=== PATIENT | female | born 1930 | race Caucasian/White ===

== ENCOUNTER → 2016-12-07 | Outpatient (CLI) | payer MEDICARE, BC | LOC: MW.CHGS 08:00 | PROVIDERS: ATTEND Surgery | DX: R19.09 Other intra-abdominal and pelvic swelling, mass and lump (principal) | CPT/HCPCS: 99203 ==

== ENCOUNTER 2016-12-15 16:53 | Emergency (ER) | payer MEDICARE, BC ==
--- NOTE | 2016-12-15 17:25 | EDM.PDOC ---
ED HPI GENERAL MEDICAL PROBLEM - General Chief Complaint: Upper Extremity Injury/Pain Stated Complaint: PT FELL AND HURT RT SHOULDER Time Seen by Provider: 12/15/16 17:00 Source of Information: Reports: Patient, Family (Daughter) History Limitations: Reports: No Limitations - History of Present Illness INITIAL COMMENTS - FREE TEXT/NARRATIVE: Presents stating that she was helping her daughter with some gardening when she missed a small step on the patio and fell striking her right shoulder on the ground. She has a skin tear on her right elbow, an abrasion on her right shoulder and a little pain in her right shoulder. Right Shoulder Pain Score (Numeric/FACES): 1 - Related Data Allergies Allergy/AdvReac Type Severity Reaction Status Date / Time No Known Allergies Allergy Verified 12/15/16 17:02 Home Meds: Home Meds Acetaminophen [Tylenol] 650 mg PO Q4H PRN 11/03/13 [History] DULoxetine [Cymbalta] 1 tab PO DAILY 11/03/13 [History] Methotrexate 1 tab PO ASDIRECTED 11/03/13 [History] Omeprazole 40 mg PO DAILY 11/03/13 [History] Vitamin B Complex 1 each PO DAILY 11/03/13 [History] traMADol [Ultram] 50 mg PO Q6H PRN 11/03/13 [History] Denosumab [Prolia] 1 injection IM ASDIRECTED 12/25/14 [History] oxyCODONE HCl/Acetaminophen [oxyCODONE-Acetaminophen 5-325] 1 tab PO ASDIRECTED PRN 12/25/14 [History] Past Medical History HEENT History: Reports: Hard of Hearing Other HEENT History: slight [place] Musculoskeletal History: Reports: Arthritis - Infectious Disease History Infectious Disease History: Reports: Chicken Pox, Measles, Mumps - Past Surgical History GI Surgical History: Reports: Appendectomy, Other (See Below) Other GI Surgeries/Procedures: stomach resection 3/4 Social & Family History - Family History Family Medical History: Noncontributory - Tobacco Use Smoking Status *Q: Never Smoker Years of Tobacco use: 25 - Alcohol Use Days Per Week of Alcohol Use: 0 - Recreational Drug Use Recreational Drug Use: No Review of Systems - Review of Systems Review Of Systems: ROS reveals no pertinent complaints other than HPI. ED EXAM, GENERAL - Physical Exam Exam: See Below Exam Limited By: No Limitations General Appearance: Alert, No Apparent Distress, Thin (Bony), Other (Conversive and jolly) Ears: Normal External Exam Nose: Normal Inspection Throat/Mouth: Normal Inspection Head: Atraumatic, Normocephalic Neck: Normal Inspection Respiratory/Chest: No Respiratory Distress, Lungs Clear, Normal Breath Sounds Cardiovascular: Normal Peripheral Pulses, Regular Rate, Rhythm, No Murmur GI/Abdominal: Normal Bowel Sounds, Soft Back Exam: Other (Severe kyphosis and scoliosis) Extremities: Other (Right shoulder with previous deformity per patient and her daughter. There is a small superficial abrasion over the right shoulder. There is a 6 cm bomerange skin tear to the right elbow that her daughter cleaned and dressed before arrival. Full range of motion of the right shoulder elbow wrist and digits to the limits of her pre-existing arthritis) Neurological: Alert, Oriented Psychiatric: Normal Affect, Normal Mood Skin Exam: Warm, Dry, Intact, Normal Color, No Rash Lymphatic: No Adenopathy Course - Vital Signs Last Recorded V/S: Last Vital Signs Temp 37.0 C 12/15/16 17:05 Pulse 65 12/15/16 17:05 Resp 16 12/15/16 17:05 BP 144/84 H 12/15/16 17:05 Pulse Ox 93 L 12/15/16 17:05 - Orders/Labs/Meds Orders: Active Orders 24 hr Category Date Time Status Shoulder Comp Rt [CR] Stat Exams 12/15/16 17:17 Taken Departure - Departure Time of Disposition: 18:25 Disposition: Home, Self-Care 01 Clinical Impression: Shoulder injury Qualifiers: Encounter type: initial encounter Laterality: right Qualified Code(s): S49.91XA - Unspecified injury of right shoulder and upper arm, initial encounter - Discharge Information Forms: ED Department Discharge Additional Instructions: 1. Cool packs 30 minutes on 30 minutes off first 24 hours while awake and as needed. 2. Curtail activity tonight and for 24 hours. 3. Tylenol as needed. - My Orders Last 24 Hours: My Active Orders 12/15/16 17:17 Shoulder Comp Rt [CR] Stat - Assessment/Plan Last 24 Hours: My Active Orders 12/15/16 17:17 Shoulder Comp Rt [CR] Stat
[2016-12-15 19:14] VITALS: BP 180/85
--- NOTE | 2016-12-17 14:41 | CR ---
EXAM DATE: 12/15/16 PATIENT'S AGE: 86 Patient: JAIME ANN Facility: [place], [place] Site . Site : 1930 Study: XRay Shoulder Right [id number]/3/2017 5:41:46 PM Ordering Physician: Doctor Molina Final Report: TECHNIQUE: Three views of the right shoulder. INDICATION: Fall and shoulder pain. COMPARISON: 11/03/2013. FINDINGS: The humeral head and glenoid are dysplastic. The humerus is displaced superiorly , and appears impacted on the scapular spine, which is fractured either acutely or subacutely. No other fracture is identified. The AC joint appears intact. Dictated by Jerry Hooker MD @ 12/15/2016 6:13:23 PM Dictated by: Jerry Hooker MD @ 12/15/2016 18:13:29 (Electronic Signature) Report Signed by Proxy. [email or web address]
== END 2016-12-15 19:12 | disposition home or self-care (01) ==
LOC: MW.ED 16:53
DX: S40.211A Abrasion of right shoulder, initial encounter (principal); W01.198A Fall on same level from slipping, tripping and stumbling with subsequent striking against other object, initial encounter; Z90.49 Acquired absence of other specified parts of digestive tract; Z79.899 Other long term (current) drug therapy
CPT/HCPCS: 73030-26-RT; 73030-RT; 99282; 99283

== ENCOUNTER 2017-02-06 08:51 | Day surgery (SDC) | payer MEDICARE, BC ==
[~2017-02-06 08:51] MED LIST: Bupivacaine 0.25%/EPINEPHrine 1:200,000 10 ML SDV INJECT ONE; Bupivacaine 0.25%/EPINEPHrine 1:200,000 10 ML SDV ONE; Lactated Ringers 1,000 ML IV SCH; ceFAZolin 1 GM in Premix Bag 1 BAG IV ONE
--- NOTE | 2017-02-06 09:29 | PCM.PREANE ---
Preanesthetic Assessment - Anesthesia/Transfusion/Family Hx Anesthesia History: Prior Anesthesia Without Reaction Family History of Anesthesia Reaction: No Transfusion History: No Prior Transfusion(s) Intubation History: Unknown - Review of Systems General: No Symptoms Pulmonary: No Symptoms Cardiovascular: No Symptoms Gastrointestinal: No Symptoms Neurological: No Symptoms Other: Reports: None - Physical Assessment Height: 1.47 m Weight: 40.37 kg ASA Class: 3 Mental Status: Alert & Oriented x3 Airway Class: Mallampati = 2 Dentition: Reports: Dentures (upper), Partial (lower) Thyro-Mental Finger Breadths: 3 Mouth Opening Finger Breadths: 2 ROM/Head Extension: Limited/Partial Lungs: Clear to Auscultation, Normal Respiratory Effort Cardiovascular: Regular Rate, Regular Rhythm - Allergies Allergies/Adverse Reactions: Allergies Allergy/AdvReac Type Severity Reaction Status Date / Time No Known Allergies Allergy Verified 12/15/16 17:02 - Blood Blood Available: No - Anesthesia Plan Pre-Op Medication Ordered: None - Acknowledgements Anesthesia Type Planned: MAC Pt an Appropriate Candidate for the Planned Anesthesia: Yes Alternatives and Risks of Anesthesia Discussed w Pt/Guardian: Yes Pt/Guardian Understands and Agrees with Anesthesia Plan: Yes PreAnesthesia Questionnaire HEENT History: Reports: Hard of Hearing, Macular Degeneration Other HEENT History: wears glasses, top denture & bottom partial Respiratory History: Reports: Other (See Below) (mass of left lung (unknown origen)) Other Gastrointestinal History: hx stomach cancer 20 years ago with subtotal gastric resection 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 History: Reports: None 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: Musculoskeletal History: Reports: Arthritis, Osteoporosis, RA, Other (See Below ) (bad scoliosis) Psychiatric History: Reports: Depression Hematologic History: Reports: Anemia Oncologic (Cancer) History: Reports: Other (See Below) Other Oncologic History: stomach - Infectious Disease History Infectious Disease History: Reports: Chicken Pox, Measles, Mumps - Past Surgical History Head Surgeries/Procedures: Reports: None HEENT Surgical History: Reports: Cataract Surgery GI Surgical History: Reports: Appendectomy, Colon, Other (See Below) Other GI Surgeries/Procedures: stomach resection for stomach cancer (3/4 of her stomach), partial bowel resection for "twisted bowel" Female Surgical History: Reports: Section Musculoskeletal Surgical History: Reports: Knee Replacement - SUBSTANCE USE Smoking Status *Q: Former Smoker Tobacco Use Within Last Twelve Months: Cigarettes Days Per Week of Alcohol Use: 0 Recreational Drug Use History: No - HOME MEDS Home Medications: Home Meds DULoxetine [Cymbalta] 30 mg PO DAILY 11/03/13 [History] Methotrexate 6 tab PO ASDIRECTED 11/03/13 [History] Omeprazole 20 mg PO DAILY 11/03/13 [History] traMADol [Ultram] 50 mg PO Q6H PRN 11/03/13 [History] Acetaminophen [Arthritis Pain Relief] 2 tab PO BID 02/01/17 [History] Calcium Phosphate Trib/Vit D3 [Calcium Adult Gummies] 600 mg CHEW BID 02/01/17 [ History] Denosumab [Prolia] 1 injection IM ASDIRECTED 02/01/17 [History] Docusate Sodium [Stool Softener] 100 mg PO BID 02/01/17 [History] Ferrous Sulfate [Iron] 325 mg PO ASDIRECTED 02/01/17 [History] Fish Oil/[employer]-3 Fatty Acids [Fish Oil 1,000 MG] 1 tab PO DAILY 02/01/17 [ History] Folic Acid 1 mg PO DAILY 02/01/17 [History] Multivitamin [Multivitamins] 1 tab PO DAILY 02/01/17 [History] Vit A/Vit C/Vit E/Zinc/Copper [Preservision] 1 tab PO DAILY 02/01/17 [History] - CURRENT (IN HOUSE) MEDS Current Meds: Current Medications Lactated Ringer's (Ringers, Lactated) 1,000 mls @ 75 mls/hr IV ASDIRECTED REPLACED BY [facility] Last Admin: 02/06/17 09:18 Dose: 75 mls/hr Discontinued Medications Bupivacaine HCl/Epinephrine Bitart (Marcaine 0.25%/Epinephrine 1:200,000) 20 ml INJECT ONETIME ONE Stop: 02/06/17 08:01 Bupivacaine HCl/Epinephrine Bitart (Marcaine 0.25%/Epinephrine 1:200,000) Confirm Administered Dose 30 ml .ROUTE .STK-MED ONE Stop: 02/06/17 07:23 Cefazolin Sodium/Dextrose 1 gm (/ Premix) 50 mls @ 100 mls/hr IV ONETIME ONE Stop: 02/06/17 08:54
[2017-02-06] MEDS ORDERED: Midazolam 1 MG/ML 2 ML SDV ONE (10:10)
[2017-02-06] MEDS ORDERED: Ondansetron 4 MG/2 ML SDV ONE (10:10)
[2017-02-06] MEDS ORDERED: fentaNYL 100 MCG/2 ML SDV ONE (10:10)
[2017-02-06] MEDS ORDERED: Propofol 200 MG/20 ML SDV ONE (10:10)
[2017-02-06] MEDS ORDERED: ceFAZolin 1 GM Vial ONE (10:22)
[2017-02-06 13:32] VITALS: BP 157/90
--- NOTE | 2017-02-07 09:07 | PCM.OPNOTE ---
- General Post-Op/Procedure Note Date of Surgery/Procedure: 02/06/17 Operative Procedure(s): excisoin of left groin/abdominal lymph node Pre Op Diagnosis: enlarged lymph node Post-Op Diagnosis: Same Anesthesia Technique: Local, MAC Primary Surgeon: Sherri Graves Assistant Program Director: Yanelis Unger Complications: None Condition: Good Free Text/Narrative:: [id number]
--- NOTE | 2017-02-07 09:59 | OR ---
SURGEON: JUDD PLATA MD DATE OF PROCEDURE: 02/06/2017 PREOPERATIVE DIAGNOSIS: Enlarged lymph node. POSTOPERATIVE DIAGNOSIS: Enlarged lymph node. PROCEDURE: Excision of left groin/abdominal lymph node. TOBACCO DRIER OPERATOR: KALANI Rodas INDICATION: Ms. Butts is an 86-year-old female with likely lymphoma, however, the biopsy has been nondiagnostic due to the necrotic nature of the tissues. We discussed options for excisional biopsy of the lymph node for a sufficient tissue for testing. She and her family would like to proceed. Risks were including, but not limited to, bleeding, infection, damage to underlying or overlying structures, possible need for future interventions and possible scarring. PROCEDURE IN DETAIL: After informed consent was obtained and placed on the chart, the patient was brought to the operative theater and laid in supine position. After adequate local MAC anesthetic was obtained, the area was prepped and draped, and a time- out was completed to confirm side and site. Attention was then paid to the elliptical excision of the mass in the left lower abdomen. A 15 blade was used to dissect through the skin and Bovie electrocautery through the subcutaneous tissues. This was circumferentially dissected and sent for pathology. Meticulous hemostasis was obtained, and the wound was closed using deep 3-0 Monocryl stitches and a running 4-0 subcuticular for the skin. This was dressed with Steri-Strips and Tegaderm border. The patient tolerated the procedure well. All counts and needles were correct at the end of the case. FOLLOWUP INSTRUCTIONS: The patient will see us in clinic in 10 days or sooner if any problems, questions, or concerns. She can shower per usual. KEMAL / JANNET /[phone]
== END 2017-02-06 13:19 | disposition home or self-care (01) ==
LOC: MW.SDS 08:51
PROVIDERS: ATTEND Plastic Surgery
PROC: 07TJ0ZZ Resection of Left Inguinal Lymphatic, Open Approach (ICD-10-PCS; principal; 2017-02-06)
DX: C83.35 Diffuse large B-cell lymphoma, lymph nodes of inguinal region and lower limb (principal); M19.90 Unspecified osteoarthritis, unspecified site; M81.0 Age-related osteoporosis without current pathological fracture; M06.9 Rheumatoid arthritis, unspecified; F32.9 Major depressive disorder, single episode, unspecified; Z85.028 Personal history of other malignant neoplasm of stomach; Z79.899 Other long term (current) drug therapy; Z90.49 Acquired absence of other specified parts of digestive tract; Z98.890 Other specified postprocedural states; Z96.659 Presence of unspecified artificial knee joint; Z87.891 Personal history of nicotine dependence
CPT/HCPCS: 38500; 88307; J0690; J2250; J2405; J3010; J7120; 00840; J2704

== ENCOUNTER 2017-02-07 18:04 | Emergency (ER) | payer MEDICARE, BC ==
--- NOTE | 2017-02-07 19:27 | EDM.PDOC ---
ED HPI GENERAL MEDICAL PROBLEM - General Stated Complaint: PT HAS LUMP ON RT LEG Time Seen by Provider: 02/07/17 18:41 Source of Information: Reports: Patient, Family History Limitations: Reports: No Limitations - History of Present Illness INITIAL COMMENTS - FREE TEXT/NARRATIVE: HISTORY AND PHYSICAL: [] 86-year-old female walks to the emergency room with her daughter concerned about right lower leg with erythema and a "lump" History of Present Illness: [] Patient had just had a small lesion removed from the left groin and now noticed this on her leg Patient has history of leukocytosis, hypertension, skin tears, arthritis Review of Systems: As per history of present illness and below otherwise all systems reviewed and negative. Past medical history: As per history of present illness and as reviewed below otherwise noncontributory. Surgical history: As per history of present illness and as reviewed below otherwise noncontributory. Social history: No reported history of drug or alcohol abuse. Family history: As per history of present illness and as reviewed below otherwise noncontributory. Physical exam: Pleasant woman alert and oriented. Answering questions appropriately HEENT: Atraumatic, normocehpalic, pupils reactive, negative for conjunctival pallor or scleral icterus, mucous membranes moist, throat clear, neck supple, nontender, trachea midline. Lungs: Clear to auscultation, breath sounds equal bilaterally, chest non tender. Heart: S1S2, regular, negative for clicks, rubs, or JVD. Abdomen: Soft, nondistended, nontender. Negative for masses or hepatossplenmegaly. Negative for costovertebral tenderness. Pelvis: Stable nontender. 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: Deferred. Rectal: Deferred Extremities: Atraumatic, negative for cords or calf pain. Erythema noted to the anterior surface of her right lower leg. Right calf has a sore that is erythematous mildly tender Neurovascular unremarkable. Neuro: Awake, alert, oriented. Cranial nerves II through XII unremarkable. Cerebellum unremarkable. Motor and sensory unremarkable throughout. Exam nonfocal. Diagnostics: [Ultrasound negative for any DVT] Therapeutics: [] Impression: [#1 cellulitis #2 localized skin infection] Plan: [Antibiotic therapy Augmentin 875 twice a day 10 days Symptomatic measures reviewed follow up with your primary care provider next week ] Definitive disposition and diagnosis as appropriate pending reevaluation and review of above. Onset: Today Duration: Hour(s): Location: Reports: Lower Extremity, Right Quality: Reports: Ache Severity: Mild Improves with: Reports: None Worsens with: Reports: None Right Lower Leg Pain Score (Numeric/FACES): 2 - Related Data Allergies Allergy/AdvReac Type Severity Reaction Status Date / Time No Known Allergies Allergy Verified 02/07/17 18:34 Home Meds: Home Meds Methotrexate 6 tab PO ASDIRECTED 11/03/13 [History] Omeprazole 20 mg PO DAILY 11/03/13 [History] traMADol [Ultram] 100 mg PO Q6H PRN 11/03/13 [History] Acetaminophen [Arthritis Pain Relief] 2 tab PO BID 02/01/17 [History] Calcium Phosphate Trib/Vit D3 [Calcium Adult Gummies] 600 mg CHEW BID 02/01/17 [ History] Docusate Sodium [Stool Softener] 100 mg PO BID 02/01/17 [History] Ferrous Sulfate [Iron] 650 mg PO ASDIRECTED 02/01/17 [History] Fish Oil/[employer]-3 Fatty Acids [Fish Oil 1,000 MG] 1 tab PO DAILY 02/01/17 [ History] Folic Acid 1 mg PO DAILY 02/01/17 [History] Multivitamin [Multivitamins] 1 tab PO DAILY 02/01/17 [History] Past Medical History HEENT History: Reports: Hard of Hearing, Macular Degeneration Other HEENT History: wears glasses, top denture & bottom partial Respiratory History: Reports: Other (See Below) (mass of left lung (unknown origen)) Other Gastrointestinal History: hx stomach cancer 20 years ago with subtotal gastric resection 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 History: Reports: None 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: Musculoskeletal History: Reports: Arthritis, Osteoporosis, RA, Other (See Below) Psychiatric History: Reports: Depression Hematologic History: Reports: Anemia Oncologic (Cancer) History: Reports: Other (See Below) Other Oncologic History: stomach - Infectious Disease History Infectious Disease History: Reports: Chicken Pox, Measles, Mumps - Past Surgical History Head Surgeries/Procedures: Reports: None HEENT Surgical History: Reports: Cataract Surgery GI Surgical History: Reports: Appendectomy, Colon, Other (See Below) Other GI Surgeries/Procedures: stomach resection for stomach cancer (3/4 of her stomach), partial bowel resection for "twisted bowel" Female Surgical History: Reports: Section Musculoskeletal Surgical History: Reports: Knee Replacement Dermatological Surgical History: Reports: Skin Biopsy Social & Family History - Family History Family Medical History: Noncontributory - Tobacco Use Smoking Status *Q: Never Smoker Years of Tobacco use: 25 Used Tobacco, but Quit: Yes Month Tobacco Last Used: quit smoking 33 yrs ago - Caffeine Use Caffeine Use: Reports: Coffee - Alcohol Use Days Per Week of Alcohol Use: 0 - Recreational Drug Use Recreational Drug Use: No Review of Systems - Review of Systems Review Of Systems: See Below ED EXAM, GENERAL - Physical Exam Exam: See Below (See dictation) Course - Vital Signs Last Recorded V/S: Last Vital Signs Temp 36.6 C 02/07/17 18:35 Pulse 86 02/07/17 18:35 Resp 16 02/07/17 18:35 BP 134/85 02/07/17 18:35 Pulse Ox 92 L 02/07/17 18:35 - Orders/Labs/Meds Orders: Active Orders 24 hr Category Date Time Status Venous Doppler Lwr Ext Rt [US] Stat Exams 02/07/17 18:14 Taken Departure - Departure Time of Disposition: 19:30 Disposition: Home, Self-Care 01 Condition: Good Clinical Impression: Cellulitis - Discharge Information - My Orders Last 24 Hours: My Active Orders 02/07/17 18:14 Venous Doppler Lwr Ext Rt [US] Stat - Assessment/Plan Last 24 Hours: My Active Orders 02/07/17 18:14 Venous Doppler Lwr Ext Rt [US] Stat
[2017-02-08 03:15] VITALS: BP 124/65
--- NOTE | 2017-02-08 18:03 | US ---
EXAM DATE: 02/07/17 PATIENT'S AGE: 86 Patient: JAIME ANN Facility: [place], [place] Site . Site : 1930 Study: US Extremity Right [id number]/27/2017 7:15:31 PM Ordering Physician: Doctor Molina Final Report: INDICATION: R leg red, warm, post op INDICATION: Right lower extremity pain and swelling TECHNIQUE: Ultrasound venous duplex lower right extremity. Compression venous exam was performed using ko-scale, color Doppler, and spectral Doppler imaging. COMPARISON: FINDINGS: Sonographic imaging demonstrates the right common femoral, deep femoral, superficial femoral, popliteal, posterior tibial and greater saphenous and the contralateral left common femoral veins to be fully compressible with normal color Doppler blood flow. Complex hypoechoic and slightly echogenic nodular density in the medial calf region is identified measuring 2.7 x 2.2 x 2.7 centimeters is identified. IMPRESSION: Normal right lower extremity venous ultrasound, no sign of deep venous thrombosis. Complex nodular density in the medial right lower extremity calf region is identified which may reflect a hematoma but is nonspecific by ultrasound. Dictated by Nathan Atkinson MD @ 02/07/2017 7:29:54 PM Dictated by: Nathan Atkinson MD @ 02/07/2017 19:30:00 (Electronic Signature) Report Signed by Proxy. ARIA
== END 2017-02-07 20:04 | disposition home or self-care (01) ==
LOC: MW.ED 18:04
DX: L03.115 Cellulitis of right lower limb (principal); M19.90 Unspecified osteoarthritis, unspecified site; M81.0 Age-related osteoporosis without current pathological fracture; Z86.2 Personal history of diseases of the blood and blood-forming organs and certain disorders involving the immune mechanism; Z85.028 Personal history of other malignant neoplasm of stomach; Z98.49 Cataract extraction status, unspecified eye; Z90.49 Acquired absence of other specified parts of digestive tract; Z96.659 Presence of unspecified artificial knee joint; Z87.891 Personal history of nicotine dependence; Z79.899 Other long term (current) drug therapy
CPT/HCPCS: 93971-26-RT; 93971-RT; 99283; 99284-25

== ENCOUNTER 2017-03-05 10:12 | Inpatient (IN) | payer MEDICARE, BC ==
[2017-03-05] MEDS ORDERED: Albuterol/Ipratropium 3.0-0.5 MG/3 ML Neb Soln NEB ONE (10:23)
[2017-03-05] MEDS ORDERED: Sodium Chloride 0.9% 1,000 ML IV ONE (10:25)
--- NOTE | 2017-03-05 10:26 | EDM.PDOC ---
ED HPI GENERAL MEDICAL PROBLEM - General Chief Complaint: Respiratory Problem Stated Complaint: TROUBLE BREATHING Time Seen by Provider: 03/05/17 10:26 Source of Information: Reports: Patient, Family History Limitations: Reports: No Limitations - History of Present Illness INITIAL COMMENTS - FREE TEXT/NARRATIVE: HISTORY AND PHYSICAL: 86-year-old female presenting to the emergency room today with complaints of difficulty breathing History of Present Illness: 86-year-old female presents to the emergency room today with family member with complaints of difficulty breathing. Patient relates more difficulty getting breath in. Patient had her first chemotherapy treatment last week for her lymphoma . Saturday presented to the cancer center and had a Neupogen injection. Daughter is at bedside. Patient does have PICC line in place. Review of Systems: As per history of present illness and below otherwise all systems reviewed and negative. Past medical history: As per history of present illness and as reviewed below otherwise noncontributory. Surgical history: As per history of present illness and as reviewed below otherwise noncontributory. Social history: No reported history of drug or alcohol abuse. Family history: As per history of present illness and as reviewed below otherwise noncontributory. Physical exam: Very fragile-looking female who is alert answers questions appropriately is having to utilize neck muscles to help with breathing. O2 at 3 L per nasal cannula saturation level is 95%. HEENT: Atraumatic, normocehpalic, pupils reactive, negative for conjunctival pallor or scleral icterus, mucous membranes moist, throat clear, neck supple, nontender, trachea midline. Lungs: Clear to auscultation, diminished breath sounds equal bilaterally, chest non tender. Heart: S1S2, regular, negative for clicks, rubs, or JVD. Abdomen: Soft, nondistended, nontender. Negative for masses or hepatossplenmegaly. Negative for costovertebral tenderness. Pelvis: Stable nontender. 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: Deferred. Rectal: Deferred Extremities: Atraumatic, negative for cords or calf pain. Neurovascular unremarkable. Neuro: Awake, alert, oriented. Cranial nerves II through XII unremarkable. Cerebellum unremarkable. Motor and sensory unremarkable throughout. Exam nonfocal. Discussed case with patient and her daughter she does have a diagnosis of pneumonia. Would like to inpatient admission and have discussed this with Dr. Nathan Herrera who is in agreement with this course of action. Patient was started on Rocephin while in the emergency department and given by mouth azithromycin. Diagnostics: [CBC CMP chest x-ray EKG] Therapeutics: []500 bolus normal saline RT treatment of DuoNeb Rocephin 1 g IV Azithromycin 500 mg by mouth Impression: [#1 pneumonia #2 hypoxemia] Plan: []Admission to medical surgical floor Definitive disposition and diagnosis as appropriate pending reevaluation and review of above. Onset: Sudden Duration: Day(s): (2), Getting Worse Location: Reports: Chest Severity: Moderate - Related Data Allergies Allergy/AdvReac Type Severity Reaction Status Date / Time No Known Allergies Allergy Verified 03/05/17 10:31 Home Meds: Home Meds Methotrexate 6 tab PO ASDIRECTED 11/03/13 [History] Omeprazole 20 mg PO DAILY 11/03/13 [History] traMADol [Ultram] 100 mg PO Q6H PRN 11/03/13 [History] Acetaminophen [Arthritis Pain Relief] 2 tab PO BID 02/01/17 [History] Calcium Phosphate Trib/Vit D3 [Calcium Adult Gummies] 500 mg CHEW BID 02/01/17 [ History] Docusate Sodium [Stool Softener] 100 mg PO BID 02/01/17 [History] Ferrous Sulfate [Iron] 650 mg PO ASDIRECTED 02/01/17 [History] Fish Oil/[place]-3 Fatty Acids [Fish Oil 1,000 MG] 1 tab PO DAILY 02/01/17 [ History] Folic Acid 1 mg PO DAILY 02/01/17 [History] Multivitamin [Multivitamins] 1 tab PO DAILY 02/01/17 [History] Past Medical History HEENT History: Reports: Hard of Hearing, Macular Degeneration Other HEENT History: wears glasses, top denture & bottom partial Respiratory History: Reports: Other (See Below) (mass of left lung (unknown origen)) Other Gastrointestinal History: hx stomach cancer 20 years ago with subtotal gastric resection 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 History: 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: Musculoskeletal History: Reports: Arthritis, Osteoporosis, RA, Other (See Below) Psychiatric History: Reports: Depression Hematologic History: Reports: Anemia Oncologic (Cancer) History: Reports: Other (See Below) Other Oncologic History: stomach - Infectious Disease History Infectious Disease History: Reports: Chicken Pox, Measles, Mumps - Past Surgical History Head Surgeries/Procedures: Reports: None HEENT Surgical History: Reports: Cataract Surgery GI Surgical History: Reports: Appendectomy, Colon, Other (See Below) Other GI Surgeries/Procedures: stomach resection for stomach cancer (3/4 of her stomach), partial bowel resection for "twisted bowel" Female Surgical History: Reports: Section Musculoskeletal Surgical History: Reports: Knee Replacement Dermatological Surgical History: Reports: Skin Biopsy Social & Family History - Family History Family Medical History: Noncontributory - Tobacco Use Smoking Status *Q: Never Smoker Years of Tobacco use: 25 Used Tobacco, but Quit: Yes Month Tobacco Last Used: quit smoking 33 yrs ago - Caffeine Use Caffeine Use: Reports: Coffee - Alcohol Use Days Per Week of Alcohol Use: 0 - Recreational Drug Use Recreational Drug Use: No ED ROS GENERAL - Review of Systems Review Of Systems: ROS reveals no pertinent complaints other than HPI. ED EXAM, GENERAL - Physical Exam Exam: See Below (see dictation) EKG INTERPRETATION EKG Date: 03/05/17 Rhythm: NSR Course - Vital Signs Last Recorded V/S: Last Vital Signs Temp 36.3 C 03/05/17 10:17 Pulse 102 H 03/05/17 11:30 Resp 18 03/05/17 11:30 BP 139/83 03/05/17 11:30 Pulse Ox 96 03/05/17 11:30 - Orders/Labs/Meds Orders: Active Orders 24 hr Category Date Time Status Patient Status [ADT] Stat ADT 03/05/17 11:56 Ordered EKG Documentation Completion [RC] STAT Care 03/05/17 10:24 Active Oxygen Therapy, ED [RC] ASDIRECTED Care 03/05/17 10:23 Active RT Aerosol Therapy [RC] ASDIRECTED Care 03/05/17 10:24 Active COMPREHENSIVE METABOLIC PN,CMP [CHEM] Stat Lab 03/05/17 10:54 Received Azithromycin [Zithromax] Med 03/05/17 12:00 Ordered 500 mg PO Q24H cefTRIAXone [Rocephin in Dextrose,Iso-Osm 1 GM/50 ML] 1 Med 03/05/17 11:49 Ordered gm Premix Bag 1 bag IV ONETIME Medication Orders Azithromycin (Zithromax) 500 mg PO Q24H CATIE Ceftriaxone Sodium/Dextrose 1 (gm/ Premix) 50 mls @ 100 mls/hr IV ONETIME ONE Stop: 08/22/17 12:18 Labs: Laboratory Tests 03/05/17 03/05/17 Range/Units 10:54 10:54 WBC 22.70 H (4.0-11.0) K/uL RBC 3.22 L (4.30-5.90) M/uL Hgb 10.6 L (12.0-16.0) g/dL Hct 32.2 L (36.0-46.0) % MCV 100.0 H (80.0-98.0) fL MCH 32.9 H (27.0-32.0) pg MCHC 32.9 (31.0-37.0) g/dL RDW Std Deviation 62.3 H (28.0-62.0) fl RDW Coeff of Monica 17 H (11.0-15.0) % Plt Count 59 L (150-400) K/uL MPV 10.70 (7.40-12.00) fL Add Manual Diff YES Neutrophils % (Manual) 98 H (48.0-80.0) % Band Neutrophils % 1 % Lymphocytes % (Manual) 1 L (16.0-40.0) % Nucleated RBC % 0.0 /100WBC Absolute Seg Neuts 22.2 Band Neutrophils # 0.2 Lymphocytes # (Manual) 0.2 Nucleated RBCs # 0 K/uL B-Natriuretic Peptide 741 H (<100) PG/ML Meds: Medications Generic Name Dose Route Start Last Admin Trade Name Freq PRN Reason Stop Dose Admin Azithromycin 500 mg 03/05/17 12:00 Zithromax PO Q24H CATIE Ceftriaxone Sodium/Dextrose 1 50 mls @ 100 mls/hr 03/05/17 11:49 gm/ Premix IV 03/05/17 12:18 ONETIME ONE Discontinued Medications Generic Name Dose Route Start Last Admin Trade Name Freq PRN Reason Stop Dose Admin Albuterol/Ipratropium 3 ml 03/05/17 10:23 03/05/17 10:31 Duoneb 3.0-0.5 Mg/3 Ml NEB 03/05/17 10:24 3 ml ONETIME ONE Administration Sodium Chloride 1,000 mls @ 999 mls/hr 03/05/17 10:25 03/05/17 10:58 Normal Saline IV 03/05/17 11:25 999 mls/hr STAT ONE Administration Departure - Departure Time of Disposition: 12:00 Disposition: Admitted As Inpatient 64 Condition: Good Clinical Impression: Hypoxemia Pneumonia Qualifiers: Pneumonia type: due to unspecified organism Laterality: unspecified laterality Lung location: lower lobe of lung Qualified Code(s): J18.1 - Lobar pneumonia, unspecified organism - Discharge Information Additional Instructions: The following information is given to patients seen in the emergency department who are being discharged to home. This information is to outline your options for follow-up care. We provide all patients seen in our emergency department with a follow-up referral. The need for follow-up, as well as the timing and circumstances, are variable depending upon the specifics of your emergency department visit. If you don't have a primary care physician on staff, we will provide you with a referral. We always advise you to contact your personal physician following an emergency department visit to inform them of the circumstance of the visit and for follow-up with them and/or the need for any referrals to a consulting specialist. The emergency department will also refer you to a specialist when appropriate. This referral assures that you have the opportunity for followup care with a specialist. All of these measure are taken in an effort to provide you with optimal care, which includes your followup. Under all circumstances we always encourage you to contact your private physician who remains a resource for coordinating your care. When calling for followup care, please make the office aware that this follow-up is from your recent emergency room visit. If for any reason you are refused follow-up, please contact the [facility] emergency department at and asked to speak to the emergency department charge nurse. - My Orders Last 24 Hours: My Active Orders 03/05/17 10:23 Oxygen Therapy, ED [RC] ASDIRECTED 03/05/17 10:24 EKG Documentation Completion [RC] STAT RT Aerosol Therapy [RC] ASDIRECTED 03/05/17 10:54 COMPREHENSIVE METABOLIC PN,CMP [CHEM] Stat 03/05/17 11:49 cefTRIAXone [Rocephin in Dextrose,Iso-Osm 1 GM/50 ML] 1 gm Premix Bag 1 bag IV ONETIME 03/05/17 11:56 Patient Status [ADT] Stat 03/05/17 12:00 Azithromycin [Zithromax] 500 mg PO Q24H - Assessment/Plan Last 24 Hours: My Active Orders 03/05/17 10:23 Oxygen Therapy, ED [RC] ASDIRECTED 03/05/17 10:24 EKG Documentation Completion [RC] STAT RT Aerosol Therapy [RC] ASDIRECTED 03/05/17 10:54 COMPREHENSIVE METABOLIC PN,CMP [CHEM] Stat 03/05/17 11:49 cefTRIAXone [Rocephin in Dextrose,Iso-Osm 1 GM/50 ML] 1 gm Premix Bag 1 bag IV ONETIME 03/05/17 11:56 Patient Status [ADT] Stat 03/05/17 12:00 Azithromycin [Zithromax] 500 mg PO Q24H
--- NOTE | 2017-03-05 11:33 | CR ---
EXAMINATION: Portable chest radiograph. HISTORY: Shortness of breath. FINDINGS: The trachea is midline. The cardiomediastinal silhouette is within normal limits. The heart is borde rline in size. Bibasilar atelectasis and/or infiltrate, right greater than left. Trace bilateral ple ural effusions not excluded. There is a right-sided PICC line with tip in the SVC. Neuropathic changes noted within the right shoulder and degenerative changes noted within the left. IMPRESSION: Mild bibasilar atelectasis and/or infiltrate with a trace bilateral pleural effusions.
[2017-03-05] MEDS ORDERED: cefTRIAXone 1 GM in Premix Bag 1 BAG IV ONE (11:49)
[2017-03-05] MEDS ORDERED: Azithromycin 250 MG Tab PO SCH (12:00)
[2017-03-05 12:29] LABS: CHLORIDE,CL 103 mmol/L (98-110); SODIUM,NA 135 mmol/L (136-146)
[2017-03-05] MEDS ORDERED: Albuterol 0.083% 2.5 MG/3 ML Neb Soln NEB PRN (13:19)
[2017-03-05] MEDS ORDERED: Ondansetron 4 MG/2 ML SDV IVPUSH PRN (13:19)
[2017-03-05] MEDS ORDERED: traMADol 50 MG Tab PO PRN (13:28)
[2017-03-05] MEDS ORDERED: Sodium Chloride 0.9% 10 ML Syringe FLUSH PRN (13:31)
--- NOTE | 2017-03-05 13:31 | PCM.HP ---
H&P History of Present Illness - General Date of Service: 03/05/17 Admit Problem/Dx: Admission Diagnosis/Problem Admission Diagnosis/Problem Pneumonia Source of Information: Patient, Family (Daughter,Brissa, at bedside) History Limitations: Reports: No Limitations - History of Present Illness Initial Comments - Free Text/Narative: This 86 year old female with pmh of newly diagnosed B cell lymphoma and arthritis presented to the ED this morning with complaints of worsening shortness of breath. She reports this started yesterday but became much worse today. She reports some pleuritic chest pain with deep breathing to bilateral lower lung reynoso. Reports scant cough, which is non-productive. She denies fever, chills or chest pain. No palpitations, N/V, black or bloody BMS, no abdominal pain, no diarrhea and no urinary symptoms. She reports having her first Chemotherapy on February 28. She was then given Neupogen injection on Saturday, March 01 and started on a 5 day taper of Prednisone. She felt good all weekend, watered her loredo, went to [facility]. Then Saturday started feeling short of breath. She has had some family member around her who have had colds. In the ED, WBC 22,700, Hgb 10.6, Platelets 59,000. BUN 24, Cr 0.6. CXR revealed mild bibasilar atelectasis vs infiltrate with trace bilateral pleural effusions. She was noted to be hypoxic on RA in mid 80s on arrival, HR 70-100s, BP 130-140/80s, Afebrile. She was treated with Azithromycin 500 mg and Rocpehin IV 1 gm. She will be admitted for community acquired pneumonia and hypoxia. Chemotherapy regimen is R-CHOP, which can cause thrombocytopenia. Will monitor. Dr. Ge is her oncologist and PCP Dr. Buck Evans. lower back Pain Score (Numeric/FACES): 4 - Related Data Allergies/Adverse Reactions: Allergies Allergy/AdvReac Type Severity Reaction Status Date / Time No Known Allergies Allergy Verified 03/05/17 10:31 Home Medications: Home Meds Methotrexate 6 tab PO ASDIRECTED 11/03/13 [History] Omeprazole 20 mg PO DAILY 11/03/13 [History] traMADol [Ultram] 100 mg PO Q6H PRN 11/03/13 [History] Calcium Phosphate Trib/Vit D3 [Calcium Adult Gummies] 500 mg CHEW BID 02/01/17 [ History] Docusate Sodium [Stool Softener] 100 mg PO BID 02/01/17 [History] Ferrous Sulfate [Iron] 650 mg PO ASDIRECTED 02/01/17 [History] Fish Oil/[place]-3 Fatty Acids [Fish Oil 1,000 MG] 1 tab PO DAILY 02/01/17 [ History] Folic Acid 1 mg PO DAILY 02/01/17 [History] Multivitamin [Multivitamins] 1 tab PO DAILY 02/01/17 [History] Acetaminophen [Tylenol Extra Strength] 1,000 mg PO Q12H 03/05/17 [History] Past Medical History HEENT History: Reports: Hard of Hearing, Macular Degeneration Other HEENT History: wears glasses, top denture & bottom partial Respiratory History: Reports: SOB (intermittent SOB "for years"). Denies: COPD , PE Other Gastrointestinal History: hx stomach cancer 20 years ago with subtotal gastric resection 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 History: Reports: None. 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: Musculoskeletal History: Reports: Arthritis, Osteoporosis, RA Psychiatric History: Reports: Depression Endocrine/Metabolic History: Denies: Diabetes, Type II, Hypothyroidism Hematologic History: Reports: Anemia Oncologic (Cancer) History: Reports: Lymphoma, Other (See Below) Other Oncologic History: hx of stomach ca - Infectious Disease History Infectious Disease History: Reports: Chicken Pox, Measles, Mumps - Past Surgical History Head Surgeries/Procedures: Reports: None HEENT Surgical History: Reports: Cataract Surgery GI Surgical History: Reports: Appendectomy, Colon, Other (See Below) Other GI Surgeries/Procedures: stomach resection for stomach cancer (3/4 of her stomach), partial bowel resection for "twisted bowel" Female Surgical History: Reports: Section Musculoskeletal Surgical History: Reports: Knee Replacement Dermatological Surgical History: Reports: Skin Biopsy Social & Family History - Family History Family Medical History: Noncontributory - Tobacco Use Smoking Status *Q: Never Smoker Years of Tobacco use: 25 Used Tobacco, but Quit: Yes Month Tobacco Last Used: quit smoking 33 yrs ago - Caffeine Use Caffeine Use: Reports: Coffee - Alcohol Use Days Per Week of Alcohol Use: 0 - Recreational Drug Use Recreational Drug Use: No - Living Situation & Occupation Living situation: Reports: Alone, Other (family near by) Occupation: Retired H&P Review of Systems - Review of Systems: Review Of Systems: See Below General: Reports: Fatigue. Denies: Fever, Chills, Malaise, Diaphoresis HEENT: Reports: Headaches (mild headache this afternoon). Denies: Hearing Changes, Rhinitis, Sinus Congestion, Sore Throat Pulmonary: Reports: Shortness of Breath, Cough. Denies: Wheezing, Sputum, Hemoptysis Cardiovascular: Reports: Dyspnea on Exertion. Denies: Chest Pain, Palpitations , Edema Gastrointestinal: Reports: No Symptoms, Flatus. Denies: Abdominal Pain, Black Stool, Bloody Stool, Distension, Nausea, Vomiting 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: Reports: No Symptoms. Denies: Dysuria, Frequency, Burning, Pain Musculoskeletal: Reports: No Symptoms. Denies: Neck Pain, Joint Pain Skin: Reports: No Symptoms Psychiatric: Reports: No Symptoms. Denies: Confusion, Anxiety Neurological: Reports: No Symptoms. Denies: Confusion, Numbness, Paresthesia, Weakness Hematologic/Lymphatic: Reports: No Symptoms Immunologic: Reports: No Symptoms Exam - Exam Exam: See Below - Vital Signs Vital Signs: Last Vital Signs Temp 97.4 F 03/05/17 10:17 Pulse 108 H 03/05/17 12:16 Resp 18 03/05/17 12:16 BP 140/80 03/05/17 12:16 Pulse Ox 95 03/05/17 12:16 Weight: 40.823 kg - Exam Quality Assessment: Central Line/PICC (PICC to R upper arm) General: Alert, Oriented, Cooperative HEENT: Conjunctiva Clear, Mucosa Moist & [place], Nares Patent, Posterior Pharynx Clear, Pupils Equal, Pupils Reactive, TMs Clear Neck: Supple, Trachea Midline, Full Range of Motion. No: Lymphadenopathy Lungs: Crackles (fine crackles to bilateral bases.), Other (dyspnea with speech noted, ). 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.) Skin: Warm, Dry, Intact Neuro Extensive - Mental Status: Alert, Oriented x3, Normal Mood/Affect, Normal Cognition Neuro Extensive - Motor, Sensory, Reflexes: CN II-XII Intact, Normal Gait, Normal Reflexes Psychiatric: Alert, Normal Affect, Normal Mood - Patient Data Result Diagrams: 03/05/17 10:54 03/05/17 10:54 *Q Meaningful Use (ADM) - VTE *Q VTE Criteria *Q: - Stroke *Q Stroke Criteria *Q: - AMI *Q AMI Criteria *Q: - Problem List (1) Pneumonia SNOMED Code(s): 299838526 ICD Code: J18.9 - PNEUMONIA, UNSPECIFIED ORGANISM Status: Acute Current Visit: Yes Qualifiers: Pneumonia type: due to unspecified organism Laterality: bilateral Lung location: lower lobe of lung Qualified Code(s): J18.9 - Pneumonia, unspecified organism (2) Hypoxemia SNOMED Code(s): 973418882 ICD Code: R09.02 - HYPOXEMIA Status: Acute Current Visit: Yes (3) Thrombocytopenia SNOMED Code(s): 564240528 ICD Code: D69.6 - THROMBOCYTOPENIA, UNSPECIFIED Status: Acute Current Visit: Yes (4) Leukocytosis SNOMED Code(s): 965264422, 676411804 ICD Code: D72.829 - ELEVATED WHITE BLOOD CELL COUNT, UNSPECIFIED Status: Acute Current Visit: No (5) Lymphoma SNOMED Code(s): 756077037 ICD Code: C85.90 - NON-HODGKIN LYMPHOMA, UNSPECIFIED, UNSPECIFIED SITE Status: Chronic Current Visit: Yes Qualifiers: 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 CAP: Will treat with Rocephin and Azithromycin, leukocytosis likely secondary to recent Neupogen injection and Prednisone therapy after chemotherapy. BC pending, will attempt to obtain sputum. Repeat labwork in am. Oxygen and Duonebs PRN. 2. Arthritis: Continue Tylenol and Tramadol. 3. Thrombocytopenia: B cell lymphoma with recent chemotherapy, R-CHOP on February 28. Monitor closely. Denies bleeding and no petechiea noted. VTE prophylaxis: SCDs for now, monitor platelets closely. Dispo: 2-3 days pending improvement.
[2017-03-05] MEDS: Albuterol/Ipratropium 3.0-0.5 MG/3 ML Neb Soln NEB SCH (18:14)
[2017-03-05] MEDS: Acetaminophen 500 MG Tab PO SCH (20:20)
[2017-03-05] MEDS: Docusate Sodium 100 MG Cap PO SCH (20:22)
[2017-03-05] MEDS: Melatonin 3 MG Tab PO SCH (20:23)
[2017-03-05] MEDS: [UNRECOGNIZED DRUG - OTHER] CHEW SCH (20:23)
[2017-03-05] MEDS: Fish Oil/Omega-3 Fatty Acids 1 Gm Cap PO SCH (20:23)
[2017-03-05] MEDS ORDERED: Heparin Sodium 5,000 Units/ML Vial SUBCUT SCH (21:00)
[2017-03-06] MEDS: Albuterol/Ipratropium 3.0-0.5 MG/3 ML Neb Soln NEB SCH ×5 (00:16→23:36)
[2017-03-06 05:44] LABS: CHLORIDE,CL 106 mmol/L (98-110); SODIUM,NA 136 mmol/L (136-146)
[2017-03-06] MEDS: Acetaminophen 500 MG Tab PO SCH ×2 (08:39→20:13)
[2017-03-06] MEDS: traMADol 50 MG Tab PO SCH ×2 (08:39→20:14)
[2017-03-06] MEDS: Docusate Sodium 100 MG Cap PO SCH ×2 (08:40→20:13)
[2017-03-06] MEDS: Omeprazole 20 MG Cap.CR PO SCH (08:40)
[2017-03-06] MEDS: Multivitamins with Iron/Calcium/Folic Acid/Minerals Tab PO SCH (08:40)
[2017-03-06] MEDS: Folic Acid 1 MG Tab PO SCH (08:40)
[2017-03-06] MEDS: Azithromycin 250 MG Tab PO SCH (08:40)
--- NOTE | 2017-03-06 10:05 | PCM.PN ---
- General Info Date of Service: 03/06/17 Admission Dx/Problem (Free Text): Admission Diagnosis/Problem Admission Diagnosis/Problem Pneumonia Subjective Update: Reports feeling better today. Coughing a little more today, non-productive but feels congestion now in chest. SOB is better. Has some with activity at baseline. No chest pain or palpitations. No fever or chills. Functional Status: Reports: Pain Controlled - Review of Systems General: Reports: No Symptoms. Denies: Fever, Weakness, Fatigue HEENT: Reports: No Symptoms Pulmonary: Reports: Shortness of Breath (scant, improving.), Cough. Denies: Sputum Cardiovascular: Reports: No Symptoms. Denies: Chest Pain, Palpitations Gastrointestinal: Denies: Abdominal Pain, Constipation, Decreased Appetite, Nausea, Vomiting 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: Reports: No Symptoms. Denies: Dysuria, Frequency, Burning, Pain Musculoskeletal: Reports: No Symptoms Skin: Reports: No Symptoms Neurological: Reports: No Symptoms Psychiatric: Reports: No Symptoms - Patient Data Vitals - Most Recent: Last Vital Signs Temp 98.2 F 03/06/17 08:34 Pulse 66 03/06/17 08:34 Resp 20 03/06/17 08:34 BP 145/70 H 03/06/17 08:34 Pulse Ox 93 L 03/06/17 08:34 Weight - Most Recent: 40.823 kg I&O - Last 24 Hours: Intake & Output 03/05/17 03/06/17 03/06/17 22:59 06:59 14:59 Intake Total 400 318 Output Total 700 700 Balance -300 -382 Lab Results Last 24 Hours: Laboratory Results - last 24 hr 03/05/17 03/06/17 03/06/17 Range/Units 21:24 05:20 05:20 WBC 6.25 (4.0-11.0) K/uL RBC 2.84 L (4.30-5.90) M/uL Hgb 9.2 L (12.0-16.0) g/dL Hct 28.2 L (36.0-46.0) % MCV 99.3 H (80.0-98.0) fL MCH 32.4 H (27.0-32.0) pg MCHC 32.6 (31.0-37.0) g/dL RDW Std Deviation 60.8 (28.0-62.0) fl RDW Coeff of Monica 17 H (11.0-15.0) % Plt Count 36 L (150-400) K/uL MPV 11.80 (7.40-12.00) fL Add Manual Diff YES Neutrophils % (Manual) 90 H (48.0-80.0) % Band Neutrophils % 5 % Lymphocytes % (Manual) 2 L (16.0-40.0) % Eosinophils % (Manual) 3 (0.0-7.0) % Nucleated RBC % 0.0 /100WBC Absolute Seg Neuts 5.6 Band Neutrophils # 0.3 Lymphocytes # (Manual) 0.1 Eosinophils # (Manual) 0.2 Nucleated RBCs # 0 K/uL Lactate 1.0 (0.20-2.00) mmol/L Sodium 136 (136-146) mmol/L Potassium 3.9 (3.5-5.1) mmol/L Chloride 106 (98-110) mmol/L Carbon Dioxide 25 (21-31) mmol/L BUN 18 (6.0-23.0) mg/dL Creatinine 0.6 (0.6-1.5) mg/dL Est Cr Clr Drug Dosing 41.77 mL/min Estimated GFR (MDRD) > 60.0 ml/min Glucose 81 (60-110) mg/dL Calcium 8.1 L (8.8-10.8) mg/dL Med Orders - Current: Current Medications Acetaminophen (Tylenol Extra Strength) 1,000 mg PO Q12H [facility] Last Admin: 03/06/17 08:39 Dose: 1,000 mg Albuterol (Proventil Neb Soln) 2.5 mg NEB Q2H PRN PRN Reason: Shortness Of Breath/wheezing Albuterol/Ipratropium (Duoneb 3.0-0.5 Mg/3 Ml) 3 ml NEB Q6HRRT [facility] Last Admin: 03/06/17 06:10 Dose: 3 ml Azithromycin (Zithromax) 250 mg PO Q24H [facility] Last Admin: 03/06/17 08:40 Dose: 250 mg Docusate Sodium (Colace) 100 mg PO BID [facility] Last Admin: 03/06/17 08:40 Dose: 100 mg Ferrous Sulfate (Ferrous Sulfate) 325 mg PO TuThSa@0830 [facility] Fish Oil (Fish Oil) 1 gm PO BEDTIME [facility] Last Admin: 03/05/17 20:23 Dose: Not Given Folic Acid (Folic Acid) 1 mg PO DAILY [facility] Last Admin: 03/06/17 08:40 Dose: 1 mg Ceftriaxone Sodium/Dextrose 1 (gm/ Premix) 50 mls @ 100 mls/hr IV Q24H [facility] Melatonin (Melatonin) 3 mg PO BEDTIME [facility] Last Admin: 03/05/17 20:23 Dose: Not Given Multivitamins/Minerals (Thera M Plus) 1 tab PO DAILY [facility] Last Admin: 03/06/17 08:40 Dose: 1 tab Omeprazole (Omeprazole) 20 mg PO DAILY [facility] Last Admin: 03/06/17 08:40 Dose: 20 mg Ondansetron HCl (Zofran) 4 mg IVPUSH Q4H PRN PRN Reason: Nausea Ptom Calcium Adult (Gummies 500mg) 1 each CHEW BID [facility] Last Admin: 03/05/17 20:23 Dose: Not Given Sodium Chloride (Saline Flush) 10 ml FLUSH ASDIRECTED PRN PRN Reason: flush Tramadol HCl (Ultram) 50 mg PO BID [facility] Last Admin: 03/06/17 08:39 Dose: 50 mg Discontinued Medications Albuterol/Ipratropium (Duoneb 3.0-0.5 Mg/3 Ml) 3 ml NEB ONETIME ONE Stop: 03/05/17 10:24 Last Admin: 03/05/17 10:31 Dose: 3 ml Azithromycin (Zithromax) 500 mg PO Q24H [facility] Last Admin: 03/05/17 12:15 Dose: 500 mg Heparin Sodium (Porcine) (Heparin Sodium) 5,000 units SUBCUT Q12HR [facility] Sodium Chloride (Normal Saline) 1,000 mls @ 999 mls/hr IV STAT ONE Stop: 03/05/17 11:25 Last Admin: 03/05/17 10:58 Dose: 999 mls/hr Ceftriaxone Sodium/Dextrose 1 (gm/ Premix) 50 mls @ 100 mls/hr IV ONETIME ONE Stop: 03/05/17 12:18 Last Admin: 03/05/17 12:10 Dose: 100 mls/hr Tramadol HCl (Ultram) 100 mg PO Q6H PRN PRN Reason: Pain Last Admin: 03/05/17 20:15 Dose: 100 mg - Exam Quality Assessment: Supplemental Oxygen General: Alert, Oriented, Cooperative, No Acute Distress Lungs: Normal Respiratory Effort, Crackles (fine crackle to bases, improved). No: Wheezing Cardiovascular: Regular Rate, Regular Rhythm, No Murmurs GI/Abdominal Exam: Normal Bowel Sounds, Soft, Non-Tender, No Organomegaly, No Distention, No Abnormal Bruit, No Mass, Pelvis Stable Extremities: Normal Inspection, Normal Range of Motion, Non-Tender, No Pedal Edema, Normal Capillary Refill Neurological: No New Focal Deficit Psy/Mental Status: Alert, Normal Affect, Normal Mood - Problem List & Annotations (1) Pneumonia SNOMED Code(s): 857975801 Code(s): J18.9 - PNEUMONIA, UNSPECIFIED ORGANISM Status: Acute Current Visit: Yes Qualifiers: Pneumonia type: due to unspecified organism Laterality: bilateral Lung location: lower lobe of lung Qualified Code(s): J18.9 - Pneumonia, unspecified organism (2) Hypoxemia SNOMED Code(s): 954669147 Code(s): R09.02 - HYPOXEMIA Status: Acute Current Visit: Yes (3) Thrombocytopenia SNOMED Code(s): 208296842 Code(s): D69.6 - THROMBOCYTOPENIA, UNSPECIFIED Status: Acute Current Visit: Yes (4) Leukocytosis SNOMED Code(s): 030562149, 715306562 Code(s): D72.829 - ELEVATED WHITE BLOOD CELL COUNT, UNSPECIFIED Status: Acute Current Visit: No (5) Lymphoma SNOMED Code(s): 899187138 Code(s): C85.90 - NON-HODGKIN LYMPHOMA, UNSPECIFIED, UNSPECIFIED SITE Status: Chronic Current Visit: Yes Qualifiers: 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 (6) Arthritis SNOMED Code(s): 0104782 Code(s): M19.90 - UNSPECIFIED OSTEOARTHRITIS, UNSPECIFIED SITE Status: Chronic Current Visit: Yes - Problem List Review Problem List Initiated/Reviewed/Updated: Yes - My Orders Last 24 Hours: My Active Orders 03/05/17 13:19 Intake and Output [RC] Q12H Oxygen Therapy [RC] PRN Up ad Susie [RC] ASDIRECTED Vital Signs [RC] Q4H Albuterol [Proventil Neb Soln] 2.5 mg NEB Q2H PRN Ondansetron [Zofran] 4 mg IVPUSH Q4H PRN Resuscitation Status Routine 03/05/17 13:20 RT Aerosol Therapy [RC] ASDIRECTED 03/05/17 13:30 CULTURE SPUTUM + SMEAR [RM] Routine Blood Culture x2 Reflex Set [OM.PC] Stat 03/05/17 13:31 Sodium Chloride 0.9% [Saline Flush] 10 ml FLUSH ASDIRECTED PRN 03/05/17 13:46 CULTURE BLOOD [BC] Stat 03/05/17 13:54 CULTURE BLOOD [BC] Stat 03/05/17 18:00 Albuterol/Ipratropium [DuoNeb 3.0-0.5 MG/3 ML] 3 ml NEB Q6HRRT 03/05/17 20:30 Acetaminophen [Tylenol Extra Strength] 1,000 mg PO Q12H 03/05/17 21:00 Docusate Sodium [Colace] 100 mg PO BID Fish Oil/[place]-3 Fatty Acids [Fish Oil] 1 gm PO BEDTIME Melatonin 3 mg PO BEDTIME Patient's Own Medication [Ptom] 1 each CHEW BID 03/05/17 Dinner Regular Diet [DIET] 03/06/17 09:00 Azithromycin [Zithromax] 250 mg PO Q24H Folic Acid 1 mg PO DAILY Multivitamins w-Iron/Ca/FA/Min [Thera M Plus] 1 tab PO DAILY Omeprazole 20 mg PO DAILY traMADol [Ultram] 50 mg PO BID 03/06/17 12:45 cefTRIAXone [Rocephin in Dextrose,Iso-Osm 1 GM/50 ML] 1 gm Premix Bag 1 bag IV Q24H 03/07/17 05:11 BASIC METABOLIC PANEL,BMP [CHEM] AM CBC WITH AUTO DIFF [HEME] AM 03/07/17 08:30 Ferrous Sulfate 325 mg PO TuThSa@0830 03/08/17 05:11 BASIC METABOLIC PANEL,BMP [CHEM] AM CBC WITH AUTO DIFF [HEME] AM - Plan Plan:: This 86 year old female admitted with hypoxia and community acquired pneumonia 1. CAP: Improving, continue Rocephin and Azithromycin, leukocytosis resolved, 6000 today. Neupogen injection and Prednisone therapy after chemotherapy. BC neg x 1 day. Repeat labwork in am. Oxygen and Duonebs PRN. 2. Arthritis: Continue Tylenol and Tramadol. 3. Thrombocytopenia: 36,000 this morning, continue to monitor closely. Continues to deny bleeding and no petechiea noted. VTE prophylaxis: SCDs for now, monitor platelets closely. Dispo: 2-3 days pending improvement.
[2017-03-06] MEDS: [UNRECOGNIZED DRUG - OTHER] CHEW SCH ×2 (11:29→20:14)
[2017-03-06] MEDS: cefTRIAXone 1 GM in Premix Bag 1 BAG IV SCH (12:19)
[2017-03-06] MEDS ORDERED: Morphine 2 MG/ML Syringe IVPUSH ONE (19:19)
[2017-03-06] MEDS: Metoprolol Succinate 50 MG Tab.ER PO SCH (19:41)
[2017-03-06] MEDS: Metoprolol Tartrate 5 MG/5 ML SDV IVPUSH PRN (19:41)
[2017-03-06] MEDS ORDERED: Diltiazem 25 MG/5 ML SDV IVPUSH ONE (19:57)
[2017-03-06] MEDS: Fish Oil/Omega-3 Fatty Acids 1 Gm Cap PO SCH (20:13)
[2017-03-06] MEDS: Melatonin 3 MG Tab PO SCH (20:13)
[2017-03-06] MEDS ORDERED: Diltiazem 120 MG Cap.CD PO ONE (20:15)
[2017-03-07 08:44] LABS: CHLORIDE,CL 104 mmol/L (98-110); SODIUM,NA 138 mmol/L (136-146)
[2017-03-07] MEDS: Diltiazem 180 MG Cap.CD PO SCH (08:51)
[2017-03-07] MEDS: Omeprazole 20 MG Cap.CR PO SCH (08:51)
[2017-03-07] MEDS: traMADol 50 MG Tab PO SCH ×2 (08:51→21:06)
[2017-03-07] MEDS: Docusate Sodium 100 MG Cap PO SCH ×2 (08:52→21:06)
[2017-03-07] MEDS: Acetaminophen 500 MG Tab PO SCH ×2 (08:52→19:48)
[2017-03-07] MEDS: Azithromycin 250 MG Tab PO SCH (08:52)
[2017-03-07] MEDS: Ferrous Sulfate 325 MG Tab PO SCH (08:53)
[2017-03-07] MEDS: Multivitamins with Iron/Calcium/Folic Acid/Minerals Tab PO SCH (08:53)
[2017-03-07] MEDS: Folic Acid 1 MG Tab PO SCH (08:54)
[2017-03-07] MEDS: Metoprolol Succinate 50 MG Tab.ER PO SCH (08:54)
[2017-03-07] MEDS: [UNRECOGNIZED DRUG - OTHER] CHEW SCH ×2 (08:56→21:11)
[2017-03-07] MEDS ORDERED: Magnesium Sulfate/Water 2 GM in Premix Bag 1 BAG IV ONE (11:31)
--- NOTE | 2017-03-07 11:32 | PCM.PN ---
- General Info Date of Service: 03/07/17 Admission Dx/Problem (Free Text): Admission Diagnosis/Problem Admission Diagnosis/Problem Pneumonia Subjective Update: Feeling a little better today. No real complaints. Had some increased in SOB and chest pain overnight, noted to be in Afib RVR HR 180s. Afib converted and is now feeling much better. Scant cough. Functional Status: Reports: Pain Controlled, Tolerating Diet, Ambulating, Urinating - Review of Systems General: Reports: No Symptoms. Denies: Fever, Weakness, Fatigue, Malaise HEENT: Reports: No Symptoms. Denies: Dysphasia, Headaches, Sore Throat Pulmonary: Reports: Shortness of Breath (intermittent with ambulation, which is near baseline.), Cough. Denies: Sputum, Hemoptysis Cardiovascular: Reports: No Symptoms. Denies: Chest Pain, Palpitations, Edema Gastrointestinal: Reports: No Symptoms. Denies: Abdominal Pain, Melena, Nausea , Vomiting 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: Reports: No Symptoms. Denies: Dysuria, Frequency, Burning, Hematuria Neurological: Reports: No Symptoms Psychiatric: Reports: No Symptoms - Patient Data Vitals - Most Recent: Last Vital Signs Temp 99.5 F 03/07/17 00:00 Pulse 95 03/07/17 08:54 Resp 20 03/07/17 00:00 BP 131/72 03/07/17 08:54 Pulse Ox 91 L 03/07/17 00:00 Weight - Most Recent: 40.823 kg I&O - Last 24 Hours: Intake & Output 03/06/17 03/07/17 03/07/17 22:59 06:59 14:59 Intake Total 1750 Output Total 650 Balance 1100 Lab Results Last 24 Hours: Laboratory Results - last 24 hr 03/07/17 03/07/17 03/07/17 Range/Units 05:05 05:11 08:05 WBC 0.70 L (4.0-11.0) K/uL RBC 2.69 L (4.30-5.90) M/uL Hgb 8.7 L (12.0-16.0) g/dL Hct 26.6 L (36.0-46.0) % MCV 98.9 H (80.0-98.0) fL MCH 32.3 H (27.0-32.0) pg MCHC 32.7 (31.0-37.0) g/dL RDW Std Deviation 60.6 (28.0-62.0) fl RDW Coeff of Monica 17 H (11.0-15.0) % Plt Count 20 L (150-400) K/uL MPV 11.20 (7.40-12.00) fL Add Manual Diff YES Neutrophils % (Manual) 39 L (48.0-80.0) % Band Neutrophils % 1 % Lymphocytes % (Manual) 27 (16.0-40.0) % Monocytes % (Manual) 3 (0.0-15.0) % Eosinophils % (Manual) 30 H (0.0-7.0) % Nucleated RBC % 0.0 /100WBC Absolute Seg Neuts 0.3 Band Neutrophils # 0 Lymphocytes # (Manual) 0.2 Monocytes # (Manual) 0 Eosinophils # (Manual) 0.2 Nucleated RBCs # 0 K/uL Sodium 138 (136-146) mmol/L Potassium 3.7 (3.5-5.1) mmol/L Chloride 104 (98-110) mmol/L Carbon Dioxide 29 (21-31) mmol/L BUN 11 (6.0-23.0) mg/dL Creatinine 0.6 (0.6-1.5) mg/dL Est Cr Clr Drug Dosing 41.77 mL/min Estimated GFR (MDRD) > 60.0 ml/min Glucose 91 (60-110) mg/dL Calcium 8.2 L (8.8-10.8) mg/dL Magnesium 1.6 (1.5-2.3) mEq/L Gilberto Results Last 24 Hours: Microbiology 03/06/17 18:20 Gram Stain - Preliminary Sputum - Expectorated 03/05/17 13:54 Aerobic Blood Culture - Preliminary Blood - Venous - Lab Draw NO GROWTH AFTER 1 DAY Anaerobic Blood Culture - Preliminary NO GROWTH AFTER 1 DAY 03/05/17 13:46 Aerobic Blood Culture - Preliminary Blood - Venous NO GROWTH AFTER 1 DAY Anaerobic Blood Culture - Preliminary NO GROWTH AFTER 1 DAY Med Orders - Current: Current Medications Acetaminophen (Tylenol Extra Strength) 1,000 mg PO Q12H [facility] Last Admin: 03/07/17 08:52 Dose: 1,000 mg Albuterol (Proventil Neb Soln) 2.5 mg NEB Q2H PRN PRN Reason: Shortness Of Breath/wheezing Albuterol/Ipratropium (Duoneb 3.0-0.5 Mg/3 Ml) 3 ml NEB Q6HRRT [facility] Last Admin: 03/06/17 23:36 Dose: 3 ml Azithromycin (Zithromax) 250 mg PO Q24H [facility] Last Admin: 03/07/17 08:52 Dose: 250 mg Diltiazem HCl (Cardizem Cd) 180 mg PO DAILY [facility] Last Admin: 03/07/17 08:51 Dose: 180 mg Docusate Sodium (Colace) 100 mg PO BID [facility] Last Admin: 03/07/17 08:52 Dose: 100 mg Ferrous Sulfate (Ferrous Sulfate) 325 mg PO TuThSa@0830 [facility] Last Admin: 03/07/17 08:53 Dose: 325 mg Fish Oil (Fish Oil) 1 gm PO BEDTIME [facility] Last Admin: 03/06/17 20:13 Dose: 1 gm Folic Acid (Folic Acid) 1 mg PO DAILY [facility] Last Admin: 03/07/17 08:54 Dose: 1 mg Ceftriaxone Sodium/Dextrose 1 (gm/ Premix) 50 mls @ 100 mls/hr IV Q24H [facility] Last Admin: 03/06/17 12:19 Dose: 100 mls/hr Magnesium Sulfate 2 gm/ Premix 50 mls @ 50 mls/hr IV ONETIME ONE Stop: 03/07/17 12:30 Melatonin (Melatonin) 3 mg PO BEDTIME [facility] Last Admin: 03/06/17 20:13 Dose: 3 mg Metoprolol Succinate (Toprol Xl) 50 mg PO DAILY [facility] Last Admin: 03/07/17 08:54 Dose: 50 mg Metoprolol Tartrate (Lopressor) 5 mg IVPUSH Q3H PRN PRN Reason: Arrhythmia Last Admin: 03/06/17 19:41 Dose: 5 mg Multivitamins/Minerals (Thera M Plus) 1 tab PO DAILY [facility] Last Admin: 03/07/17 08:53 Dose: 1 tab Omeprazole (Omeprazole) 20 mg PO DAILY [facility] Last Admin: 03/07/17 08:51 Dose: 20 mg Ondansetron HCl (Zofran) 4 mg IVPUSH Q4H PRN PRN Reason: Nausea Ptom Calcium Adult (Gummies 500mg) 1 each CHEW BID [facility] Last Admin: 03/07/17 08:56 Dose: 1 each Potassium Chloride (Klor-Con M20) 40 meq PO ONETIME ONE Stop: 03/07/17 11:32 Sodium Chloride (Saline Flush) 10 ml FLUSH ASDIRECTED PRN PRN Reason: flush Tramadol HCl (Ultram) 50 mg PO BID [facility] Last Admin: 03/07/17 08:51 Dose: 50 mg Discontinued Medications Albuterol/Ipratropium (Duoneb 3.0-0.5 Mg/3 Ml) 3 ml NEB ONETIME ONE Stop: 03/05/17 10:24 Last Admin: 03/05/17 10:31 Dose: 3 ml Azithromycin (Zithromax) 500 mg PO Q24H [facility] Last Admin: 03/05/17 12:15 Dose: 500 mg Diltiazem HCl (Diltiazem) 10 mg IVPUSH ONETIME ONE Stop: 03/06/17 19:58 Last Admin: 03/06/17 20:12 Dose: 10 mg Diltiazem HCl (Cardizem Cd) 240 mg PO ONETIME ONE Stop: 03/06/17 20:16 Last Admin: 03/06/17 20:21 Dose: 240 mg Heparin Sodium (Porcine) (Heparin Sodium) 5,000 units SUBCUT Q12HR [facility] Sodium Chloride (Normal Saline) 1,000 mls @ 999 mls/hr IV STAT ONE Stop: 03/05/17 11:25 Last Admin: 03/05/17 10:58 Dose: 999 mls/hr Ceftriaxone Sodium/Dextrose 1 (gm/ Premix) 50 mls @ 100 mls/hr IV ONETIME ONE Stop: 03/05/17 12:18 Last Admin: 03/05/17 12:10 Dose: 100 mls/hr Morphine Sulfate (Morphine) 2 mg IVPUSH ONETIME ONE Stop: 03/06/17 19:20 Last Admin: 03/06/17 19:30 Dose: 2 mg Tramadol HCl (Ultram) 100 mg PO Q6H PRN PRN Reason: Pain Last Admin: 03/05/17 20:15 Dose: 100 mg - Exam Quality Assessment: Supplemental Oxygen General: Alert, Oriented, Cooperative, No Acute Distress Neck: Supple Lungs: Clear to Auscultation, Normal Respiratory Effort. No: Crackles, Wheezing Cardiovascular: Regular Rate, Regular Rhythm, No Murmurs. No: Irregular Rhythm GI/Abdominal Exam: Normal Bowel Sounds, Soft, Non-Tender, No Organomegaly, No Distention, No Abnormal Bruit, No Mass, Pelvis Stable Extremities: Normal Inspection, Normal Range of Motion, Non-Tender, No Pedal Edema, Normal Capillary Refill Skin: No: Rash Psy/Mental Status: Alert, Normal Affect, Normal Mood - Problem List & Annotations (1) Pneumonia SNOMED Code(s): 712865207 Code(s): J18.9 - PNEUMONIA, UNSPECIFIED ORGANISM Status: Acute Current Visit: Yes Qualifiers: Pneumonia type: due to unspecified organism Laterality: bilateral Lung location: lower lobe of lung Qualified Code(s): J18.9 - Pneumonia, unspecified organism (2) Hypoxemia SNOMED Code(s): 549009651 Code(s): R09.02 - HYPOXEMIA Status: Acute Current Visit: Yes (3) Thrombocytopenia SNOMED Code(s): 989303054 Code(s): D69.6 - THROMBOCYTOPENIA, UNSPECIFIED Status: Acute Current Visit: Yes (4) Leukocytosis SNOMED Code(s): 331955437, 737484183 Code(s): D72.829 - ELEVATED WHITE BLOOD CELL COUNT, UNSPECIFIED Status: Acute Current Visit: No (5) Lymphoma SNOMED Code(s): 055435062 Code(s): C85.90 - NON-HODGKIN LYMPHOMA, UNSPECIFIED, UNSPECIFIED SITE Status: Chronic Current Visit: Yes Qualifiers: 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 (6) Arthritis SNOMED Code(s): 0151126 Code(s): M19.90 - UNSPECIFIED OSTEOARTHRITIS, UNSPECIFIED SITE Status: Chronic Current Visit: Yes - Problem List Review Problem List Initiated/Reviewed/Updated: Yes - My Orders Last 24 Hours: My Active Orders 03/06/17 12:45 cefTRIAXone [Rocephin in Dextrose,Iso-Osm 1 GM/50 ML] 1 gm Premix Bag 1 bag IV Q24H 03/06/17 18:20 CULTURE SPUTUM + SMEAR [RM] Routine 03/07/17 08:30 Ferrous Sulfate 325 mg PO TuThSa@0830 03/07/17 08:47 Communication Order [RC] ROUTINE 03/07/17 11:31 Magnesium Sulfate/Water [Magnesium Sulfate 2 GM in Water 50 ML] 2 gm Premix Bag 1 bag IV ONETIME Potassium Chloride [Klor-Con M20] 40 meq PO ONETIME ONE 03/07/17 Breakfast Neutropenic [DIET] 03/08/17 05:11 BASIC METABOLIC PANEL,BMP [CHEM] AM CBC WITH AUTO DIFF [HEME] AM - Plan Plan:: This 86 year old female admitted with hypoxia and community acquired pneumonia 1. CAP: Improving, continue Rocephin and Azithromycin. Oxygen and Duonebs PRN. BC remain negative. Afebrile, monitor closely for any fevers due to neutropenia. 2. Pancytopenia: Neutropenic. Placed on precautions, ANC approx 300. Platelets 20,[address] Ge regarding transfusion threshold. Will order Platelets and RBCs today to be on hold for possible transfusion due to trends. Hgb 8.7 today. 3. Arthritis: Continue Tylenol and Tramadol. VTE prophylaxis: SCDs Dispo: 2-3 days pending improvement. Spoke with patient's PCP, Dr Evans regarding admission.
[2017-03-07] MEDS ORDERED: Potassium Chloride 20 MEQ Tab.ER PO ONE (11:50)
[2017-03-07] MEDS: Albuterol/Ipratropium 3.0-0.5 MG/3 ML Neb Soln NEB SCH ×3 (12:01→23:07)
[2017-03-07] MEDS: cefTRIAXone 1 GM in Premix Bag 1 BAG IV SCH (13:08)
[2017-03-07] MEDS: Fish Oil/Omega-3 Fatty Acids 1 Gm Cap PO SCH (21:07)
[2017-03-07] MEDS: Melatonin 3 MG Tab PO SCH (21:08)
[2017-03-08] MEDS: Metoprolol Tartrate 5 MG/5 ML SDV IVPUSH PRN ×2 (00:38→01:27)
[2017-03-08] MEDS: LORazepam 2 MG/ML MDV IVPUSH PRN ×3 (00:57→04:23)
[2017-03-08] MEDS: QUEtiapine 100 MG Tab PO SCH ×2 (01:31→01:57)
[2017-03-08 06:03] LABS: CHLORIDE,CL 103 mmol/L (98-110); SODIUM,NA 136 mmol/L (136-146)
[2017-03-08] MEDS: Albuterol/Ipratropium 3.0-0.5 MG/3 ML Neb Soln NEB SCH ×3 (06:22→18:25)
--- NOTE | 2017-03-08 08:34 | PCM.PN ---
- General Info Date of Service: 03/08/17 Admission Dx/Problem (Free Text): Admission Diagnosis/Problem Admission Diagnosis/Problem Pneumonia Subjective Update: Unable to obtain ROS today, patient is delirious and will not talk to staff. She also has been very angry with Daughter Brissa and son Ronal. - Patient Data Vitals - Most Recent: Last Vital Signs Temp 98.8 F 03/08/17 03:51 Pulse 95 03/08/17 03:51 Resp 19 03/08/17 03:51 BP 126/91 H 03/08/17 03:51 Pulse Ox 93 L 03/08/17 03:51 Weight - Most Recent: 40.823 kg I&O - Last 24 Hours: Intake & Output 03/07/17 03/08/17 03/08/17 22:59 06:59 14:59 Intake Total 330 450 Output Total 500 400 Balance -170 50 Lab Results Last 24 Hours: Laboratory Results - last 24 hr 03/07/17 03/07/17 03/07/17 Range/Units 05:05 05:11 08:05 WBC 0.70 L (4.0-11.0) K/uL RBC 2.69 L (4.30-5.90) M/uL Hgb 8.7 L (12.0-16.0) g/dL Hct 26.6 L (36.0-46.0) % MCV 98.9 H (80.0-98.0) fL MCH 32.3 H (27.0-32.0) pg MCHC 32.7 (31.0-37.0) g/dL RDW Std Deviation 60.6 (28.0-62.0) fl RDW Coeff of Monica 17 H (11.0-15.0) % Plt Count 20 L (150-400) K/uL MPV 11.20 (7.40-12.00) fL Add Manual Diff YES Neutrophils % (Manual) 39 L (48.0-80.0) % Band Neutrophils % 1 % Lymphocytes % (Manual) 27 (16.0-40.0) % Monocytes % (Manual) 3 (0.0-15.0) % Eosinophils % (Manual) 30 H (0.0-7.0) % Basophils % (Manual) (0.0-1.5) % Nucleated RBC % 0.0 /100WBC Absolute Seg Neuts 0.3 Band Neutrophils # 0 Lymphocytes # (Manual) 0.2 Monocytes # (Manual) 0 Eosinophils # (Manual) 0.2 Basophils # (Manual) Nucleated RBCs # 0 K/uL Sodium 138 (136-146) mmol/L Potassium 3.7 (3.5-5.1) mmol/L Chloride 104 (98-110) mmol/L Carbon Dioxide 29 (21-31) mmol/L BUN 11 (6.0-23.0) mg/dL Creatinine 0.6 (0.6-1.5) mg/dL Est Cr Clr Drug Dosing 41.77 mL/min Estimated GFR (MDRD) > 60.0 ml/min Glucose 91 (60-110) mg/dL Calcium 8.2 L (8.8-10.8) mg/dL Magnesium 1.6 (1.5-2.3) mEq/L Blood Type Antibody Screen Crossmatch 03/07/17 03/08/17 03/08/17 Range/Units 13:46 05:20 05:20 WBC 0.43 L (4.0-11.0) K/uL RBC 2.65 L (4.30-5.90) M/uL Hgb 8.7 L (12.0-16.0) g/dL Hct 26.1 L (36.0-46.0) % MCV 98.5 H (80.0-98.0) fL MCH 32.8 H (27.0-32.0) pg MCHC 33.3 (31.0-37.0) g/dL RDW Std Deviation 60.1 (28.0-62.0) fl RDW Coeff of Monica 17 H (11.0-15.0) % Plt Count 30 L (150-400) K/uL MPV 12.30 H (7.40-12.00) fL Add Manual Diff YES Neutrophils % (Manual) 23 L (48.0-80.0) % Band Neutrophils % 5 % Lymphocytes % (Manual) 35 (16.0-40.0) % Monocytes % (Manual) 10 (0.0-15.0) % Eosinophils % (Manual) 26 H (0.0-7.0) % Basophils % (Manual) 1 (0.0-1.5) % Nucleated RBC % 0.0 /100WBC Absolute Seg Neuts 0.1 Band Neutrophils # 0 Lymphocytes # (Manual) 0.2 Monocytes # (Manual) 0 Eosinophils # (Manual) 0.1 Basophils # (Manual) 0 Nucleated RBCs # 0 K/uL Sodium 136 (136-146) mmol/L Potassium 4.5 (3.5-5.1) mmol/L Chloride 103 (98-110) mmol/L Carbon Dioxide 27 (21-31) mmol/L BUN 9 (6.0-23.0) mg/dL Creatinine 0.6 (0.6-1.5) mg/dL Est Cr Clr Drug Dosing 41.77 mL/min Estimated GFR (MDRD) > 60.0 ml/min Glucose 101 (60-110) mg/dL Calcium 8.2 L (8.8-10.8) mg/dL Magnesium (1.5-2.3) mEq/L Blood Type O POSITIVE Antibody Screen NEGATIVE Crossmatch See Detail 03/08/17 Range/Units 05:20 WBC (4.0-11.0) K/uL RBC (4.30-5.90) M/uL Hgb (12.0-16.0) g/dL Hct (36.0-46.0) % MCV (80.0-98.0) fL MCH (27.0-32.0) pg MCHC (31.0-37.0) g/dL RDW Std Deviation (28.0-62.0) fl RDW Coeff of Monica (11.0-15.0) % Plt Count (150-400) K/uL MPV (7.40-12.00) fL Add Manual Diff Neutrophils % (Manual) (48.0-80.0) % Band Neutrophils % % Lymphocytes % (Manual) (16.0-40.0) % Monocytes % (Manual) (0.0-15.0) % Eosinophils % (Manual) (0.0-7.0) % Basophils % (Manual) (0.0-1.5) % Nucleated RBC % /100WBC Absolute Seg Neuts Band Neutrophils # Lymphocytes # (Manual) Monocytes # (Manual) Eosinophils # (Manual) Basophils # (Manual) Nucleated RBCs # K/uL Sodium (136-146) mmol/L Potassium (3.5-5.1) mmol/L Chloride (98-110) mmol/L Carbon Dioxide (21-31) mmol/L BUN (6.0-23.0) mg/dL Creatinine (0.6-1.5) mg/dL Est Cr Clr Drug Dosing mL/min Estimated GFR (MDRD) ml/min Glucose (60-110) mg/dL Calcium (8.8-10.8) mg/dL Magnesium 2.0 (1.5-2.3) mEq/L Blood Type Antibody Screen Crossmatch Gilberto Results Last 24 Hours: Microbiology 03/06/17 18:20 Gram Stain - Final Sputum - Expectorated Sputum Culture - Final Escherichia Coli YEAST Normal Respiratory Rochelle 03/05/17 13:54 Aerobic Blood Culture - Preliminary Blood - Venous - Lab Draw NO GROWTH AFTER 2 DAYS Anaerobic Blood Culture - Preliminary NO GROWTH AFTER 2 DAYS 03/05/17 13:46 Aerobic Blood Culture - Preliminary Blood - Venous NO GROWTH AFTER 2 DAYS Anaerobic Blood Culture - Preliminary NO GROWTH AFTER 2 DAYS Med Orders - Current: Current Medications Acetaminophen (Tylenol Extra Strength) 1,000 mg PO Q12H [facility] Last Admin: 03/07/17 19:48 Dose: 1,000 mg Albuterol (Proventil Neb Soln) 2.5 mg NEB Q2H PRN PRN Reason: Shortness Of Breath/wheezing Albuterol/Ipratropium (Duoneb 3.0-0.5 Mg/3 Ml) 3 ml NEB Q6HRRT [facility] Last Admin: 03/08/17 06:22 Dose: 3 ml Azithromycin (Zithromax) 250 mg PO Q24H [facility] Last Admin: 03/07/17 08:52 Dose: 250 mg Diltiazem HCl (Cardizem Cd) 180 mg PO DAILY [facility] Last Admin: 03/07/17 08:51 Dose: 180 mg Docusate Sodium (Colace) 100 mg PO BID [facility] Last Admin: 03/07/17 21:06 Dose: 100 mg Ferrous Sulfate (Ferrous Sulfate) 325 mg PO TuThSa@0830 [facility] Last Admin: 03/07/17 08:53 Dose: 325 mg Fish Oil (Fish Oil) 1 gm PO BEDTIME [facility] Last Admin: 03/07/17 21:07 Dose: 1 gm Folic Acid (Folic Acid) 1 mg PO DAILY [facility] Last Admin: 03/07/17 08:54 Dose: 1 mg Ceftriaxone Sodium/Dextrose 1 (gm/ Premix) 50 mls @ 100 mls/hr IV Q24H [facility] Last Admin: 03/07/17 13:08 Dose: 100 mls/hr Lorazepam (Ativan) 0.5 mg IVPUSH Q3H PRN PRN Reason: Agitation Last Admin: 03/08/17 04:23 Dose: 0.5 mg Melatonin (Melatonin) 3 mg PO BEDTIME [facility] Last Admin: 03/07/17 21:08 Dose: 3 mg Metoprolol Succinate (Toprol Xl) 50 mg PO DAILY [facility] Last Admin: 03/07/17 08:54 Dose: 50 mg Metoprolol Tartrate (Lopressor) 5 mg IVPUSH Q3H PRN PRN Reason: Arrhythmia Last Admin: 03/08/17 01:27 Dose: 5 mg Multivitamins/Minerals (Thera M Plus) 1 tab PO DAILY [facility] Last Admin: 03/07/17 08:53 Dose: 1 tab Omeprazole (Omeprazole) 20 mg PO DAILY [facility] Last Admin: 03/07/17 08:51 Dose: 20 mg Ondansetron HCl (Zofran) 4 mg IVPUSH Q4H PRN PRN Reason: Nausea Ptom Calcium Adult (Gummies 500mg) 1 each CHEW BID [facility] Last Admin: 03/07/17 21:11 Dose: 1 each Sodium Chloride (Saline Flush) 10 ml FLUSH ASDIRECTED PRN PRN Reason: flush Tramadol HCl (Ultram) 50 mg PO BID [facility] Last Admin: 03/07/17 21:06 Dose: 50 mg Discontinued Medications Albuterol/Ipratropium (Duoneb 3.0-0.5 Mg/3 Ml) 3 ml NEB ONETIME ONE Stop: 03/05/17 10:24 Last Admin: 03/05/17 10:31 Dose: 3 ml Azithromycin (Zithromax) 500 mg PO Q24H [facility] Last Admin: 03/05/17 12:15 Dose: 500 mg Diltiazem HCl (Diltiazem) 10 mg IVPUSH ONETIME ONE Stop: 03/06/17 19:58 Last Admin: 03/06/17 20:12 Dose: 10 mg Diltiazem HCl (Cardizem Cd) 240 mg PO ONETIME ONE Stop: 03/06/17 20:16 Last Admin: 03/06/17 20:21 Dose: 240 mg Heparin Sodium (Porcine) (Heparin Sodium) 5,000 units SUBCUT Q12HR [facility] Sodium Chloride (Normal Saline) 1,000 mls @ 999 mls/hr IV STAT ONE Stop: 03/05/17 11:25 Last Admin: 03/05/17 10:58 Dose: 999 mls/hr Ceftriaxone Sodium/Dextrose 1 (gm/ Premix) 50 mls @ 100 mls/hr IV ONETIME ONE Stop: 03/05/17 12:18 Last Admin: 03/05/17 12:10 Dose: 100 mls/hr Magnesium Sulfate 2 gm/ Premix 50 mls @ 50 mls/hr IV ONETIME ONE Stop: 03/07/17 12:30 Last Admin: 03/07/17 11:50 Dose: 50 mls/hr Morphine Sulfate (Morphine) 2 mg IVPUSH ONETIME ONE Stop: 03/06/17 19:20 Last Admin: 03/06/17 19:30 Dose: 2 mg Potassium Chloride (Klor-Con M20) 40 meq PO ONETIME ONE Stop: 03/07/17 11:51 Last Admin: 03/07/17 11:49 Dose: 40 meq Quetiapine Fumarate (Seroquel) 100 mg PO BEDTIME [facility] Last Admin: 03/08/17 01:57 Dose: Not Given Tramadol HCl (Ultram) 100 mg PO Q6H PRN PRN Reason: Pain Last Admin: 03/05/17 20:15 Dose: 100 mg - Exam Quality Assessment: Supplemental Oxygen, DVT Prophylaxis General: Alert, No Acute Distress. No: Oriented, Cooperative HEENT: Pupils Equal, Pupils Reactive Neck: Supple Lungs: Clear to Auscultation, Normal Respiratory Effort Cardiovascular: Tachycardia (intermittently with agitation) Extremities: Normal Inspection, Normal Range of Motion, Non-Tender, No Pedal Edema, Normal Capillary Refill Skin: Warm, Dry, Other (abrasion to R albow, bandaid in place no erythema.). No : Rash Psy/Mental Status: Agitated, Hallucinations - Problem List & Annotations (1) Pneumonia SNOMED Code(s): 008069231 Code(s): J18.9 - PNEUMONIA, UNSPECIFIED ORGANISM Status: Acute Current Visit: Yes Qualifiers: Pneumonia type: due to unspecified organism Laterality: bilateral Lung location: lower lobe of lung Qualified Code(s): J18.9 - Pneumonia, unspecified organism (2) Delirium SNOMED Code(s): 7636211 Code(s): R41.0 - DISORIENTATION, UNSPECIFIED Status: Acute Current Visit : Yes (3) Hypoxemia SNOMED Code(s): 208647290 Code(s): R09.02 - HYPOXEMIA Status: Acute Current Visit: Yes (4) Thrombocytopenia SNOMED Code(s): 801820183 Code(s): D69.6 - THROMBOCYTOPENIA, UNSPECIFIED Status: Acute Current Visit: Yes (5) Leukocytosis SNOMED Code(s): 542018266, 402394589 Code(s): D72.829 - ELEVATED WHITE BLOOD CELL COUNT, UNSPECIFIED Status: Acute Current Visit: No (6) Lymphoma SNOMED Code(s): 445449969 Code(s): C85.90 - NON-HODGKIN LYMPHOMA, UNSPECIFIED, UNSPECIFIED SITE Status: Chronic Current Visit: Yes Qualifiers: 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 (7) Arthritis SNOMED Code(s): 0609694 Code(s): M19.90 - UNSPECIFIED OSTEOARTHRITIS, UNSPECIFIED SITE Status: Chronic Current Visit: Yes - Problem List Review Problem List Initiated/Reviewed/Updated: Yes - My Orders Last 24 Hours: My Active Orders 03/07/17 08:30 Ferrous Sulfate 325 mg PO TuThSa@0830 03/07/17 08:47 Communication Order [RC] ROUTINE 03/07/17 13:46 PLATELETS APH [BBK] Routine RED BLOOD CELLS LP [BBK] Routine TYPE AND SCREEN [BBK] Routine 03/07/17 14:15 Communication Order [RC] ROUTINE 03/09/17 05:00 MAGNESIUM [CHEM] DAILY 03/10/17 05:00 MAGNESIUM [CHEM] DAILY - Plan Plan:: This 86 year old female admitted with hypoxia and community acquired pneumonia 1. CAP: Improving, continue Rocephin and Azithromycin. Sputum culture E. Coli, sensitive to treatment. Will continue with this. Oxygen and Duonebs PRN. BC remain negative. Afebrile, monitor closely for any fevers due to neutropenia. 2. Pancytopenia: Neutropenic. Placed on precautions, ANC approx 100. Platelets 30,000 today. Platelets and RBCs on hold for now. Hgb 8.7. 3. Delirium: Likely secondary to lack of sleep and illness. Ativan given overnight with worsening agitation. Ativan discontinued this am, Haldol 1 mg given. This has calmed her somewhat, not as agitated. Will orient frequently, keep shades open during day and bundle care at night to promote sleep and routine. 4. Afib: Noted on telemetry, RVR 8. Has since converted to SR. Was given Metoprolol and Diltiazem. magnesium and Potassium supplemented. Today she has not taken any medications, will monitor HR. Metoprolol IV ordered PRN. 5. Arthritis: Continue Tylenol and Tramadol. VTE prophylaxis: SCDs due to high bleeding risk. Dispo: 2-3 days pending improvement.
[2017-03-08] MEDS ORDERED: Haloperidol Lactate 5 MG/ML SDV IM ONE (09:56)
[2017-03-08] MEDS ORDERED: Haloperidol Lactate 5 MG/ML SDV IM PRN (11:21)
[2017-03-08] MEDS ORDERED: Sodium Chloride 0.9% 1,000 ML IV SCH (11:30)
[2017-03-08] MEDS: cefTRIAXone 1 GM in Premix Bag 1 BAG IV SCH (12:36)
[2017-03-08] MEDS: Diltiazem 180 MG Cap.CD PO SCH (12:41)
[2017-03-08] MEDS: Acetaminophen 500 MG Tab PO SCH ×2 (12:41→21:41)
[2017-03-08] MEDS: Docusate Sodium 100 MG Cap PO SCH ×2 (12:41→21:42)
[2017-03-08] MEDS: Omeprazole 20 MG Cap.CR PO SCH (12:42)
[2017-03-08] MEDS: traMADol 50 MG Tab PO SCH ×2 (12:42→21:43)
[2017-03-08] MEDS: Azithromycin 250 MG Tab PO SCH (12:42)
[2017-03-08] MEDS: Folic Acid 1 MG Tab PO SCH (12:42)
[2017-03-08] MEDS: Multivitamins with Iron/Calcium/Folic Acid/Minerals Tab PO SCH (12:42)
[2017-03-08] MEDS: [UNRECOGNIZED DRUG - OTHER] CHEW SCH ×2 (12:42→21:47)
[2017-03-08] MEDS: Metoprolol Succinate 50 MG Tab.ER PO SCH (12:42)
[2017-03-08] MEDS ORDERED: Mirtazapine 15 MG Tab PO SCH (21:00)
[2017-03-08] MEDS: Melatonin 3 MG Tab PO SCH (21:43)
[2017-03-08] MEDS: Fish Oil/Omega-3 Fatty Acids 1 Gm Cap PO SCH (21:46)
[2017-03-09] MEDS: Albuterol/Ipratropium 3.0-0.5 MG/3 ML Neb Soln NEB SCH ×3 (00:13→12:02)
[2017-03-09 06:09] LABS: CHLORIDE,CL 110 mmol/L (98-110); SODIUM,NA 141 mmol/L (136-146)
--- NOTE | 2017-03-09 08:36 | PCM.PN ---
- Review of Systems Systems Review Comment:: feeling better, orientated to place and person, and day of week. mood is more stable. - Patient Data Vitals - Most Recent: Last Vital Signs Temp 37.2 C 03/09/17 00:15 Pulse 107 H 03/09/17 00:15 Resp 20 03/09/17 00:15 BP 128/89 03/09/17 00:15 Pulse Ox 94 L 03/09/17 00:15 Weight - Most Recent: 40.823 kg I&O - Last 24 Hours: Intake & Output 03/08/17 03/09/17 03/09/17 22:59 06:59 14:59 Intake Total 200 1600 Output Total 578 550 Balance -378 1050 Lab Results Last 24 Hours: Laboratory Results - last 24 hr 03/07/17 03/09/17 03/09/17 Range/Units 13:46 05:26 05:26 WBC 2.37 L (4.0-11.0) K/uL RBC 2.62 L (4.30-5.90) M/uL Hgb 8.5 L (12.0-16.0) g/dL Hct 26.0 L (36.0-46.0) % MCV 99.2 H (80.0-98.0) fL MCH 32.4 H (27.0-32.0) pg MCHC 32.7 (31.0-37.0) g/dL RDW Std Deviation 60.2 (28.0-62.0) fl RDW Coeff of Monica 17 H (11.0-15.0) % Plt Count 41 L (150-400) K/uL MPV 10.80 (7.40-12.00) fL Add Manual Diff YES Neutrophils % (Manual) 58 (48.0-80.0) % Band Neutrophils % 6 % Lymphocytes % (Manual) 12 L (16.0-40.0) % Monocytes % (Manual) 10 (0.0-15.0) % Eosinophils % (Manual) 14 H (0.0-7.0) % Nucleated RBC % 0.0 /100WBC Absolute Seg Neuts 1.4 Band Neutrophils # 0.1 Lymphocytes # (Manual) 0.3 Monocytes # (Manual) 0.2 Eosinophils # (Manual) 0.3 Nucleated RBCs # 0 K/uL Sodium 141 (136-146) mmol/L Potassium 3.6 (3.5-5.1) mmol/L Chloride 110 (98-110) mmol/L Carbon Dioxide 26 (21-31) mmol/L BUN 6 (6.0-23.0) mg/dL Creatinine 0.6 (0.6-1.5) mg/dL Est Cr Clr Drug Dosing 41.77 mL/min Estimated GFR (MDRD) > 60.0 ml/min Glucose 86 (60-110) mg/dL Calcium 7.7 L (8.8-10.8) mg/dL Magnesium 1.5 (1.5-2.3) mEq/L Blood Type O POSITIVE Antibody Screen NEGATIVE Crossmatch See Detail Gilberto Results Last 24 Hours: Microbiology 03/05/17 13:54 Aerobic Blood Culture - Preliminary Blood - Venous - Lab Draw NO GROWTH AFTER 3 DAYS Anaerobic Blood Culture - Preliminary NO GROWTH AFTER 3 DAYS 03/05/17 13:46 Aerobic Blood Culture - Preliminary Blood - Venous NO GROWTH AFTER 3 DAYS Anaerobic Blood Culture - Preliminary NO GROWTH AFTER 3 DAYS 03/06/17 18:20 Gram Stain - Final Sputum - Expectorated Sputum Culture - Final Escherichia Coli YEAST Normal Respiratory Rochelle Med Orders - Current: Current Medications Acetaminophen (Tylenol Extra Strength) 1,000 mg PO Q12H [facility] Last Admin: 03/08/17 21:41 Dose: 1,000 mg Albuterol (Proventil Neb Soln) 2.5 mg NEB Q2H PRN PRN Reason: Shortness Of Breath/wheezing Albuterol/Ipratropium (Duoneb 3.0-0.5 Mg/3 Ml) 3 ml NEB Q6HRRT [facility] Last Admin: 03/09/17 06:00 Dose: 3 ml Azithromycin (Zithromax) 250 mg PO Q24H [facility] Last Admin: 03/08/17 12:42 Dose: Not Given Diltiazem HCl (Cardizem Cd) 180 mg PO DAILY [facility] Last Admin: 03/08/17 12:41 Dose: Not Given Docusate Sodium (Colace) 100 mg PO BID [facility] Last Admin: 03/08/17 21:42 Dose: 100 mg Ferrous Sulfate (Ferrous Sulfate) 325 mg PO TuThSa@0830 [facility] Last Admin: 03/07/17 08:53 Dose: 325 mg Fish Oil (Fish Oil) 1 gm PO BEDTIME [facility] Last Admin: 03/08/17 21:46 Dose: 1 gm Folic Acid (Folic Acid) 1 mg PO DAILY [facility] Last Admin: 03/08/17 12:42 Dose: Not Given Haloperidol Lactate (Haldol) 1 mg IM Q8H PRN PRN Reason: Agitation Last Admin: 03/08/17 21:54 Dose: 1 mg Ceftriaxone Sodium/Dextrose 1 (gm/ Premix) 50 mls @ 100 mls/hr IV Q24H [facility] Last Admin: 03/08/17 12:36 Dose: 100 mls/hr Melatonin (Melatonin) 3 mg PO BEDTIME [facility] Last Admin: 03/08/17 21:43 Dose: 3 mg Metoprolol Succinate (Toprol Xl) 50 mg PO DAILY [facility] Last Admin: 03/08/17 12:42 Dose: Not Given Metoprolol Tartrate (Lopressor) 5 mg IVPUSH Q3H PRN PRN Reason: Arrhythmia Last Admin: 03/08/17 01:27 Dose: 5 mg Mirtazapine (Remeron) 15 mg PO BEDTIME [facility] Last Admin: 03/08/17 21:43 Dose: 15 mg Multivitamins/Minerals (Thera M Plus) 1 tab PO DAILY [facility] Last Admin: 03/08/17 12:42 Dose: Not Given Omeprazole (Omeprazole) 20 mg PO DAILY [facility] Last Admin: 03/08/17 12:42 Dose: Not Given Ondansetron HCl (Zofran) 4 mg IVPUSH Q4H PRN PRN Reason: Nausea Ptom Calcium Adult (Gummies 500mg) 1 each CHEW BID [facility] Last Admin: 03/08/17 21:47 Dose: Not Given Sodium Chloride (Saline Flush) 10 ml FLUSH ASDIRECTED PRN PRN Reason: flush Tramadol HCl (Ultram) 50 mg PO BID [facility] Last Admin: 03/08/17 21:43 Dose: 50 mg Discontinued Medications Albuterol/Ipratropium (Duoneb 3.0-0.5 Mg/3 Ml) 3 ml NEB ONETIME ONE Stop: 03/05/17 10:24 Last Admin: 03/05/17 10:31 Dose: 3 ml Azithromycin (Zithromax) 500 mg PO Q24H [facility] Last Admin: 03/05/17 12:15 Dose: 500 mg Diltiazem HCl (Diltiazem) 10 mg IVPUSH ONETIME ONE Stop: 03/06/17 19:58 Last Admin: 03/06/17 20:12 Dose: 10 mg Diltiazem HCl (Cardizem Cd) 240 mg PO ONETIME ONE Stop: 03/06/17 20:16 Last Admin: 03/06/17 20:21 Dose: 240 mg Haloperidol Lactate (Haldol) 1 mg IM ONETIME ONE Stop: 03/08/17 09:57 Last Admin: 03/08/17 10:08 Dose: 1 mg Heparin Sodium (Porcine) (Heparin Sodium) 5,000 units SUBCUT Q12HR [facility] Sodium Chloride (Normal Saline) 1,000 mls @ 999 mls/hr IV STAT ONE Stop: 03/05/17 11:25 Last Admin: 03/05/17 10:58 Dose: 999 mls/hr Ceftriaxone Sodium/Dextrose 1 (gm/ Premix) 50 mls @ 100 mls/hr IV ONETIME ONE Stop: 03/05/17 12:18 Last Admin: 03/05/17 12:10 Dose: 100 mls/hr Magnesium Sulfate 2 gm/ Premix 50 mls @ 50 mls/hr IV ONETIME ONE Stop: 03/07/17 12:30 Last Admin: 03/07/17 11:50 Dose: 50 mls/hr Sodium Chloride (Normal Saline) 1,000 mls @ 75 mls/hr IV ASDIRECTED [facility] Stop: 03/09/17 00:49 Last Admin: 03/08/17 12:36 Dose: 75 mls/hr Lorazepam (Ativan) 0.5 mg IVPUSH Q3H PRN PRN Reason: Agitation Last Admin: 03/08/17 04:23 Dose: 0.5 mg Morphine Sulfate (Morphine) 2 mg IVPUSH ONETIME ONE Stop: 03/06/17 19:20 Last Admin: 03/06/17 19:30 Dose: 2 mg Potassium Chloride (Klor-Con M20) 40 meq PO ONETIME ONE Stop: 03/07/17 11:51 Last Admin: 03/07/17 11:49 Dose: 40 meq Quetiapine Fumarate (Seroquel) 100 mg PO BEDTIME [facility] Last Admin: 03/08/17 01:57 Dose: Not Given Tramadol HCl (Ultram) 100 mg PO Q6H PRN PRN Reason: Pain Last Admin: 03/05/17 20:15 Dose: 100 mg - Exam General: Alert, Oriented Lungs: Clear to Auscultation, Normal Respiratory Effort Cardiovascular: Regular Rate, Regular Rhythm GI/Abdominal Exam: Non-Tender Extremities: Normal Inspection - Problem List Review Problem List Initiated/Reviewed/Updated: Yes - Plan Plan:: This 86 year old female admitted with hypoxia and community acquired pneumonia 1. Ecoli CAP: Improving, will continue Rocephin and azithromcyn 2. Pancytopenia: 2/2 to chemotherapy, thrombocytopenia improving 3. Delirium: improving 4. Afib: Noted on telemetry, RVR 03/07. Has since converted to SR. 5. Arthritis: Continue Tylenol and Tramadol. VTE prophylaxis: SCDs due to high bleeding risk. Dispo: pending improvement in delerium
[2017-03-09] MEDS: Omeprazole 20 MG Cap.CR PO SCH (09:30)
[2017-03-09] MEDS: Diltiazem 180 MG Cap.CD PO SCH (09:30)
[2017-03-09] MEDS: Folic Acid 1 MG Tab PO SCH (09:30)
[2017-03-09] MEDS: Ferrous Sulfate 325 MG Tab PO SCH (09:31)
[2017-03-09] MEDS: traMADol 50 MG Tab PO SCH (09:31)
[2017-03-09] MEDS: Acetaminophen 500 MG Tab PO SCH (09:31)
[2017-03-09] MEDS: [UNRECOGNIZED DRUG - OTHER] CHEW SCH (09:32)
[2017-03-09] MEDS: Docusate Sodium 100 MG Cap PO SCH (09:33)
[2017-03-09] MEDS: Multivitamins with Iron/Calcium/Folic Acid/Minerals Tab PO SCH (09:33)
[2017-03-09] MEDS: Metoprolol Succinate 50 MG Tab.ER PO SCH (09:33)
[2017-03-09] MEDS: Azithromycin 250 MG Tab PO SCH (09:33)
--- NOTE | 2017-03-09 10:30 | PCM.DCSUM1 ---
Discharge Summary - Discharge Data Discharge Date: 03/09/17 Discharge Disposition: Home, Self-Care 01 Condition: Good - Patient Summary/Data Hospital Course: Hospital diagnosis E.coli Pneumonia 86 year old female with pmh of newly diagnosed B cell lymphoma and arthritis presented to the ED this morning with complaints of worsening shortness of breath. She was found to have a WBC 22,700, Hgb 10.6, Platelets 59,000. BUN 24, Cr 0.6. CXR revealed mild bibasilar atelectasis vs infiltrate with trace bilateral pleural effusions. She was treated for pneumonia with azithromcyin and Rocephin. Sputum cultures grew out E.coli. She did have one episoded of atrial fibrillation with RVR but was spotanously converted to normal sinus rhythm. She was started on metoprolol and diltiazem. She did have delerium which was treated with haldol. Today patient's delerium has much improved. She is walking the hallway with assistance. The family and patient is requesting discharge. She was discharged on oral levaquin based on sensitives of sputum culture. Patient was satting 84% on Room air but with 2 liters nasal canula she was satting 92%. Patient was discharged with home oxygen. - Patient Instructions Diet: Regular Diet as Tolerated Activity: As Tolerated - Discharge Plan Prescriptions/Med Rec: Diltiazem [Cardizem CD] 180 mg PO DAILY #30 cap.cd Levofloxacin [Levaquin] 500 mg PO Q24H #7 tablet Metoprolol Succinate [Toprol XL] 50 mg PO DAILY #30 tab.er Home Medications: Home Meds Methotrexate 15 mg PO WE@0900 11/03/13 [History] Omeprazole 20 mg PO ACBREAKFAST 11/03/13 [History] traMADol [Ultram] 50 mg PO QID PRN 11/03/13 [History] Calcium Phosphate Trib/Vit D3 [Calcium Adult Gummies] 500 mg CHEW BID 02/01/17 [ History] Docusate Sodium [Stool Softener] 100 mg PO BID 02/01/17 [History] Ferrous Sulfate [Iron] 325 mg PO TUTHSA@0900 02/01/17 [History] Fish Oil/[place]-3 Fatty Acids [Fish Oil 1,000 MG] 1 gm PO BEDTIME 02/01/17 [ History] Folic Acid 1 mg PO DAILY 02/01/17 [History] Multivitamin [Multivitamins] 1 tab PO DAILY 02/01/17 [History] Acetaminophen [Tylenol Arthritis] 1,300 mg PO BID 03/06/17 [History] Melatonin 3 mg PO BEDTIME 03/06/17 [History] Vit C/E/Zn/Coppr/Lutein/Zeaxan [Preservision Areds 2 Softgel] 1 cap PO DAILY [History] traMADol [Ultram] 50 mg PO BID 03/06/17 [History] Diltiazem [Cardizem CD] 180 mg PO DAILY #30 cap.cd 03/09/17 [Rx] Levofloxacin [Levaquin] 500 mg PO Q24H #7 tablet 03/09/17 [Rx] Metoprolol Succinate [Toprol XL] 50 mg PO DAILY #30 tab.er 03/09/17 [Rx] Patient Handouts: Metoprolol extended-release tablets, Levofloxacin tablets, Diltiazem tablets, Community-Acquired Pneumonia, Adult, [id number] Referrals: Buck Evans MD [Primary Care Provider] - 03/14/17 2:30 pm - Patient Data Vitals - Most Recent: Last Vital Signs Temp 37.2 C 03/09/17 08:00 Pulse 101 H 03/09/17 09:33 Resp 18 03/09/17 08:00 BP 189/108 H 03/09/17 09:33 Pulse Ox 92 L 03/09/17 08:00 Weight - Most Recent: 40.823 kg I&O - Last 24 hours: Intake & Output 03/08/17 03/09/17 03/09/17 22:59 06:59 14:59 Intake Total 200 1600 Output Total 578 550 Balance -378 1050 Lab Results - Last 24 hrs: Laboratory Results - last 24 hr 03/09/17 03/09/17 Range/Units 05:26 05:26 WBC 2.37 L (4.0-11.0) K/uL RBC 2.62 L (4.30-5.90) M/uL Hgb 8.5 L (12.0-16.0) g/dL Hct 26.0 L (36.0-46.0) % MCV 99.2 H (80.0-98.0) fL MCH 32.4 H (27.0-32.0) pg MCHC 32.7 (31.0-37.0) g/dL RDW Std Deviation 60.2 (28.0-62.0) fl RDW Coeff of Monica 17 H (11.0-15.0) % Plt Count 41 L (150-400) K/uL MPV 10.80 (7.40-12.00) fL Add Manual Diff YES Neutrophils % (Manual) 58 (48.0-80.0) % Band Neutrophils % 6 % Lymphocytes % (Manual) 12 L (16.0-40.0) % Monocytes % (Manual) 10 (0.0-15.0) % Eosinophils % (Manual) 14 H (0.0-7.0) % Nucleated RBC % 0.0 /100WBC Absolute Seg Neuts 1.4 Band Neutrophils # 0.1 Lymphocytes # (Manual) 0.3 Monocytes # (Manual) 0.2 Eosinophils # (Manual) 0.3 Nucleated RBCs # 0 K/uL Sodium 141 (136-146) mmol/L Potassium 3.6 (3.5-5.1) mmol/L Chloride 110 (98-110) mmol/L Carbon Dioxide 26 (21-31) mmol/L BUN 6 (6.0-23.0) mg/dL Creatinine 0.6 (0.6-1.5) mg/dL Est Cr Clr Drug Dosing 41.77 mL/min Estimated GFR (MDRD) > 60.0 ml/min Glucose 86 (60-110) mg/dL Calcium 7.7 L (8.8-10.8) mg/dL Magnesium 1.5 (1.5-2.3) mEq/L BERTHA Results - Last 24 hrs: Microbiology 03/05/17 13:54 Aerobic Blood Culture - Preliminary Blood - Venous - Lab Draw NO GROWTH AFTER 3 DAYS Anaerobic Blood Culture - Preliminary NO GROWTH AFTER 3 DAYS 03/05/17 13:46 Aerobic Blood Culture - Preliminary Blood - Venous NO GROWTH AFTER 3 DAYS Anaerobic Blood Culture - Preliminary NO GROWTH AFTER 3 DAYS 03/06/17 18:20 Gram Stain - Final Sputum - Expectorated Sputum Culture - Final Escherichia Coli YEAST Normal Respiratory Rochelle Med Orders - Current: Current Medications Acetaminophen (Tylenol Extra Strength) 1,000 mg PO Q12H CATIE Last Admin: 03/09/17 09:31 Dose: 1,000 mg Albuterol (Proventil Neb Soln) 2.5 mg NEB Q2H PRN PRN Reason: Shortness Of Breath/wheezing Albuterol/Ipratropium (Duoneb 3.0-0.5 Mg/3 Ml) 3 ml NEB Q6HRRT [facility] Last Admin: 03/09/17 06:00 Dose: 3 ml Azithromycin (Zithromax) 250 mg PO Q24H [facility] Last Admin: 03/09/17 09:33 Dose: 250 mg Diltiazem HCl (Cardizem Cd) 180 mg PO DAILY [facility] Last Admin: 03/09/17 09:30 Dose: 180 mg Docusate Sodium (Colace) 100 mg PO BID [facility] Last Admin: 03/09/17 09:33 Dose: 100 mg Ferrous Sulfate (Ferrous Sulfate) 325 mg PO TuThSa@0830 [facility] Last Admin: 03/09/17 09:31 Dose: 325 mg Fish Oil (Fish Oil) 1 gm PO BEDTIME [facility] Last Admin: 03/08/17 21:46 Dose: 1 gm Folic Acid (Folic Acid) 1 mg PO DAILY [facility] Last Admin: 03/09/17 09:30 Dose: 1 mg Haloperidol Lactate (Haldol) 1 mg IM Q8H PRN PRN Reason: Agitation Last Admin: 03/08/17 21:54 Dose: 1 mg Ceftriaxone Sodium/Dextrose 1 (gm/ Premix) 50 mls @ 100 mls/hr IV Q24H [facility] Last Admin: 03/08/17 12:36 Dose: 100 mls/hr Melatonin (Melatonin) 3 mg PO BEDTIME [facility] Last Admin: 03/08/17 21:43 Dose: 3 mg Metoprolol Succinate (Toprol Xl) 50 mg PO DAILY [facility] Last Admin: 03/09/17 09:33 Dose: 50 mg Metoprolol Tartrate (Lopressor) 5 mg IVPUSH Q3H PRN PRN Reason: Arrhythmia Last Admin: 03/08/17 01:27 Dose: 5 mg Mirtazapine (Remeron) 15 mg PO BEDTIME [facility] Last Admin: 03/08/17 21:43 Dose: 15 mg Multivitamins/Minerals (Thera M Plus) 1 tab PO DAILY [facility] Last Admin: 03/09/17 09:33 Dose: 1 tab Omeprazole (Omeprazole) 20 mg PO DAILY [facility] Last Admin: 03/09/17 09:30 Dose: 20 mg Ondansetron HCl (Zofran) 4 mg IVPUSH Q4H PRN PRN Reason: Nausea Ptom Calcium Adult (Gummies 500mg) 1 each CHEW BID [facility] Last Admin: 03/09/17 09:32 Dose: Not Given Sodium Chloride (Saline Flush) 10 ml FLUSH ASDIRECTED PRN PRN Reason: flush Tramadol HCl (Ultram) 50 mg PO BID [facility] Last Admin: 03/09/17 09:31 Dose: 50 mg Discontinued Medications Albuterol/Ipratropium (Duoneb 3.0-0.5 Mg/3 Ml) 3 ml NEB ONETIME ONE Stop: 03/05/17 10:24 Last Admin: 03/05/17 10:31 Dose: 3 ml Azithromycin (Zithromax) 500 mg PO Q24H [facility] Last Admin: 03/05/17 12:15 Dose: 500 mg Diltiazem HCl (Diltiazem) 10 mg IVPUSH ONETIME ONE Stop: 03/06/17 19:58 Last Admin: 03/06/17 20:12 Dose: 10 mg Diltiazem HCl (Cardizem Cd) 240 mg PO ONETIME ONE Stop: 03/06/17 20:16 Last Admin: 03/06/17 20:21 Dose: 240 mg Haloperidol Lactate (Haldol) 1 mg IM ONETIME ONE Stop: 03/08/17 09:57 Last Admin: 03/08/17 10:08 Dose: 1 mg Heparin Sodium (Porcine) (Heparin Sodium) 5,000 units SUBCUT Q12HR [facility] Sodium Chloride (Normal Saline) 1,000 mls @ 999 mls/hr IV STAT ONE Stop: 03/05/17 11:25 Last Admin: 03/05/17 10:58 Dose: 999 mls/hr Ceftriaxone Sodium/Dextrose 1 (gm/ Premix) 50 mls @ 100 mls/hr IV ONETIME ONE Stop: 03/05/17 12:18 Last Admin: 03/05/17 12:10 Dose: 100 mls/hr Magnesium Sulfate 2 gm/ Premix 50 mls @ 50 mls/hr IV ONETIME ONE Stop: 03/07/17 12:30 Last Admin: 03/07/17 11:50 Dose: 50 mls/hr Sodium Chloride (Normal Saline) 1,000 mls @ 75 mls/hr IV ASDIRECTED CATIE Stop: 03/09/17 00:49 Last Admin: 03/08/17 12:36 Dose: 75 mls/hr Lorazepam (Ativan) 0.5 mg IVPUSH Q3H PRN PRN Reason: Agitation Last Admin: 03/08/17 04:23 Dose: 0.5 mg Morphine Sulfate (Morphine) 2 mg IVPUSH ONETIME ONE Stop: 03/06/17 19:20 Last Admin: 03/06/17 19:30 Dose: 2 mg Potassium Chloride (Klor-Con M20) 40 meq PO ONETIME ONE Stop: 03/07/17 11:51 Last Admin: 03/07/17 11:49 Dose: 40 meq Quetiapine Fumarate (Seroquel) 100 mg PO BEDTIME [facility] Last Admin: 03/08/17 01:57 Dose: Not Given Tramadol HCl (Ultram) 100 mg PO Q6H PRN PRN Reason: Pain Last Admin: 03/05/17 20:15 Dose: 100 mg *Q Meaningful Use (DIS) - VTE *Q VTE Criteria *Q: - Stroke *Q Stroke Criteria *Q: - AMI *Q AMI Criteria *Q:
[2017-03-09 11:16] VITALS: BP 180/91
[2017-03-09] MEDS: cefTRIAXone 1 GM in Premix Bag 1 BAG IV SCH (12:58)
== END 2017-03-09 11:00 | disposition home or self-care (01) | DRG 178 ==
LOC: MW.ED 10:12 → MW.MS 11:56
PROVIDERS: ADMIT Family Medicine; ATTEND Family Medicine
DX: J18.1 Lobar pneumonia, unspecified organism (principal); C85.90 Non-Hodgkin lymphoma, unspecified, unspecified site; F32.9 Major depressive disorder, single episode, unspecified; J15.5 Pneumonia due to Escherichia coli; C85.10 Unspecified B-cell lymphoma, unspecified site; M19.90 Unspecified osteoarthritis, unspecified site; I48.91 Unspecified atrial fibrillation; R09.02 Hypoxemia; D72.829 Elevated white blood cell count, unspecified; D69.6 Thrombocytopenia, unspecified; D64.9 Anemia, unspecified; R41.0 Disorientation, unspecified; Z79.899 Other long term (current) drug therapy; Z85.028 Personal history of other malignant neoplasm of stomach; Z87.891 Personal history of nicotine dependence
CPT/HCPCS: 36415; 71010; 80053; 83880; 85025; 93005; 94664; 96361; 99285; J7040; 80048; 83605; 83735; 87040; 87070; 87077; 87186; 87205; 94640; 96360; 96374; 99283; A9270-GY; J0696; J1630; J2060; J2270; J3475; J3490

== ENCOUNTER 2017-03-25 08:05 | Emergency (ER) | payer MEDICARE, BC ==
[2017-03-25] MEDS ORDERED: Sodium Chloride 0.9% 2.5 ML Syringe FLUSH PRN (08:10)
[2017-03-25] MEDS ORDERED: Sodium Chloride 0.9% 10 ML Syringe FLUSH PRN (08:10)
--- NOTE | 2017-03-25 08:17 | EDM.PDOC ---
ED HPI GENERAL MEDICAL PROBLEM - General Stated Complaint: STUBBLE AND FELL ON WALL HIT HEAD Time Seen by Provider: 03/25/17 08:08 - History of Present Illness INITIAL COMMENTS - FREE TEXT/NARRATIVE: HISTORY AND PHYSICAL: History of present illness: The patient is a 86-year-old female with a known history of newly diagnosed B- cell lymphoma who last Chemotherapy on March 21 and who had a recent admission with a new diagnosis of atrial fibrillation for which she is taking metoprolol and diltiazem who presents today via EMS after she got up this morning stumbled and hit the back of her head. According to the patient she did not fall to the ground pass out or blackout and only has complaints of pain to the posterior right scalp area. The patient was recently admitted at the end of February with the new A. fib and is on medications for that and is not currently on any blood thinners. The patient has an access line in her right arm for her chemotherapy. The patient follows with Dr. Buck Hurtado at [facility]. The patient denies any chest pain shortness of breath abdominal pain vomiting or diarrhea and denies any recent fever or upper respiratory symptoms. She has no neck or back pain. The daughter tells nursing and me that she is concerned because she has been having some visual hallucinations and increased confusion- --,thinking that there are people in her house which need to leave, seeing people that are not there--- which occurred last evening but now seems to have improved but she still insists that there were people in the house last evening. The patient is not exhibiting any of that symptomatology here on my evaluation. She is alert to person and place and she knows the day of the week but initially gave us the wrong year but then she will recognize she made a mistake and corrected herself Patient moves all extremities and transferred to the bed without difficulty. Again when the patient stumbled she did not say that she was dizzy or lightheaded and she says she did catch herself and did not fall to the ground or completely pass out. On my initial evaluation she is appropriate coherent and not having any evidence of any alteration of mental status as has been described by the daughter. I have reviewed the last admission chart from 03/05 to 03/09 where she was admitted for pneumonia a brief episode of A. fib with RVR and some delirium. At that time the family requested discharge home as her confusion and delirium had improved. Review of systems: As per history of present illness and below otherwise all systems reviewed and negative. Past medical history: As per history of present illness and as reviewed below otherwise noncontributory. Surgical history: As per history of present illness and as reviewed below otherwise noncontributory. Social history: No reported history of drug or alcohol abuse. Family history: As per history of present illness and as reviewed below otherwise noncontributory. Physical exam: General: Well-developed frail woman who moves easily in the room and does not require any assistance with movement or positioning. HEENT: Atraumatic except for a small area of contusion at the right posterior occipital scalp without palpable bony deformity,, normocephalic, pupils reactive , negative for conjunctival pallor or scleral icterus, mucous membranes dry throat clear, neck supple, nontender, trachea midline. Patient has no midline step-offs tenderness defects of the cervical spine Lungs: Clear to auscultation with slightly diminished breath sounds at the bases , breath sounds equal bilaterally, chest nontender. Heart: S1S2, regular rate with slightly irregular rhythm with some PACs and no overt murmurs Abdomen: Soft, nondistended, nontender. Negative for masses or hepatosplenomegaly. Negative for costovertebral tenderness. Pelvis: Stable nontender. No lateral hip tenderness and full range of motion at the hips 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: Deferred. Rectal: Deferred. Extremities: Atraumatic with full range of motion without defects or deficits, there is a chemotherapy access line in the right upper extremity, negative for cords or calf pain. Neurovascular unremarkable. Neuro: Awake, alert, oriented--- initially she did not know what year it was but then she realizes she made a mistake and corrected herself. Cranial nerves II through XII unremarkable. Cerebellum unremarkable. Motor and sensory unremarkable throughout. Exam nonfocal. Skin: Her chronic skin changes and decreased turgor throughout consistent with thinning of her skin but there are no overt rashes or lesions or any skin tears appreciated. Back: There are no midline step-offs tenderness defects of the thoracic or lumbar spine no posterior rib or posterior pelvis tenderness and no evidence of any soft tissue injuries such as abrasions ecchymosis or erythema. The spine is very rotated and there is kyphosis. Diagnostics: EKG CBC CMP INR lactic acid troponin UA urine culture if indicated CT scan of the head chest x-ray Therapeutics: IV O2 monitor IV fluids Continued monitoring of her mental status for signs of confusion or hallucination Please note we did discuss with the daughter the WBC count and she states that the patient did receive Neupogen last week 1104: Case was discussed with Dr. Cramer the oncologist at [facility] agrees with treatment of the sinusitis and that likely the elevation of the blood cell count is due to her Neupogen and steroids are given to her with her chemotherapy. He is not concerned about sepsis or bacteremia at this point nor SC. I've also discussed all testing results with the daughter and patient at bedside and have offered admission but according to the daughter she does get more confused when she is in the hospital and as this can be treated as an outpatient with Augmentin per Dr. Cramer he does not feel strongly about admission either. The daughter tells me that last time she got chemotherapy something similar happened as well and she is concerned it is related to the chemotherapy. Patient is up walking around going to the bathroom without distress. Impression: Gait imbalance likely secondary to acute maxillary sinusitis, closed head injury with scalp contusion, history of B cell lymphoma with recent Neupogen and steroid use and leukocytosis stable Definitive disposition and diagnosis as appropriate pending reevaluation and review of above. Right Lower Neck Pain Score (Numeric/FACES): 1 - Related Data Allergies Allergy/AdvReac Type Severity Reaction Status Date / Time No Known Allergies Allergy Verified 03/05/17 10:31 Home Meds: Home Meds Methotrexate 15 mg PO WE@0900 11/03/13 [History] Omeprazole 20 mg PO ACBREAKFAST 11/03/13 [History] traMADol [Ultram] 50 mg PO QID PRN 11/03/13 [History] Calcium Phosphate Trib/Vit D3 [Calcium Adult Gummies] 500 mg CHEW BID 02/01/17 [ History] Docusate Sodium [Stool Softener] 100 mg PO BID 02/01/17 [History] Ferrous Sulfate [Iron] 325 mg PO TUTHSA@0900 02/01/17 [History] Fish Oil/[place]-3 Fatty Acids [Fish Oil 1,000 MG] 1 gm PO BEDTIME 02/01/17 [ History] Folic Acid 1 mg PO DAILY 02/01/17 [History] Multivitamin [Multivitamins] 1 tab PO DAILY 02/01/17 [History] Acetaminophen [Tylenol Arthritis] 1,300 mg PO BID 03/06/17 [History] Melatonin 3 mg PO BEDTIME 03/06/17 [History] Vit C/E/Zn/Coppr/Lutein/Zeaxan [Preservision Areds 2 Softgel] 1 cap PO DAILY [History] traMADol [Ultram] 50 mg PO BID 03/06/17 [History] Diltiazem [Cardizem CD] 180 mg PO DAILY #30 cap.cd 03/09/17 [Rx] Levofloxacin [Levaquin] 500 mg PO Q24H #7 tablet 03/09/17 [Rx] Metoprolol Succinate [Toprol XL] 50 mg PO DAILY #30 tab.er 03/09/17 [Rx] Ondansetron HCl [Ondansetron] 8 mg PO Q8HR PRN 03/25/17 [History] Prochlorperazine [Compazine] 1 tab PO Q6HR PRN 03/25/17 [History] predniSONE [predniSONE] 5 tab PO ASDIRECTED 03/25/17 [History] Past Medical History HEENT History: Reports: Hard of Hearing, Macular Degeneration Other HEENT History: wears glasses, top denture & bottom partial Respiratory History: Reports: SOB (intermittent SOB "for years"). Denies: COPD , PE Other Gastrointestinal History: hx stomach cancer 20 years ago with subtotal gastric resection 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 History: Reports: None. 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: Reports: Musculoskeletal History: Reports: Arthritis, Osteoporosis, RA Psychiatric History: Reports: Depression Hematologic History: Reports: Anemia Oncologic (Cancer) History: Reports: Lymphoma, Other (See Below) Other Oncologic History: hx of stomach ca - Infectious Disease History Infectious Disease History: Reports: Chicken Pox, Measles, Mumps - Past Surgical History Head Surgeries/Procedures: Reports: None HEENT Surgical History: Reports: Cataract Surgery GI Surgical History: Reports: Appendectomy, Colon, Other (See Below) Other GI Surgeries/Procedures: stomach resection for stomach cancer (3/4 of her stomach), partial bowel resection for "twisted bowel" Female Surgical History: Reports: Section Musculoskeletal Surgical History: Reports: Knee Replacement Dermatological Surgical History: Reports: Skin Biopsy Social & Family History - Family History Family Medical History: Noncontributory - Tobacco Use Smoking Status *Q: Never Smoker Years of Tobacco use: 25 Used Tobacco, but Quit: Yes Month Tobacco Last Used: quit smoking 33 yrs ago - Caffeine Use Caffeine Use: Reports: Coffee - Alcohol Use Days Per Week of Alcohol Use: 0 - Recreational Drug Use Recreational Drug Use: No - Living Situation & Occupation Living situation: Reports: Alone, Other (family near by) Occupation: Retired ED ROS GENERAL - Review of Systems Review Of Systems: ROS reveals no pertinent complaints other than HPI. ED EXAM, GENERAL - Physical Exam Exam: See Below (see dictation) Course - Vital Signs Last Recorded V/S: Last Vital Signs Temp 36.3 C 03/25/17 08:10 Pulse 78 03/25/17 10:44 Resp 20 03/25/17 09:34 BP 136/76 03/25/17 10:44 Pulse Ox 93 L 03/25/17 10:44 - Orders/Labs/Meds Orders: Active Orders 24 hr Category Date Time Status EKG Documentation Completion [RC] STAT Care 03/25/17 08:09 Active Oxygen Therapy, ED [RC] ASDIRECTED Care 03/25/17 08:09 Active Pulse Oximetry [RC] ASDIRECTED Care 03/25/17 08:09 Active Sodium Chloride 0.9% [Normal Saline] 250 ml Med 03/25/17 08:30 Active IV STAT Sodium Chloride 0.9% [Saline Flush] Med 03/25/17 08:10 Active 10 ml FLUSH ASDIRECTED PRN Sodium Chloride 0.9% [Saline Flush] Med 03/25/17 08:10 Active 2.5 ml FLUSH ASDIRECTED PRN Saline Lock Insert [OM.PC] Stat Oth 03/25/17 08:09 Ordered Medication Orders Sodium Chloride (Normal Saline) 250 mls @ 999 mls/hr IV STAT CATIE Last Admin: 03/25/17 08:39 Dose: 999 mls/hr Sodium Chloride (Saline Flush) 10 ml FLUSH ASDIRECTED PRN PRN Reason: Keep Vein Open Last Admin: 03/25/17 08:37 Dose: 10 ml Sodium Chloride (Saline Flush) 2.5 ml FLUSH ASDIRECTED PRN PRN Reason: Keep Vein Open Last Admin: 03/25/17 08:38 Dose: 2.5 ml Labs: Laboratory Tests 03/25/17 03/25/1703/25/17 Range/Units 08:21 08:21 08:21 WBC (4.0-11.0) K/uL RBC (4.30-5.90) M/uL Hgb (12.0-16.0) g/dL Hct (36.0-46.0) % MCV (80.0-98.0) fL MCH (27.0-32.0) pg MCHC (31.0-37.0) g/dL RDW Std Deviation (28.0-62.0) fl RDW Coeff of Monica (11.0-15.0) % Plt Count (150-400) K/uL MPV (7.40-12.00) fL Add Manual Diff Neutrophils % (Manual) (48.0-80.0) % Band Neutrophils % % Lymphocytes % (Manual) (16.0-40.0) % Monocytes % (Manual) (0.0-15.0) % Nucleated RBC % /100WBC Absolute Seg Neuts Band Neutrophils # Lymphocytes # (Manual) Monocytes # (Manual) Nucleated RBCs # K/uL INR 1.08 (0.86-1.11) Lactate 1.7 (0.20-2.00) mmol/L Sodium (136-146) mmol/L Potassium (3.5-5.1) mmol/L Chloride (98-110) mmol/L Carbon Dioxide (21-31) mmol/L BUN (6.0-23.0) mg/dL Creatinine (0.6-1.5) mg/dL Est Cr Clr Drug Dosing mL/min Estimated GFR (MDRD) ml/min Glucose (60-110) mg/dL Calcium (8.8-10.8) mg/dL Total Bilirubin (0.1-1.5) mg/dL AST (5-40) IU/L ALT (8-54) IU/L Alkaline Phosphatase (40-150) Troponin I < 0.10 (0.0-0.29) NG/ML Total Protein (6.0-8.0) g/dL Albumin (3.4-4.8) g/dL Globulin (2.0-3.5) g/dL Albumin/Globulin Ratio (1.3-2.8) Urine Color Urine Appearance Urine pH (5.0-8.0) Ur Specific [place] (1.001-1.035) Urine Protein (NEGATIVE) mg/dL Urine Glucose (UA) (NEGATIVE) mg/dL Urine Ketones (NEGATIVE) mg/dL Urine Occult Blood (NEGATIVE) Urine Nitrite (NEGATIVE) Urine Bilirubin (NEGATIVE) Urine Urobilinogen (<2.0) EU/dL Ur Leukocyte Esterase (NEGATIVE) Urine RBC (0-2/HPF) Urine WBC (0-5/HPF) Ur Epithelial Cells (NONE-FEW) Amorphous Sediment (NEGATIVE) Urine Bacteria (NEGATIVE) 03/25/17 03/25/17 03/25/17 Range/Units 08:41 09:00 09:00 WBC 111.48 H (4.0-11.0) K/uL RBC 2.68 L (4.30-5.90) M/uL Hgb 9.1 L (12.0-16.0) g/dL Hct 26.6 L (36.0-46.0) % MCV 99.3 H (80.0-98.0) fL MCH 34.0 H (27.0-32.0) pg MCHC 34.2 (31.0-37.0) g/dL RDW Std Deviation 67.0 H (28.0-62.0) fl RDW Coeff of Monica 19 H (11.0-15.0) % Plt Count 231 (150-400) K/uL MPV 11.00 (7.40-12.00) fL Add Manual Diff YES Neutrophils % (Manual) 90 H (48.0-80.0) % Band Neutrophils % 5 % Lymphocytes % (Manual) 1 L (16.0-40.0) % Monocytes % (Manual) 4 (0.0-15.0) % Nucleated RBC % 0.0 /100WBC Absolute Seg Neuts 100.3 Band Neutrophils # 5.6 Lymphocytes # (Manual) 1.1 Monocytes # (Manual) 4.5 Nucleated RBCs # 0 K/uL INR (0.86-1.11) Lactate (0.20-2.00) mmol/L Sodium 133 L (136-146) mmol/L Potassium 4.5 (3.5-5.1) mmol/L Chloride 104 (98-110) mmol/L Carbon Dioxide 21 (21-31) mmol/L BUN 26 H (6.0-23.0) mg/dL Creatinine 0.8 (0.6-1.5) mg/dL Est Cr Clr Drug Dosing 34.46 mL/min Estimated GFR (MDRD) > 60.0 ml/min Glucose 111 H (60-110) mg/dL Calcium 8.9 (8.8-10.8) mg/dL Total Bilirubin 0.7 (0.1-1.5) mg/dL AST 25 (5-40) IU/L ALT 21 (8-54) IU/L Alkaline Phosphatase 107 (40-150) Troponin I (0.0-0.29) NG/ML Total Protein 5.1 L (6.0-8.0) g/dL Albumin 3.2 L (3.4-4.8) g/dL Globulin 1.9 L (2.0-3.5) g/dL Albumin/Globulin Ratio 1.7 (1.3-2.8) Urine Color YELLOW Urine Appearance CLEAR Urine pH 5.5 (5.0-8.0) Ur Specific [place] 1.020 (1.001-1.035) Urine Protein NEGATIVE (NEGATIVE) mg/dL Urine Glucose (UA) NEGATIVE (NEGATIVE) mg/dL Urine Ketones NEGATIVE (NEGATIVE) mg/dL Urine Occult Blood NEGATIVE (NEGATIVE) Urine Nitrite NEGATIVE (NEGATIVE) Urine Bilirubin NEGATIVE (NEGATIVE) Urine Urobilinogen 0.2 (<2.0) EU/dL Ur Leukocyte Esterase NEGATIVE (NEGATIVE) Urine RBC 0-1 (0-2/HPF) Urine WBC 0-2 (0-5/HPF) Ur Epithelial Cells RARE (NONE-FEW) Amorphous Sediment RARE (NEGATIVE) Urine Bacteria RARE (NEGATIVE) Meds: Medications Generic Name Dose Route Start Last Admin Trade Name Freq PRN Reason Stop Dose Admin Sodium Chloride 250 mls @ 999 mls/hr 03/25/17 08:30 03/25/17 08:39 Normal Saline IV 999 mls/hr STAT CATIE Administration Sodium Chloride 10 ml 03/25/17 08:10 03/25/17 08:37 Saline Flush FLUSH 10 ml ASDIRECTED PRN Administration Keep Vein Open Sodium Chloride 2.5 ml 03/25/17 08:10 03/25/17 08:38 Saline Flush FLUSH 2.5 ml ASDIRECTED PRN Administration Keep Vein Open Departure - Departure Time of Disposition: 11:10 Disposition: Home, Self-Care 01 Condition: Good Clinical Impression: Closed head injury Qualifiers: Encounter type: initial encounter Qualified Code(s): S09.90XA - Unspecified injury of head, initial encounter Scalp hematoma Qualifiers: Encounter type: initial encounter Qualified Code(s): S00.03XA - Contusion of scalp, initial encounter Acute sinusitis Qualifiers: Sinusitis location: maxillary Recurrence: not specified as recurrent Qualified Code(s): J01.00 - Acute maxillary sinusitis, unspecified - Discharge Information Referrals: PCP,None [Primary Care Provider] - Additional Instructions: The following information is given to patients seen in the emergency department who are being discharged to home. This information is to outline your options for follow-up care. We provide all patients seen in our emergency department with a follow-up referral. The need for follow-up, as well as the timing and circumstances, are variable depending upon the specifics of your emergency department visit. If you don't have a primary care physician on staff, we will provide you with a referral. We always advise you to contact your personal physician following an emergency department visit to inform them of the circumstance of the visit and for follow-up with them and/or the need for any referrals to a consulting specialist. The emergency department will also refer you to a specialist when appropriate. This referral assures that you have the opportunity for followup care with a specialist. All of these measure are taken in an effort to provide you with optimal care, which includes your followup. Under all circumstances we always encourage you to contact your private physician who remains a resource for coordinating your care. When calling for followup care, please make the office aware that this follow-up is from your recent emergency room visit. If for any reason you are refused follow-up, please contact the [facility] emergency department at and ask to speak to the emergency department charge nurse. [address] [place] [address] Please contact and follow up with Dr. Buck Evans your provider in the clinic in the next few days and also continue to follow with your schedule per the oncology center for more treatments regarding your lymphoma. Please take antibiotics until finished and expect some in balance with your gait over the next few days so please take care. Return to ER as needed and as discussed. - My Orders Last 24 Hours: My Active Orders 03/25/17 08:09 EKG Documentation Completion [RC] STAT Oxygen Therapy, ED [RC] ASDIRECTED Pulse Oximetry [RC] ASDIRECTED Saline Lock Insert [OM.PC] Stat 03/25/17 08:10 Sodium Chloride 0.9% [Saline Flush] 10 ml FLUSH ASDIRECTED PRN Sodium Chloride 0.9% [Saline Flush] 2.5 ml FLUSH ASDIRECTED PRN 03/25/17 08:30 Sodium Chloride 0.9% [Normal Saline] 250 ml IV STAT - Assessment/Plan Last 24 Hours: My Active Orders 03/25/17 08:09 EKG Documentation Completion [RC] STAT Oxygen Therapy, ED [RC] ASDIRECTED Pulse Oximetry [RC] ASDIRECTED Saline Lock Insert [OM.PC] Stat 03/25/17 08:10 Sodium Chloride 0.9% [Saline Flush] 10 ml FLUSH ASDIRECTED PRN Sodium Chloride 0.9% [Saline Flush] 2.5 ml FLUSH ASDIRECTED PRN 03/25/17 08:30 Sodium Chloride 0.9% [Normal Saline] 250 ml IV STAT
[2017-03-25] MEDS ORDERED: Sodium Chloride 0.9% 250 ML IV SCH (08:30)
--- NOTE | 2017-03-25 09:27 | CT ---
EXAMINATION: Non contrast CT head. Coronal and sagittal reformats. HISTORY: Pain FINDINGS: No evidence of intra or extra axial hemorrhage, mass, midline shift, hydrocephalus or edema. Moderat e generalized atrophy and periventricular and subcortical white matter hypodensities noted. No hypoattenuation changes in the major vascular territories to suggest acute infarct. No abnormal intracranial calcifications are detected. Mild vascular calcifications are noted. Air-flu id levels are noted within the maxillary sinuses bilaterally. Minimal opacification of inferior left mastoid air cells noted. Orbits and globes are symmetric. Pituitary fossa appears unremarkable. The calvarium is intact. No evidence of skull fracture. IMPRESSION: 1. Air-fluid levels within the maxillary sinuses, correlate for acute sinusitis. 2. No acute intracranial findings. 3. Moderate generalized atrophy and small vessel ischemic changes.
--- NOTE | 2017-03-25 09:39 | CR ---
EXAMINATION: Portable chest radiograph. HISTORY: Shortness of breath. CT chest dated 12/26/2016 and chest radiograph dated 03/05/2017. FINDINGS: The trachea is midline. The cardiomediastinal silhouette is within normal limits. No pulmonary infilt rates, effusions or pneumothorax. There is a right-sided PICC line with tip in good position. Mild ch ronic interstitial prominence and bibasilar pleural scarring. Old right rib fractures noted. Generalized osteopenia. IMPRESSION: No acute cardiopulmonary process.
[2017-03-25 10:25] LABS: CHLORIDE,CL 104 mmol/L (98-110); SODIUM,NA 133 mmol/L (136-146)
[2017-03-25 11:09] VITALS: BP 153/86
== END 2017-03-25 11:40 | disposition home or self-care (01) ==
LOC: MW.ED 08:05
DX: S00.03XA Contusion of scalp, initial encounter (principal); S09.90XA Unspecified injury of head, initial encounter; J01.00 Acute maxillary sinusitis, unspecified; D64.9 Anemia, unspecified; Z96.659 Presence of unspecified artificial knee joint; Z79.899 Other long term (current) drug therapy; W22.8XXA Striking against or struck by other objects, initial encounter
CPT/HCPCS: 36415; 70450; 71010; 80053; 81001; 83605; 84484; 85025; 85610; 93005; 99285; J7050; 99284

== ENCOUNTER 2017-05-05 19:39 | Inpatient (IN) | payer MEDICARE, BC ==
[2017-05-05] MEDS ORDERED: Albuterol 0.083% 2.5 MG/3 ML Neb Soln NEB ONE (20:04)
[2017-05-05 20:53] LABS: CHLORIDE,CL 112 mmol/L (98-110); SODIUM,NA 142 mmol/L (136-146)
--- NOTE | 2017-05-05 21:48 | EDM.PDOC ---
ED HPI GENERAL MEDICAL PROBLEM - General Chief Complaint: Respiratory Problem Stated Complaint: COUGH Time Seen by Provider: 05/05/17 19:45 Source of Information: Reports: Patient, Family History Limitations: Reports: No Limitations - History of Present Illness INITIAL COMMENTS - FREE TEXT/NARRATIVE: History of present illness: [86-year-old female brought in by family with concerns of shortness of breath. Patient is an oncology patient and his receiving treatment for lymphoma] Review of systems: As per history of present illness and below otherwise all systems reviewed and negative. Past medical history: As per history of present illness and as reviewed below otherwise noncontributory. Surgical history: As per history of present illness and as reviewed below otherwise noncontributory. Social history: No reported history of drug or alcohol abuse. Family history: As per history of present illness and as reviewed below otherwise noncontributory. Physical exam: HEENT: Atraumatic, normocephalic, pupils reactive, negative for conjunctival pallor or scleral icterus, mucous membranes moist, throat clear, neck supple, nontender, trachea midline. Lungs: Diminished throughout otherwise equal equal bilaterally, chest nontender. Heart: S1S2, regular, negative for clicks, rubs, or JVD. Abdomen: Soft, nondistended, nontender. Negative for masses or hepatosplenomegaly. Negative for costovertebral tenderness. Pelvis: Stable nontender. 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: Deferred. Rectal: Deferred. Extremities: Atraumatic, negative for cords or calf pain. Neurovascular unremarkable. Neuro: Awake, alert, oriented. Cranial nerves II through XII unremarkable. Cerebellum unremarkable. Motor and sensory unremarkable throughout. Exam nonfocal. Patient's white blood cell came back very elevated from what it was 4 days ago, patient does take steroids but is on a decreased dose from before which would not explain this increase. Spoke with Dr. Aleman for placement secondary to need for O2 support and benefit from RT treatment Diagnostics: [CBC, CMP, x-ray of the chest] Therapeutics: [Albuterol] Impression: [#1 shortness of breath] Plan: [Admit] Definitive disposition and diagnosis as appropriate pending reevaluation and review of above. - Related Data Allergies Allergy/AdvReac Type Severity Reaction Status Date / Time No Known Allergies Allergy Verified 05/05/17 19:51 Home Meds: Home Meds Omeprazole 20 mg PO ACBREAKFAST 11/03/13 [History] Calcium Phosphate Trib/Vit D3 [Calcium Adult Gummies] 500 mg CHEW BID 02/01/17 [ History] Docusate Sodium [Stool Softener] 100 mg PO BID 02/01/17 [History] Ferrous Sulfate [Iron] 3 tab PO WEEKLY 02/01/17 [History] Fish Oil/[place]-3 Fatty Acids [Fish Oil 1,000 MG] 1 gm PO BEDTIME 02/01/17 [ History] Folic Acid 1 mg PO DAILY 02/01/17 [History] Multivitamin [Multivitamins] 1 tab PO DAILY 02/01/17 [History] Acetaminophen [Tylenol Arthritis] 650 mg PO BID 03/06/17 [History] Melatonin 3 mg PO BEDTIME 03/06/17 [History] Vit C/E/Zn/Coppr/Lutein/Zeaxan [Preservision Areds 2 Softgel] 1 cap PO DAILY [History] traMADol [Ultram] 50 mg PO BID 03/06/17 [History] Metoprolol Succinate [Toprol XL] 50 mg PO DAILY #30 tab.er 03/09/17 [Rx] Ondansetron HCl [Ondansetron] 8 mg PO Q8HR PRN 03/25/17 [History] Prochlorperazine [Compazine] 1 tab PO Q6HR PRN 03/25/17 [History] predniSONE [predniSONE] 2.5 tab PO ASDIRECTED 03/25/17 [History] DULoxetine [Cymbalta] 30 mg PO DAILY 05/05/17 [History] Past Medical History HEENT History: Reports: Hard of Hearing, Macular Degeneration Other HEENT History: wears glasses, top denture & bottom partial Cardiovascular History: Reports: Afib Respiratory History: Reports: SOB Gastrointestinal History: Reports: Other (See Below) Other Gastrointestinal History: hx stomach cancer 20 years ago with subtotal gastric resection 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 History: Reports: None 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: Musculoskeletal History: Reports: Arthritis, Osteoporosis, RA Neurological History: Reports: None Psychiatric History: Reports: Depression Endocrine/Metabolic History: Reports: None Hematologic History: Reports: Anemia Immunologic History: Reports: Other (See Below) Other Immunologic History: patietn is on chemotheraphy Oncologic (Cancer) History: Reports: Lymphoma, Other (See Below) Other Oncologic History: hx of stomach ca - Infectious Disease History Infectious Disease History: Reports: Chicken Pox - Past Surgical History Head Surgeries/Procedures: Reports: None HEENT Surgical History: Reports: Cataract Surgery Cardiovascular Surgical History: Reports: None GI Surgical History: Reports: Appendectomy, Colon, Other (See Below) Other GI Surgeries/Procedures: stomach resection for stomach cancer (3/4 of her stomach), partial bowel resection for "twisted bowel" Female Surgical History: Reports: Section Musculoskeletal Surgical History: Reports: Knee Replacement Dermatological Surgical History: Reports: Skin Biopsy Social & Family History - Family History Family Medical History: Noncontributory - Tobacco Use Smoking Status *Q: Never Smoker Years of Tobacco use: 25 Used Tobacco, but Quit: Yes Month Tobacco Last Used: quit smoking 33 yrs ago - Caffeine Use Caffeine Use: Reports: Coffee, Tea - Alcohol Use Days Per Week of Alcohol Use: 0 - Recreational Drug Use Recreational Drug Use: No - Living Situation & Occupation Living situation: Reports: Alone, Other (family near by) Occupation: Retired ED ROS GENERAL - Review of Systems Review Of Systems: See Below (See history of present illness) ED EXAM, GENERAL - Physical Exam Exam: See Below (See history of present illness) Course - Vital Signs Last Recorded V/S: Last Vital Signs Temp 35.6 C 05/05/17 19:51 Pulse 109 H 05/05/17 19:51 Resp 19 05/05/17 19:51 BP 221/104 H 05/05/17 19:51 Pulse Ox 88 L 05/05/17 19:51 - Orders/Labs/Meds Orders: Active Orders 24 hr Category Date Time Status RT Aerosol Therapy [RC] ASDIRECTED Care 05/05/17 20:04 Active Chest 2V [CR] Stat Exams 05/05/17 20:04 Taken CULTURE BLOOD [BC] Stat Lab 05/05/17 20:18 Received CULTURE BLOOD [BC] Stat Lab 05/05/17 20:21 Received LACTIC ACID,WHOLE BLOOD [BG] Stat Lab 05/05/17 21:27 Ordered Blood Culture x2 Reflex Set [OM.PC] Stat Oth 05/05/17 20:12 Ordered Labs: Laboratory Tests 05/05/17 05/05/17 Range/Units 20:18 20:18 WBC 55.24 H (4.0-11.0) K/uL RBC 2.81 L (4.30-5.90) M/uL Hgb 9.4 L (12.0-16.0) g/dL Hct 29.0 L (36.0-46.0) % MCV 103.2 H (80.0-98.0) fL MCH 33.5 H (27.0-32.0) pg MCHC 32.4 (31.0-37.0) g/dL RDW Std Deviation 68.4 H (28.0-62.0) fl RDW Coeff of Monica 18 H (11.0-15.0) % Plt Count 88 L (150-400) K/uL MPV 11.70 (7.40-12.00) fL Add Manual Diff YES Neutrophils % (Manual) 89 H (48.0-80.0) % Band Neutrophils % 9 % Lymphocytes % (Manual) 1 L (16.0-40.0) % Monocytes % (Manual) 1 (0.0-15.0) % Nucleated RBC % 0.0 /100WBC Absolute Seg Neuts 49.2 H (1.4-5.7) Band Neutrophils # 5.0 Lymphocytes # (Manual) 0.6 (0.6-2.4) Monocytes # (Manual) 0.6 (0.0-0.8) Nucleated RBCs # 0 K/uL Sodium 142 (136-146) mmol/L Potassium 4.2 (3.5-5.1) mmol/L Chloride 112 H (98-110) mmol/L Carbon Dioxide 18 L (21-31) mmol/L BUN 17 (6.0-23.0) mg/dL Creatinine 0.8 (0.6-1.5) mg/dL Est Cr Clr Drug Dosing 32.46 mL/min Estimated GFR (MDRD) > 60.0 ml/min Glucose 136 H (60-110) mg/dL Calcium 8.4 L (8.8-10.8) mg/dL Total Bilirubin 1.1 (0.1-1.5) mg/dL AST 16 (5-40) IU/L ALT 10 (8-54) IU/L Alkaline Phosphatase 104 (40-150) Total Protein 5.5 L (6.0-8.0) g/dL Albumin 3.3 L (3.4-4.8) g/dL Globulin 2.2 (2.0-3.5) g/dL Albumin/Globulin Ratio 1.5 (1.3-2.8) Meds: Medications Discontinued Medications Generic Name Dose Route Start Last Admin Trade Name Jermain PRN Reason Stop Dose Admin Albuterol 2.5 mg 05/05/17 20:04 05/05/17 20:25 Proventil Neb Soln NEB 05/05/17 20:05 2.5 mg ONETIME ONE Administration Departure - Departure Time of Disposition: 21:49 Disposition: Admitted As Inpatient 64 Condition: Good Clinical Impression: SOB (shortness of breath) - Discharge Information Referrals: PCP,None [Primary Care Provider] - - My Orders Last 24 Hours: My Active Orders 05/05/17 20:04 RT Aerosol Therapy [RC] ASDIRECTED Chest 2V [CR] Stat 05/05/17 20:12 Blood Culture x2 Reflex Set [OM.PC] Stat 05/05/17 20:18 CULTURE BLOOD [BC] Stat 05/05/17 20:21 CULTURE BLOOD [BC] Stat 05/05/17 21:27 LACTIC ACID,WHOLE BLOOD [BG] Stat - Assessment/Plan Last 24 Hours: My Active Orders 05/05/17 20:04 RT Aerosol Therapy [RC] ASDIRECTED Chest 2V [CR] Stat 05/05/17 20:12 Blood Culture x2 Reflex Set [OM.PC] Stat 05/05/17 20:18 CULTURE BLOOD [BC] Stat 05/05/17 20:21 CULTURE BLOOD [BC] Stat 05/05/17 21:27 LACTIC ACID,WHOLE BLOOD [BG] Stat
[2017-05-06] MEDS: Albuterol/Ipratropium 3.0-0.5 MG/3 ML Neb Soln NEB SCH ×8 (00:14→23:00)
[2017-05-06] MEDS: Levofloxacin/Dextrose 5%-Water 750 MG in Premix Bag 1 BAG IV SCH (00:27)
[2017-05-06] MEDS ORDERED: Non-Formulary Medication 1 Each (Acetaminophen 650 MG) PO SCH (00:28)
[2017-05-06] MEDS: traMADol 50 MG Tab PO SCH ×3 (00:50→21:30)
[2017-05-06] MEDS: Acetaminophen 325 MG Tab PO SCH ×3 (01:16→21:30)
[2017-05-06] MEDS ORDERED: guaiFENesin/Dextromethorphan 100-10 MG/5 ML Syrup 237 ML Bottle PO SCH (04:30)
[2017-05-06] MEDS: guaiFENesin/Dextromethorphan 100-10 MG/5 ML Soln 10 ML Cup PO SCH ×5 (05:14→21:31)
[2017-05-06 06:40] LABS: CHLORIDE,CL 109 mmol/L (98-110); SODIUM,NA 136 mmol/L (136-146)
[2017-05-06] MEDS ORDERED: Cefepime 1 GM in Premix Bag 1 BAG IV SCH (07:45)
--- NOTE | 2017-05-06 08:21 | PCM.HP ---
H&P History of Present Illness - General Date of Service: 05/06/17 Admit Problem/Dx: Admission Diagnosis/Problem Admission Diagnosis/Problem Shortness of breath Source of Information: Patient History Limitations: Reports: No Limitations - History of Present Illness Initial Comments - Free Text/Narative: This 86 year old female with omh of B cell lymphoma, afib and arthiritis presented to the ED with concerns of worsening SOB. Her daughter Brissa reports last Saturday she started with some cold symptoms, such as cough and URI symptoms. SHe gave some over the counter cold medicine and she felt slightly better. She then received her chemo dosing on with Neupogen and Prednisone therapy the following day. She started coughing more and more and with worsening SOB, she denies any fevers at home, no chest pain, no urinary symptoms and no abdominal pain. No black or bloody BMs. In the ED leukocytosis noted at 55,240, hgb 9.4 and platelets 88, BMP was WNL. CXR negative, BC were obtained. She was noted to be hypertensive, tachycardic and hypoxic on RA at 88%. She was treated with Levaquin and Cefepime and admitted with possible pneumonia and gram negative roby infection. - Related Data Allergies/Adverse Reactions: Allergies Allergy/AdvReac Type Severity Reaction Status Date / Time No Known Allergies Allergy Verified 05/06/17 06:15 Home Medications: Home Meds Omeprazole 20 mg PO ACBREAKFAST 11/03/13 [History] Calcium Phosphate Trib/Vit D3 [Calcium Adult Gummies] 500 mg CHEW BID 02/01/17 [ History] Docusate Sodium [Stool Softener] 100 mg PO BID 02/01/17 [History] Ferrous Sulfate [Iron] 3 tab PO WEEKLY 02/01/17 [History] Fish Oil/[place]-3 Fatty Acids [Fish Oil 1,000 MG] 1 gm PO BEDTIME 02/01/17 [ History] Folic Acid 1 mg PO DAILY 02/01/17 [History] Multivitamin [Multivitamins] 1 tab PO DAILY 02/01/17 [History] Acetaminophen [Tylenol Arthritis] 650 mg PO BID 03/06/17 [History] Melatonin 3 mg PO BEDTIME 03/06/17 [History] Vit C/E/Zn/Coppr/Lutein/Zeaxan [Preservision Areds 2 Softgel] 1 cap PO DAILY [History] traMADol [Ultram] 50 mg PO BID 03/06/17 [History] Metoprolol Succinate [Toprol XL] 50 mg PO DAILY #30 tab.er 03/09/17 [Rx] Ondansetron HCl [Ondansetron] 8 mg PO Q8HR PRN 03/25/17 [History] Prochlorperazine [Compazine] 1 tab PO Q6HR PRN 03/25/17 [History] predniSONE [predniSONE] 2.5 tab PO ASDIRECTED 03/25/17 [History] DULoxetine [Cymbalta] 30 mg PO DAILY 05/05/17 [History] Past Medical History HEENT History: Reports: Hard of Hearing, Macular Degeneration Other HEENT History: wears glasses, top denture & bottom partial Cardiovascular History: Reports: Afib. 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: Musculoskeletal History: Reports: Arthritis, Osteoporosis, RA, Other (See Below) Other Musculoskeletal History: scoliosis Neurological History: Reports: None Psychiatric History: Reports: Depression Endocrine/Metabolic History: Reports: None Hematologic History: Reports: Anemia Immunologic History: Reports: Other (See Below) Other Immunologic History: patient is on chemotheraphy started on 02-28-17, latest 05-02-17 Oncologic (Cancer) History: Reports: Lymphoma, Other (See Below) Other Oncologic History: hx of stomach ca Dermatologic History: Reports: Cellulitis - Infectious Disease History Infectious Disease History: Reports: Chicken Pox - Past Surgical History Head Surgeries/Procedures: Reports: None HEENT Surgical History: Reports: Cataract Surgery Cardiovascular Surgical History: Reports: None Respiratory Surgical History: Reports: None GI Surgical History: Reports: Appendectomy, Colon, Other (See Below) Other GI Surgeries/Procedures: stomach resection for stomach cancer (3/4 of her stomach), partial bowel resection for "twisted bowel" Female Surgical History: Reports: Section Endocrine Surgical History: Reports: None Neurological Surgical History: Reports: Scoliosis Musculoskeletal Surgical History: Reports: Knee Replacement Other Musculoskeletal Surgeries/Procedures:: right knee replacement Dermatological Surgical History: Reports: Skin Biopsy Social & Family History - Family History Family Medical History: Noncontributory - Tobacco Use Smoking Status *Q: Former Smoker Years of Tobacco use: 25 Used Tobacco, but Quit: No Month Tobacco Last Used: quit smoking 33 yrs ago - Caffeine Use Caffeine Use: Reports: Coffee, Tea - Alcohol Use Days Per Week of Alcohol Use: 0 - Recreational Drug Use Recreational Drug Use: No - Living Situation & Occupation Living situation: Reports: Alone, Other (family near by) Occupation: Retired H&P Review of Systems - Review of Systems: Review Of Systems: See Below General: Reports: Malaise, Fatigue, Decreased Appetite. Denies: Fever, Chills Pulmonary: Reports: Shortness of Breath, Cough, Sputum (intermittently). Denies : Hemoptysis Cardiovascular: Reports: Dyspnea on Exertion. Denies: Chest Pain Gastrointestinal: Reports: No Symptoms. Denies: Abdominal Pain, Black Stool, Bloody Stool, Nausea, Vomiting 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: Reports: No Symptoms. Denies: Dysuria, Frequency, Burning Musculoskeletal: Reports: No Symptoms. Denies: Neck Pain Psychiatric: Reports: No Symptoms Neurological: Reports: No Symptoms. Denies: Confusion Hematologic/Lymphatic: Reports: Anemia Exam - Exam Exam: See Below - Vital Signs Vital Signs: Last Vital Signs Temp 98.3 F 05/06/17 08:00 Pulse 100 05/06/17 08:00 Resp 22 H 05/06/17 08:00 BP 104/58 L 05/06/17 08:00 Pulse Ox 98 05/06/17 08:00 Weight: 41.867 kg - Exam Quality Assessment: Supplemental Oxygen, DVT Prophylaxis (SCDs only) General: Alert, Oriented, Cooperative HEENT: Conjunctiva Clear, Mucosa Moist & Crump, Nares Patent, Posterior Pharynx Clear, Pupils Reactive Lungs: Rhonchi (throughout), Wheezing (scant wheezing) Cardiovascular: Regular Rhythm, Normal S1, Normal S2, Tachycardia GI/Abdominal Exam: Normal Bowel Sounds, Soft, Non-Tender, No Organomegaly, No Distention, No Abnormal Bruit, No Mass, Pelvis Stable Extremities: Pedal Edema (+1 pitting edema to bilateral lower legs) Neuro Extensive - Mental Status: Alert, Oriented x3, Normal Mood/Affect Neuro Extensive - Motor, Sensory, Reflexes: CN II-XII Intact Psychiatric: Alert, Normal Affect, Normal Mood - Patient Data Lab Results Last 24 hrs: Laboratory Results - last 24 hr 05/06/17 05/06/17 Range/Units 05:38 05:38 WBC 41.44 H (4.0-11.0) K/uL RBC 2.30 L (4.30-5.90) M/uL Hgb 7.6 L (12.0-16.0) g/dL Hct 23.4 L (36.0-46.0) % MCV 101.7 H (80.0-98.0) fL MCH 33.0 H (27.0-32.0) pg MCHC 32.5 (31.0-37.0) g/dL RDW Std Deviation 64.8 H (28.0-62.0) fl RDW Coeff of [place] 18 H (11.0-15.0) % Plt Count 53 L (150-400) K/uL MPV 11.30 (7.40-12.00) fL Add Manual Diff YES Neutrophils % (Manual) 94 H (48.0-80.0) % Band Neutrophils % 5 % Lymphocytes % (Manual) 1 L (16.0-40.0) % Nucleated RBC % 0.5 /100WBC Absolute Seg Neuts 39.0 H (1.4-5.7) Band Neutrophils # 2.1 Lymphocytes # (Manual) 0.4 L (0.6-2.4) Nucleated RBCs # 0 K/uL Sodium 136 (136-146) mmol/L Potassium 3.9 (3.5-5.1) mmol/L Chloride 109 (98-110) mmol/L Carbon Dioxide 19 L (21-31) mmol/L BUN 17 (6.0-23.0) mg/dL Creatinine 0.7 (0.6-1.5) mg/dL Est Cr Clr Drug Dosing 36.72 mL/min Estimated GFR (MDRD) > 60.0 ml/min Glucose 84 (60-110) mg/dL Calcium 7.8 L (8.8-10.8) mg/dL Result Diagrams: 05/06/17 05:38 05/06/17 05:38 *Q Meaningful Use (ADM) - VTE *Q VTE Criteria *Q: - Stroke *Q Stroke Criteria *Q: - AMI *Q AMI Criteria *Q: - Problem List (1) Gram-negative bacteremia SNOMED Code(s): 874135909029 ICD Code: R78.81 - BACTEREMIA Status: Acute Current Visit: Yes (2) Pneumonia SNOMED Code(s): 104002475 ICD Code: J18.9 - PNEUMONIA, UNSPECIFIED ORGANISM Status: Acute Current Visit: No Qualifiers: Pneumonia type: due to unspecified organism Laterality: unspecified laterality Lung location: unspecified part of lung Qualified Code(s): J18.9 - Pneumonia, unspecified organism (3) SOB (shortness of breath) SNOMED Code(s): 356361413 ICD Code: R06.02 - SHORTNESS OF BREATH Status: Acute Current Visit: Yes (4) Anemia SNOMED Code(s): 931286728 ICD Code: D64.9 - ANEMIA, UNSPECIFIED Status: Chronic Current Visit: Yes Qualifiers: Anemia type: other cause Other causes of anemia: antineoplastic chemotherapy Qualified Code(s): D64.81 - Anemia due to antineoplastic chemotherapy; T45.1X5A - Adverse effect of antineoplastic and immunosuppressive drugs, initial encounter; T45.1X5A - Adverse effect of antineoplastic and immunosuppressive drugs, initial encounter (5) Thrombocytopenia SNOMED Code(s): 658556016 ICD Code: D69.6 - THROMBOCYTOPENIA, UNSPECIFIED Status: Acute Current Visit: No (6) Lymphoma SNOMED Code(s): 369881277 ICD Code: C85.90 - NON-HODGKIN LYMPHOMA, UNSPECIFIED, UNSPECIFIED SITE Status: Chronic Current Visit: No Qualifiers: 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 Problem List Initiated/Reviewed/Updated: Yes Orders Last 24hrs: Active Orders 24 hr Category Date Time Status Antiembolic Devices [RC] PER UNIT ROUTINE Care 05/05/17 23:42 Active Oxygen Therapy [RC] PRN Care 05/05/17 23:41 Active RT Aerosol Therapy [RC] ASDIRECTED Care 05/05/17 23:44 Active Up ad Susie [RC] ASDIRECTED Care 05/05/17 23:41 Active VTE/DVT Education [RC] PER UNIT ROUTINE Care 05/05/17 23:41 Active Vital Signs [RC] Q4H Care 05/05/17 23:41 Active Acetaminophen [Tylenol] Med 05/06/17 01:08 Active 650 mg PO BID Albuterol/Ipratropium [DuoNeb 3.0-0.5 MG/3 ML] Med 05/05/17 23:45 Active 3 ml NEB Q6HRRT Cefepime [Maxipime in D5W 2 GM/50 ML] 2 gm Med 05/06/17 08:15 Active Premix Bag 1 bag IV Q12H DULoxetine [Cymbalta] Med 05/06/17 09:00 Ordered 30 mg PO DAILY Dextromethorphan/guaiFENesin [Robitussin DM] Med 05/06/17 05:00 Active 5 ml PO Q4H Levofloxacin/Dextrose 5%-Water [Levaquin in D5W 750 MG/ Med 05/05/17 23:45 Active 150 ML] 750 mg Premix Bag 1 bag IV Q48H Metoprolol Succinate [Toprol XL] Med 05/06/17 09:00 Ordered 50 mg PO DAILY traMADol [Ultram] Med 05/06/17 00:29 Active 50 mg PO BID Sequential Compression Device [OM.PC] Per Unit Routine Oth 05/05/17 23:42 Ordered Resuscitation Status Routine Resus Stat 05/05/17 23:41 Ordered Medication Orders Acetaminophen (Tylenol) 650 mg PO BID [facility] Last Admin: 05/06/17 01:16 Dose: 650 mg Albuterol/Ipratropium (Duoneb 3.0-0.5 Mg/3 Ml) 3 ml NEB Q6HRRT [facility] Last Admin: 05/06/17 06:27 Dose: 3 ml Admin: 05/06/17 00:33 Dose: Admin: 05/06/17 00:14 Dose: 3 ml Duloxetine HCl (Cymbalta) 30 mg PO DAILY [facility] Guaifenesin/Dextromethorphan (Robitussin Dm) 5 ml PO Q4H [facility] Last Admin: 05/06/17 05:14 Dose: 5 ml Levofloxacin/Dextrose 750 mg/ (Premix) 150 mls @ 100 mls/hr IV Q48H [facility] Last Admin: 05/06/17 00:27 Dose: 100 mls/hr Cefepime HCl 2 gm/ Premix 50 mls @ 100 mls/hr IV Q12H [facility] Metoprolol Succinate (Toprol Xl) 50 mg PO DAILY [facility] Tramadol HCl (Ultram) 50 mg PO BID [facility] Last Admin: 05/06/17 00:50 Dose: 50 mg Assessment/Plan Comment:: This 86 juana old female admitted with possible pneumonia and possible gram negative infection 1. Gram negative roby bacteremia: 4/ BC positive for gram negative rods. Source unclear, possible pneumonia vs line infection. Will also obtain UA. Plan to remove PICC and culture tip. Continue with Cefepime and Levaquin at this time. Does not appear septic. Plan to repeat BC in a couple days to ensure clearing of infection and may need to replace PICC for IV therapy. 2. Pneumonia: Due to gram neg roby BC, will continue with only Cefepime and Levaquin. afebrile. Will continue oxygen and Duonebs. Flutter valve per RT and obtain sputum culture if possible. Continue Guaifenesin for cough. 3. Afib: Continue Metoprolol 4. Anemia: No bleeding noted, will monitor. 5. Thrombocytopenia: Continue to monitor, again no bleeding noted at this time. VTE prophylaxis: Will place on SCDs only for now due to anemia and thrombocytpenia. Dispo: 3-4 days pending improvement.
[2017-05-06] MEDS: DULoxetine 30 MG Cap PO SCH (08:58)
[2017-05-06] MEDS: Cefepime 2 GM in Premix Bag 1 BAG IV SCH ×2 (08:58→21:15)
[2017-05-06] MEDS ORDERED: Enoxaparin 40 MG/0.4 ML Syringe SUBCUT SCH (09:00)
[2017-05-06] MEDS: Metoprolol Succinate 50 MG Tab.ER PO SCH (09:06)
[2017-05-06] MEDS ORDERED: Albuterol 0.083% 2.5 MG/3 ML Neb Soln NEB PRN (12:38)
[2017-05-06] MEDS: predniSONE 10 MG Tab PO SCH (13:05)
[2017-05-06] MEDS ORDERED: Magnesium Sulfate/Water 4 GM in Premix Bag 1 BAG IV ONE (13:44)
--- NOTE | 2017-05-06 18:09 | CR ---
EXAM DATE: 05/05/17 PATIENT'S AGE: 86 Patient: JAIME ANN Facility: [place], [place] Site . Site : [id number] Study: XRay Chest [id number] 9:02:58 PM Ordering Physician: Doctor Molina Final Report: CHEST 2 VIEWS INDICATION: Short of breath. COMPARISON: 03/25/2017. IMPRESSION: No overall change PICC line in stable position mid SVC. Stable small effusions. No new focal pulmonary opacities. The heart is stable in size. 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 Dictated by Ben Guerrero MD @ May 05 2017 9:05PM (Electronic Signature) Report Signed by Proxy. ARIA
[2017-05-06] MEDS: Temazepam 15 MG Cap PO PRN (21:34)
[2017-05-07] MEDS: guaiFENesin/Dextromethorphan 100-10 MG/5 ML Soln 10 ML Cup PO SCH ×6 (01:16→21:23)
[2017-05-07] MEDS: Albuterol/Ipratropium 3.0-0.5 MG/3 ML Neb Soln NEB SCH ×6 (02:10→21:47)
[2017-05-07 06:39] LABS: CHLORIDE,CL 109 mmol/L (98-110); SODIUM,NA 139 mmol/L (136-146)
[2017-05-07] MEDS: Acetaminophen 325 MG Tab PO SCH ×2 (09:54→21:23)
[2017-05-07] MEDS: traMADol 50 MG Tab PO SCH ×2 (09:55→21:23)
--- NOTE | 2017-05-07 09:56 | PCM.PN ---
- General Info Date of Service: 05/07/17 Admission Dx/Problem (Free Text): Admission Diagnosis/Problem Admission Diagnosis/Problem Shortness of breath Subjective Update: Sitting up in the chair today, continues to have cough and appears tired. She reports sleeping well last night. Denies any pain currently, no chest pain, no SOB. Continues to have cough. Functional Status: Reports: Pain Controlled, Tolerating Diet, Ambulating, Urinating - Review of Systems HEENT: Reports: Sinus Congestion. Denies: Headaches, Visual Changes Pulmonary: Reports: Cough, Sputum, Wheezing Cardiovascular: Denies: Chest Pain, Palpitations, Edema Gastrointestinal: Reports: No Symptoms. Denies: Abdominal Pain, Nausea, Vomiting 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: Reports: No Symptoms. Denies: Dysuria, Frequency, Burning Neurological: Reports: No Symptoms. Denies: Confusion Psychiatric: Reports: No Symptoms. Denies: Confusion - Patient Data Vitals - Most Recent: Last Vital Signs Temp 97.6 F 05/07/17 04:00 Pulse 83 05/07/17 04:00 Resp 20 05/07/17 04:00 BP 126/63 05/07/17 04:00 Pulse Ox 97 05/07/17 04:00 Weight - Most Recent: 41.867 kg I&O - Last 24 Hours: Intake & Output 05/06/17 05/07/17 05/07/17 22:59 06:59 14:59 Intake Total 500 200 Output Total 300 300 Balance 200 -100 Lab Results Last 24 Hours: Laboratory Results - last 24 hr 05/06/17 05/06/17 05/07/17 Range/Units 05:35 20:50 06:10 WBC 38.10 H (4.0-11.0) K/uL RBC 2.35 L (4.30-5.90) M/uL Hgb 7.9 L (12.0-16.0) g/dL Hct 23.5 L (36.0-46.0) % MCV 100.0 H (80.0-98.0) fL MCH 33.6 H (27.0-32.0) pg MCHC 33.6 (31.0-37.0) g/dL RDW Std Deviation 63.4 H (28.0-62.0) fl RDW Coeff of Monica 17 H (11.0-15.0) % Plt Count 21 L (150-400) K/uL Add Manual Diff YES Neutrophils % (Manual) 92 H (48.0-80.0) % Band Neutrophils % 6 % Lymphocytes % (Manual) 2 L (16.0-40.0) % Nucleated RBC % 0.0 /100WBC Absolute Seg Neuts 35.1 H (1.4-5.7) Band Neutrophils # 2.3 Lymphocytes # (Manual) 0.8 (0.6-2.4) Nucleated RBCs # 0 K/uL Sodium (136-146) mmol/L Potassium (3.5-5.1) mmol/L Chloride (98-110) mmol/L Carbon Dioxide (21-31) mmol/L BUN (6.0-23.0) mg/dL Creatinine (0.6-1.5) mg/dL Est Cr Clr Drug Dosing mL/min Estimated GFR (MDRD) ml/min Glucose (60-110) mg/dL Calcium (8.8-10.8) mg/dL Magnesium 1.3 L (1.5-2.3) mEq/L Urine Color YELLOW Urine Appearance SLT CLOUDY Urine pH 5.0 (5.0-8.0) Ur Specific Crawford >= 1.030 (1.001-1.035) Urine Protein NEGATIVE (NEGATIVE) mg/dL Urine Glucose (UA) NEGATIVE (NEGATIVE) mg/dL Urine Ketones NEGATIVE (NEGATIVE) mg/dL Urine Occult Blood TRACE-INTACT (NEGATIVE) Urine Nitrite NEGATIVE (NEGATIVE) Urine Bilirubin NEGATIVE (NEGATIVE) Urine Urobilinogen 0.2 (<2.0) EU/dL Ur Leukocyte Esterase SMALL (NEGATIVE) Urine RBC 0-2 (0-2/HPF) Urine WBC 30-35 (0-5/HPF) Ur Epithelial Cells FEW (NONE-FEW) Urine Bacteria FEW (NEGATIVE) Hyaline Casts 5-7 (0-2/LPF) 05/07/17 Range/Units 06:10 WBC (4.0-11.0) K/uL RBC (4.30-5.90) M/uL Hgb (12.0-16.0) g/dL Hct (36.0-46.0) % MCV (80.0-98.0) fL MCH (27.0-32.0) pg MCHC (31.0-37.0) g/dL RDW Std Deviation (28.0-62.0) fl RDW Coeff of Monica (11.0-15.0) % Plt Count (150-400) K/uL Add Manual Diff Neutrophils % (Manual) (48.0-80.0) % Band Neutrophils % % Lymphocytes % (Manual) (16.0-40.0) % Nucleated RBC % /100WBC Absolute Seg Neuts (1.4-5.7) Band Neutrophils # Lymphocytes # (Manual) (0.6-2.4) Nucleated RBCs # K/uL Sodium 139 (136-146) mmol/L Potassium 4.4 (3.5-5.1) mmol/L Chloride 109 (98-110) mmol/L Carbon Dioxide 22 (21-31) mmol/L BUN 17 (6.0-23.0) mg/dL Creatinine 0.6 (0.6-1.5) mg/dL Est Cr Clr Drug Dosing 42.83 mL/min Estimated GFR (MDRD) > 60.0 ml/min Glucose 108 (60-110) mg/dL Calcium 8.3 L (8.8-10.8) mg/dL Magnesium 2.4 H (1.5-2.3) mEq/L Urine Color Urine Appearance Urine pH (5.0-8.0) Ur Specific Crawford (1.001-1.035) Urine Protein (NEGATIVE) mg/dL Urine Glucose (UA) (NEGATIVE) mg/dL Urine Ketones (NEGATIVE) mg/dL Urine Occult Blood (NEGATIVE) Urine Nitrite (NEGATIVE) Urine Bilirubin (NEGATIVE) Urine Urobilinogen (<2.0) EU/dL Ur Leukocyte Esterase (NEGATIVE) Urine RBC (0-2/HPF) Urine WBC (0-5/HPF) Ur Epithelial Cells (NONE-FEW) Urine Bacteria (NEGATIVE) Hyaline Casts (0-2/LPF) Med Orders - Current: Current Medications Acetaminophen (Tylenol) 650 mg PO BID [facility] Last Admin: 05/06/17 21:30 Dose: 650 mg Albuterol (Proventil Neb Soln) 2.5 mg NEB Q2HR PRN PRN Reason: SOB/wheezing Albuterol/Ipratropium (Duoneb 3.0-0.5 Mg/3 Ml) 3 ml NEB Q4HRRT [facility] Last Admin: 05/07/17 06:22 Dose: 3 ml Duloxetine HCl (Cymbalta) 30 mg PO DAILY [facility] Last Admin: 05/06/17 08:58 Dose: 30 mg Guaifenesin/Dextromethorphan (Robitussin Dm) 5 ml PO Q4H [facility] Last Admin: 05/07/17 05:40 Dose: 5 ml Levofloxacin/Dextrose 750 mg/ (Premix) 150 mls @ 100 mls/hr IV Q48H [facility] Last Admin: 05/06/17 00:27 Dose: 100 mls/hr Cefepime HCl 2 gm/ Premix 50 mls @ 100 mls/hr IV Q12H [facility] Last Infusion: 05/06/17 21:45 Dose: Infused Metoprolol Succinate (Toprol Xl) 50 mg PO DAILY [facility] Last Admin: 05/06/17 09:06 Dose: 50 mg Temazepam (Restoril) 15 mg PO BEDTIME PRN PRN Reason: Insomnia Last Admin: 05/06/17 21:34 Dose: 15 mg Tramadol HCl (Ultram) 50 mg PO BID [facility] Last Admin: 05/06/17 21:30 Dose: 50 mg Discontinued Medications Albuterol (Proventil Neb Soln) 2.5 mg NEB ONETIME ONE Stop: 05/05/17 20:05 Last Admin: 05/05/17 20:25 Dose: 2.5 mg Albuterol/Ipratropium (Duoneb 3.0-0.5 Mg/3 Ml) 3 ml NEB Q6HRRT [facility] Last Admin: 05/06/17 21:45 Dose: 3 ml Guaifenesin/Dextromethorphan (Q-Tussin Dm) 5 ml PO Q4H [facility] Last Admin: 05/06/17 05:00 Dose: Not Given Cefepime HCl 1 gm/ Premix 50 mls @ 100 mls/hr IV Q8H [facility] Last Admin: 05/06/17 12:06 Dose: Not Given Magnesium Sulfate 4 gm/ Premix 100 mls @ 50 mls/hr IV ONETIME ONE Stop: 05/06/17 15:43 Last Admin: 05/06/17 14:58 Dose: 50 mls/hr Non-Formulary Medication (Acetaminophen) 650 mg PO BID [facility] Last Admin: 05/06/17 02:23 Dose: Not Given Prednisone (Prednisone) 50 mg PO WITHBREAKFAST [facility] Last Admin: 05/06/17 13:05 Dose: 50 mg - Exam Quality Assessment: Supplemental Oxygen, DVT Prophylaxis General: Alert, Oriented, Cooperative, No Acute Distress Neck: Supple Lungs: Rhonchi Cardiovascular: Regular Rate, Regular Rhythm, No Murmurs GI/Abdominal Exam: Normal Bowel Sounds, Soft, Non-Tender, No Organomegaly, No Distention, No Abnormal Bruit, No Mass, Pelvis Stable Extremities: Normal Inspection, Normal Range of Motion, Non-Tender, No Pedal Edema, Normal Capillary Refill Neurological: No New Focal Deficit Psy/Mental Status: Alert, Normal Affect, Normal Mood - Problem List & Annotations (1) Gram-negative bacteremia SNOMED Code(s): 549739607931 Code(s): R78.81 - BACTEREMIA Status: Acute Current Visit: Yes (2) Pneumonia SNOMED Code(s): 811645670 Code(s): J18.9 - PNEUMONIA, UNSPECIFIED ORGANISM Status: Acute Current Visit: No Qualifiers: Pneumonia type: due to unspecified organism Laterality: unspecified laterality Lung location: unspecified part of lung Qualified Code(s): J18.9 - Pneumonia, unspecified organism (3) SOB (shortness of breath) SNOMED Code(s): 661406343 Code(s): R06.02 - SHORTNESS OF BREATH Status: Acute Current Visit: Yes (4) Anemia SNOMED Code(s): 570162478 Code(s): D64.9 - ANEMIA, UNSPECIFIED Status: Chronic Current Visit: Yes Qualifiers: Anemia type: other cause Other causes of anemia: antineoplastic chemotherapy Qualified Code(s): D64.81 - Anemia due to antineoplastic chemotherapy; T45.1X5A - Adverse effect of antineoplastic and immunosuppressive drugs, initial encounter; T45.1X5A - Adverse effect of antineoplastic and immunosuppressive drugs, initial encounter (5) Thrombocytopenia SNOMED Code(s): 084529163 Code(s): D69.6 - THROMBOCYTOPENIA, UNSPECIFIED Status: Acute Current Visit: No (6) Lymphoma SNOMED Code(s): 607414822 Code(s): C85.90 - NON-HODGKIN LYMPHOMA, UNSPECIFIED, UNSPECIFIED SITE Status: Chronic Current Visit: No Qualifiers: 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 - Problem List Review Problem List Initiated/Reviewed/Updated: Yes - My Orders Last 24 Hours: My Active Orders 05/06/17 09:00 DULoxetine [Cymbalta] 30 mg PO DAILY Metoprolol Succinate [Toprol XL] 50 mg PO DAILY 05/06/17 10:44 CULTURE SPUTUM + SMEAR [RM] Routine Central Line PICC Discontinue [OM.PC] Routine RT Flutter Valve Therapy [RT Acapella] [RESPCARE] Routine 05/06/17 10:48 Albuterol/Ipratropium [DuoNeb 3.0-0.5 MG/3 ML] 3 ml NEB Q4HRRT 05/06/17 12:38 RT Aerosol Therapy [RC] ASDIRECTED Albuterol [Proventil Neb Soln] 2.5 mg NEB Q2HR PRN 05/06/17 14:20 CULTURE CATHETER TIP [RM] Routine 05/08/17 05:00 BASIC METABOLIC PANEL,BMP [CHEM] DAILY CBC WITH AUTO DIFF [HEME] DAILY MAGNESIUM [CHEM] DAILY 05/09/17 05:00 BASIC METABOLIC PANEL,BMP [CHEM] DAILY CBC WITH AUTO DIFF [HEME] DAILY MAGNESIUM [CHEM] DAILY 05/10/17 05:00 BASIC METABOLIC PANEL,BMP [CHEM] DAILY CBC WITH AUTO DIFF [HEME] DAILY MAGNESIUM [CHEM] DAILY - Plan Plan:: This 86 juana old female admitted with possible pneumonia and possible gram negative infection 1. Gram negative roby bacteremia: 3/4 BC positive for gram negative rods BERTHA still pending. Source unclear, possible pneumonia vs line infection. PICC removed and culture of tip is pending. Continue with Cefepime and Levaquin at this time. UA reveals pyuria, will add UC. Will repeat BC today to ensure clearing. 2. Pneumonia: Cough continues and still needs oxygen. Due to gram neg roby BC, will continue with only Cefepime and Levaquin. afebrile. Will continue oxygen and Duonebs. Flutter valve per RT and obtain sputum culture if possible. Continue Guaifenesin for cough. Will also add tessalon perles today for cough. 3. Afib: Continue Metoprolol, well controlled. Magnesium 2.4 today. 4. Anemia: No bleeding noted, will monitor. Hgb 7.9 today. 5. Thrombocytopenia: Continue to monitor, again no bleeding noted at this time. Plt lower today at 21, will monitor. FALL RISK due to weakness and anemia and thrombocytopenia. Monitor closely when up ambulating VTE prophylaxis: Will place on SCDs only for now due to anemia and thrombocytpenia. Dispo: 3-4 days pending improvement. This morning I did attempt to speak with patient, daughter, Brissa, and son Ronal regarding code status. Brissa and Mary Kay were very dismissive with the talk and did not want to discuss much. Ronal understood and felt as though his mother wouldn't want to go through the process of a code. They will further discuss this matter within the family and let us know regarding any changes. I discussed the nature of a code and Mary Kay's fraility and how she may not survive the actual code itself, but by being DNR her treatment plan would be no different and we would continue treating her as is now.
[2017-05-07] MEDS: DULoxetine 30 MG Cap PO SCH (09:57)
[2017-05-07] MEDS: Metoprolol Succinate 50 MG Tab.ER PO SCH (09:58)
[2017-05-07] MEDS: Cefepime 2 GM in Premix Bag 1 BAG IV SCH ×2 (10:19→21:15)
[2017-05-07] MEDS: predniSONE 10 MG Tab PO SCH (10:21)
[2017-05-07] MEDS: Benzonatate 100 MG Cap PO PRN ×2 (12:30→23:18)
[2017-05-07] MEDS: Levofloxacin/Dextrose 5%-Water 750 MG in Premix Bag 1 BAG IV SCH (23:12)
[2017-05-07] MEDS: Temazepam 15 MG Cap PO PRN (23:17)
[2017-05-08] MEDS: Albuterol/Ipratropium 3.0-0.5 MG/3 ML Neb Soln NEB SCH ×7 (00:47→21:36)
[2017-05-08] MEDS: guaiFENesin/Dextromethorphan 100-10 MG/5 ML Soln 10 ML Cup PO SCH ×6 (01:04→20:07)
[2017-05-08] MEDS ORDERED: methylPREDNISolone Sodium Succinate 1,000 MG/8 ML SDV IV ONE (01:19)
[2017-05-08] MEDS ORDERED: methylPREDNISolone Sodium Succinate 125 MG/2 ML SDV IV ONE (01:30)
[2017-05-08 06:36] LABS: CHLORIDE,CL 110 mmol/L (98-110); SODIUM,NA 139 mmol/L (136-146)
--- NOTE | 2017-05-08 09:04 | PCM.PN ---
- General Info Date of Service: 05/08/17 Admission Dx/Problem (Free Text): Admission Diagnosis/Problem Admission Diagnosis/Problem Shortness of breath Subjective Update: Lying in bed, continues to have cough with rattling breath sounds. Denies any pain, doesn't necessarily feel SOB. Eating some and drinking as well. Kalpana, daughter and son at bedside. Functional Status: Reports: Pain Controlled, Tolerating Diet, Ambulating, Urinating - Review of Systems General: Reports: Weakness, Fatigue, Malaise HEENT: Reports: No Symptoms Pulmonary: Reports: Cough. Denies: Sputum Cardiovascular: Reports: Edema. Denies: Chest Pain, Palpitations Gastrointestinal: Reports: No Symptoms. Denies: Abdominal Pain, Nausea, Vomiting Skin: Reports: No Symptoms. Denies: Cyanosis Neurological: Reports: No Symptoms. Denies: Confusion Psychiatric: Reports: No Symptoms. Denies: Confusion - Patient Data Vitals - Most Recent: Last Vital Signs Temp 98.6 F 05/08/17 08:00 Pulse 102 H 05/08/17 08:00 Resp 22 H 05/08/17 08:00 BP 139/84 05/08/17 08:00 Pulse Ox 93 L 05/08/17 08:00 Weight - Most Recent: 41.867 kg I&O - Last 24 Hours: Intake & Output 05/07/17 05/08/17 05/08/17 22:59 06:59 14:59 Intake Total 740 550 Output Total 675 600 Balance 65 -50 Lab Results Last 24 Hours: Laboratory Results - last 24 hr 05/08/17 05/08/17 Range/Units 06:05 06:12 WBC 8.09 (4.0-11.0) K/uL RBC 2.30 L (4.30-5.90) M/uL Hgb 7.6 L (12.0-16.0) g/dL Hct 23.2 L (36.0-46.0) % MCV 100.9 H (80.0-98.0) fL MCH 33.0 H (27.0-32.0) pg MCHC 32.8 (31.0-37.0) g/dL RDW Std Deviation 64.0 H (28.0-62.0) fl RDW Coeff of Monica 17 H (11.0-15.0) % Plt Count 18 L (150-400) K/uL Add Manual Diff YES Neutrophils % (Manual) 89 H (48.0-80.0) % Band Neutrophils % 10 % Lymphocytes % (Manual) 1 L (16.0-40.0) % Nucleated RBC % 0.0 /100WBC Absolute Seg Neuts 7.2 H (1.4-5.7) Band Neutrophils # 0.8 Lymphocytes # (Manual) 0.1 L (0.6-2.4) Nucleated RBCs # 0 K/uL Sodium 139 (136-146) mmol/L Potassium 4.3 (3.5-5.1) mmol/L Chloride 110 (98-110) mmol/L Carbon Dioxide 21 (21-31) mmol/L BUN 14 (6.0-23.0) mg/dL Creatinine 0.6 (0.6-1.5) mg/dL Est Cr Clr Drug Dosing 42.83 mL/min Estimated GFR (MDRD) > 60.0 ml/min Glucose 129 H (60-110) mg/dL Calcium 7.8 L (8.8-10.8) mg/dL Magnesium 1.9 (1.5-2.3) mEq/L Med Orders - Current: Current Medications Acetaminophen (Tylenol) 650 mg PO BID [facility] Last Admin: 05/07/17 21:23 Dose: 650 mg Albuterol (Proventil Neb Soln) 2.5 mg NEB Q2HR PRN PRN Reason: SOB/wheezing Last Admin: 05/08/17 00:26 Dose: 2.5 mg Albuterol/Ipratropium (Duoneb 3.0-0.5 Mg/3 Ml) 3 ml NEB Q4HRRT [facility] Last Admin: 05/08/17 06:18 Dose: 3 ml Benzonatate (Tessalon Perles) 200 mg PO TID PRN PRN Reason: Cough Last Admin: 05/07/17 23:18 Dose: 200 mg Duloxetine HCl (Cymbalta) 30 mg PO DAILY [facility] Last Admin: 05/07/17 09:57 Dose: 30 mg Guaifenesin/Dextromethorphan (Robitussin Dm) 5 ml PO Q4H [facility] Last Admin: 05/08/17 05:51 Dose: 5 ml Levofloxacin/Dextrose 750 mg/ (Premix) 150 mls @ 100 mls/hr IV Q48H [facility] Last Infusion: 05/08/17 00:42 Dose: Infused Cefepime HCl 2 gm/ Premix 50 mls @ 100 mls/hr IV Q12H [facility] Last Infusion: 05/07/17 21:45 Dose: Infused Vancomycin HCl 500 mg/ Sodium (Chloride) 100 mls @ 100 mls/hr IV Q12H [facility] Metoprolol Succinate (Toprol Xl) 50 mg PO DAILY [facility] Last Admin: 05/07/17 09:58 Dose: 50 mg Temazepam (Restoril) 15 mg PO BEDTIME PRN PRN Reason: Insomnia Last Admin: 05/07/17 23:17 Dose: 15 mg Tramadol HCl (Ultram) 50 mg PO BID [facility] Last Admin: 05/07/17 21:23 Dose: 50 mg Vancomycin HCl (Pharmacy To Dose - Vancomycin) 1 dose .XX ASDIRECTED [facility] Discontinued Medications Albuterol (Proventil Neb Soln) 2.5 mg NEB ONETIME ONE Stop: 05/05/17 20:05 Last Admin: 05/05/17 20:25 Dose: 2.5 mg Albuterol/Ipratropium (Duoneb 3.0-0.5 Mg/3 Ml) 3 ml NEB Q6HRRT [facility] Last Admin: 05/06/17 21:45 Dose: 3 ml Guaifenesin/Dextromethorphan (Q-Tussin Dm) 5 ml PO Q4H [facility] Last Admin: 05/06/17 05:00 Dose: Not Given Cefepime HCl 1 gm/ Premix 50 mls @ 100 mls/hr IV Q8H [facility] Last Admin: 05/06/17 12:06 Dose: Not Given Magnesium Sulfate 4 gm/ Premix 100 mls @ 50 mls/hr IV ONETIME ONE Stop: 05/06/17 15:43 Last Admin: 05/06/17 14:58 Dose: 50 mls/hr Methylprednisolone Sodium Succinate (Solu-Medrol) 125 mg IV ONETIME ONE Stop: 05/08/17 01:20 Methylprednisolone Sodium Succinate (Solu-Medrol) 125 mg IV ONETIME ONE Stop: 05/08/17 01:31 Last Admin: 05/08/17 01:32 Dose: 125 mg Non-Formulary Medication (Acetaminophen) 650 mg PO BID [facility] Last Admin: 05/06/17 02:23 Dose: Not Given Prednisone (Prednisone) 50 mg PO WITHBREAKFAST [facility] Last Admin: 05/07/17 10:21 Dose: Not Given - Exam General: Alert, Oriented, Other (apperas cachectic and tired. ) Neck: Supple Lungs: Rhonchi (throughout), Other (cough is very weak and congested, but non productive.). No: Normal Respiratory Effort (labored intermittently) Cardiovascular: Regular Rate, Regular Rhythm, No Murmurs GI/Abdominal Exam: Normal Bowel Sounds, Soft, Non-Tender, No Organomegaly, No Distention, No Abnormal Bruit, No Mass, Pelvis Stable Extremities: Normal Range of Motion, Non-Tender, Pedal Edema (+1 pitting edema) Wound/Incisions: Other (red areas to spine, no open areas, but likely due to pressure from lying down) Neurological: No New Focal Deficit Psy/Mental Status: Alert, Normal Affect, Normal Mood - Problem List & Annotations (1) Gram-negative bacteremia SNOMED Code(s): 985845892585 Code(s): R78.81 - BACTEREMIA Status: Acute Current Visit: Yes (2) Pneumonia SNOMED Code(s): 115165874 Code(s): J18.9 - PNEUMONIA, UNSPECIFIED ORGANISM Status: Acute Current Visit: No Qualifiers: Pneumonia type: due to unspecified organism Laterality: unspecified laterality Lung location: unspecified part of lung Qualified Code(s): J18.9 - Pneumonia, unspecified organism (3) SOB (shortness of breath) SNOMED Code(s): 065677315 Code(s): R06.02 - SHORTNESS OF BREATH Status: Acute Current Visit: Yes (4) Anemia SNOMED Code(s): 751893057 Code(s): D64.9 - ANEMIA, UNSPECIFIED Status: Chronic Current Visit: Yes Qualifiers: Anemia type: other cause Other causes of anemia: antineoplastic chemotherapy Qualified Code(s): D64.81 - Anemia due to antineoplastic chemotherapy; T45.1X5A - Adverse effect of antineoplastic and immunosuppressive drugs, initial encounter; T45.1X5A - Adverse effect of antineoplastic and immunosuppressive drugs, initial encounter (5) Thrombocytopenia SNOMED Code(s): 553244180 Code(s): D69.6 - THROMBOCYTOPENIA, UNSPECIFIED Status: Acute Current Visit: No (6) Lymphoma SNOMED Code(s): 784765155 Code(s): C85.90 - NON-HODGKIN LYMPHOMA, UNSPECIFIED, UNSPECIFIED SITE Status: Chronic Current Visit: No Qualifiers: 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 - Problem List Review Problem List Initiated/Reviewed/Updated: Yes - My Orders Last 24 Hours: My Active Orders 05/07/17 10:58 Benzonatate [Tessalon Perles] 200 mg PO TID PRN 05/08/17 07:47 Blood Culture x2 Reflex Set [OM.PC] Stat 05/08/17 08:00 CULTURE BLOOD [BC] Stat 05/08/17 08:11 CULTURE BLOOD [BC] Stat 05/08/17 08:42 Chest 1V Frontal [CR] Routine 05/08/17 09:00 Vancomycin Pharmacy to Dose [Pharmacy to Dose - Vancomycin] 1 dose .XX ASDIRECTED 05/09/17 05:00 BASIC METABOLIC PANEL,BMP [CHEM] DAILY CBC WITH AUTO DIFF [HEME] DAILY MAGNESIUM [CHEM] DAILY 05/10/17 05:00 BASIC METABOLIC PANEL,BMP [CHEM] DAILY CBC WITH AUTO DIFF [HEME] DAILY MAGNESIUM [CHEM] DAILY - Plan Plan:: This 86 juana old female admitted with possible pneumonia and gram negative infection 1. Gram negative roby bacteremia: 3/4 BC positive for E coli, continue Cefepime and Levaquin. UC and PICC line tip culture still pending. No sputum. 2. Pneumonia: Cough continues and oxygen needs increasing. CXR this morning shows atelectasis vs infiltrate bibasilar and trace pleural effusions. Had slight temperature last night, does not appear to be improving, will add Vancomycin due to immunocompromised state, also continue Cefepime and Levaquin. Will continue oxygen and Duonebs. Flutter valve per RT and obtain sputum culture if possible. Encourage IS use as well. 3. Afib: Continue Metoprolol, well controlled. 4. Anemia: No bleeding noted, will monitor. Hgb 7.6 today. 5. Thrombocytopenia: Continue to monitor, again no bleeding noted at this time. Plt lower today at 18, will monitor. Likely reached reji. VTE prophylaxis: Will place on SCDs only for now due to anemia and thrombocytpenia. Dispo: 3-4 days pending improvement.
--- NOTE | 2017-05-08 10:11 | CR ---
EXAMINATION: Portable chest radiograph. HISTORY: Cough. FINDINGS: The trachea is midline. The heart is borderline in size. Mild bibasilar atelectasis and/or infiltrate . Trace bilateral pleural effusions. Chronic interstitial prominence is noted. 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 IMPRESSION: 1. Mild left basilar atelectasis and/or infiltrate with trace bilateral pleural effusions.
[2017-05-08] MEDS: Acetaminophen 325 MG Tab PO SCH ×2 (10:19→20:07)
[2017-05-08] MEDS: traMADol 50 MG Tab PO SCH ×2 (10:19→20:06)
[2017-05-08] MEDS: DULoxetine 30 MG Cap PO SCH (10:20)
[2017-05-08] MEDS: Metoprolol Succinate 50 MG Tab.ER PO SCH (10:21)
[2017-05-08] MEDS: Cefepime 2 GM in Premix Bag 1 BAG IV SCH ×2 (10:25→20:12)
[2017-05-08] MEDS: Temazepam 15 MG Cap PO PRN (23:14)
[2017-05-09] MEDS: guaiFENesin/Dextromethorphan 100-10 MG/5 ML Soln 10 ML Cup PO SCH ×7 (02:24→20:06)
[2017-05-09] MEDS: Albuterol/Ipratropium 3.0-0.5 MG/3 ML Neb Soln NEB SCH ×6 (02:24→21:41)
[2017-05-09 07:06] LABS: CHLORIDE,CL 114 mmol/L (98-110); SODIUM,NA 142 mmol/L (136-146)
[2017-05-09] MEDS: Cefepime 2 GM in Premix Bag 1 BAG IV SCH ×2 (08:11→21:38)
[2017-05-09] MEDS: Acetaminophen 325 MG Tab PO SCH ×2 (08:11→20:06)
[2017-05-09] MEDS: DULoxetine 30 MG Cap PO SCH (08:14)
[2017-05-09] MEDS: traMADol 50 MG Tab PO SCH ×2 (08:15→20:08)
[2017-05-09] MEDS: Metoprolol Succinate 50 MG Tab.ER PO SCH (08:29)
--- NOTE | 2017-05-09 09:38 | PCM.PN ---
- General Info Date of Service: 05/09/17 Admission Dx/Problem (Free Text): Admission Diagnosis/Problem Admission Diagnosis/Problem Shortness of breath Subjective Update: Looking slightly better today, cough is improving as well as SOB. Needing 3-4 L NC. NO chest pain or palpitations. No abdominal pain or urinary symptoms. Functional Status: Reports: Pain Controlled, Tolerating Diet, Ambulating, Urinating - Review of Systems General: Denies: Fever HEENT: Denies: Sore Throat Pulmonary: Reports: Shortness of Breath (intermittently, but improving.), Cough. Denies: Pleuritic Chest Pain, Hemoptysis, Wheezing Cardiovascular: Reports: Edema (BLE). Denies: Chest Pain, Palpitations Gastrointestinal: Reports: No Symptoms. Denies: Abdominal Pain, Diarrhea, Nausea, Vomiting 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: Reports: No Symptoms. Denies: Dysuria, Frequency, Burning, Pain Skin: Reports: No Symptoms Neurological: Reports: No Symptoms Psychiatric: Reports: No Symptoms - Patient Data Vitals - Most Recent: Last Vital Signs Temp 97.4 F 05/09/17 08:00 Pulse 98 05/09/17 08:29 Resp 22 H 05/09/17 08:00 BP 165/94 H 05/09/17 08:29 Pulse Ox 93 L 05/09/17 08:00 Weight - Most Recent: 41.867 kg I&O - Last 24 Hours: Intake & Output 05/08/17 05/09/17 05/09/17 22:59 06:59 14:59 Intake Total 650 600 Output Total 500 550 Balance 150 50 Lab Results Last 24 Hours: Laboratory Results - last 24 hr 05/09/17 05/09/17 Range/Units 06:14 06:14 WBC 1.00 L (4.0-11.0) K/uL RBC 2.07 L (4.30-5.90) M/uL Hgb 6.8 L (12.0-16.0) g/dL Hct 21.0 L (36.0-46.0) % MCV 101.4 H (80.0-98.0) fL MCH 32.9 H (27.0-32.0) pg MCHC 32.4 (31.0-37.0) g/dL RDW Std Deviation 64.5 H (28.0-62.0) fl RDW Coeff of Monica 17 H (11.0-15.0) % Plt Count 23 L (150-400) K/uL Add Manual Diff YES Neutrophils % (Manual) 39 L (48.0-80.0) % Band Neutrophils % 8 % Lymphocytes % (Manual) 44 H (16.0-40.0) % Monocytes % (Manual) 7 (0.0-15.0) % Eosinophils % (Manual) 2 (0.0-7.0) % Nucleated RBC % 0.0 /100WBC Absolute Seg Neuts 0.4 L (1.4-5.7) Band Neutrophils # 0.1 Lymphocytes # (Manual) 0.4 L (0.6-2.4) Monocytes # (Manual) 0.1 (0.0-0.8) Eosinophils # (Manual) 0.0 (0.0-0.7) Nucleated RBCs # 0 K/uL Sodium 142 (136-146) mmol/L Potassium 4.2 (3.5-5.1) mmol/L Chloride 114 H (98-110) mmol/L Carbon Dioxide 24 (21-31) mmol/L BUN 13 (6.0-23.0) mg/dL Creatinine 0.6 (0.6-1.5) mg/dL Est Cr Clr Drug Dosing 42.83 mL/min Estimated GFR (MDRD) > 60.0 ml/min Glucose 84 (60-110) mg/dL Calcium 7.7 L (8.8-10.8) mg/dL Magnesium 1.9 (1.5-2.3) mEq/L Gilberto Results Last 24 Hours: Microbiology 05/08/17 10:00 Gram Stain - Final Sputum - Expectorated Sputum Culture - Preliminary YEAST 05/08/17 08:11 Aerobic Blood Culture - Preliminary Blood - Venous - Lab Draw NO GROWTH AFTER 1 DAY Anaerobic Blood Culture - Preliminary NO GROWTH AFTER 1 DAY 05/08/17 08:00 Aerobic Blood Culture - Preliminary Blood - Venous NO GROWTH AFTER 1 DAY Anaerobic Blood Culture - Preliminary NO GROWTH AFTER 1 DAY 05/06/17 14:20 Catheter Tip Culture - Final Catheter Tip Other - Central Line No Growth 05/06/17 20:50 Urine Culture - Final Urine, Clean Catch MIXED LUIS <1000 CFU/ML Med Orders - Current: Current Medications Acetaminophen (Tylenol) 650 mg PO BID CATIE Last Admin: 05/09/17 08:11 Dose: 650 mg Albuterol (Proventil Neb Soln) 2.5 mg NEB Q2HR PRN PRN Reason: SOB/wheezing Last Admin: 05/08/17 00:26 Dose: 2.5 mg Albuterol/Ipratropium (Duoneb 3.0-0.5 Mg/3 Ml) 3 ml NEB Q4HRRT [facility] Last Admin: 05/09/17 06:40 Dose: 3 ml Benzonatate (Tessalon Perles) 200 mg PO TID PRN PRN Reason: Cough Last Admin: 05/07/17 23:18 Dose: 200 mg Duloxetine HCl (Cymbalta) 30 mg PO DAILY [facility] Last Admin: 05/09/17 08:14 Dose: 30 mg Guaifenesin/Dextromethorphan (Robitussin Dm) 5 ml PO Q4H [facility] Last Admin: 05/09/17 08:25 Dose: Not Given Levofloxacin/Dextrose 750 mg/ (Premix) 150 mls @ 100 mls/hr IV Q48H [facility] Last Infusion: 05/08/17 00:42 Dose: Infused Cefepime HCl 2 gm/ Premix 50 mls @ 100 mls/hr IV Q12H [facility] Last Admin: 05/09/17 08:11 Dose: 100 mls/hr Vancomycin HCl 500 mg/ Sodium (Chloride) 100 mls @ 100 mls/hr IV Q12H [facility] Last Admin: 05/08/17 22:20 Dose: 100 mls/hr Metoprolol Succinate (Toprol Xl) 50 mg PO DAILY [facility] Last Admin: 05/09/17 08:29 Dose: 50 mg Temazepam (Restoril) 15 mg PO BEDTIME PRN PRN Reason: Insomnia Last Admin: 05/08/17 23:14 Dose: 15 mg Tramadol HCl (Ultram) 50 mg PO BID [facility] Last Admin: 05/09/17 08:15 Dose: 50 mg Vancomycin HCl (Pharmacy To Dose - Vancomycin) 1 dose .XX ASDIRECTED [facility] Discontinued Medications Albuterol (Proventil Neb Soln) 2.5 mg NEB ONETIME ONE Stop: 05/05/17 20:05 Last Admin: 05/05/17 20:25 Dose: 2.5 mg Albuterol/Ipratropium (Duoneb 3.0-0.5 Mg/3 Ml) 3 ml NEB Q6HRRT [facility] Last Admin: 05/06/17 21:45 Dose: 3 ml Guaifenesin/Dextromethorphan (Q-Tussin Dm) 5 ml PO Q4H [facility] Last Admin: 05/06/17 05:00 Dose: Not Given Cefepime HCl 1 gm/ Premix 50 mls @ 100 mls/hr IV Q8H [facility] Last Admin: 05/06/17 12:06 Dose: Not Given Magnesium Sulfate 4 gm/ Premix 100 mls @ 50 mls/hr IV ONETIME ONE Stop: 05/06/17 15:43 Last Admin: 05/06/17 14:58 Dose: 50 mls/hr Methylprednisolone Sodium Succinate (Solu-Medrol) 125 mg IV ONETIME ONE Stop: 05/08/17 01:20 Methylprednisolone Sodium Succinate (Solu-Medrol) 125 mg IV ONETIME ONE Stop: 05/08/17 01:31 Last Admin: 05/08/17 01:32 Dose: 125 mg Non-Formulary Medication (Acetaminophen) 650 mg PO BID [facility] Last Admin: 05/06/17 02:23 Dose: Not Given Prednisone (Prednisone) 50 mg PO WITHBREAKFAST [facility] Last Admin: 05/07/17 10:21 Dose: Not Given - Exam Quality Assessment: Supplemental Oxygen, DVT Prophylaxis (SCDs) General: Alert, Oriented, Cooperative, No Acute Distress Lungs: Rhonchi (R base, other lung sounds improved) Cardiovascular: Regular Rate, Regular Rhythm, No Murmurs GI/Abdominal Exam: Normal Bowel Sounds, Soft, Non-Tender, No Organomegaly, No Distention, No Abnormal Bruit, No Mass, Pelvis Stable Back Exam: Normal Inspection, Full Range of Motion Extremities: Normal Inspection, Normal Range of Motion, Pedal Edema (+1 pitting edema) Neurological: No New Focal Deficit Psy/Mental Status: Alert, Normal Affect, Normal Mood - Problem List & Annotations (1) Gram-negative bacteremia SNOMED Code(s): 320681999272 Code(s): R78.81 - BACTEREMIA Status: Acute Current Visit: Yes (2) Pneumonia SNOMED Code(s): 553526600 Code(s): J18.9 - PNEUMONIA, UNSPECIFIED ORGANISM Status: Acute Current Visit: No Qualifiers: Pneumonia type: due to unspecified organism Laterality: unspecified laterality Lung location: unspecified part of lung Qualified Code(s): J18.9 - Pneumonia, unspecified organism (3) SOB (shortness of breath) SNOMED Code(s): 760114431 Code(s): R06.02 - SHORTNESS OF BREATH Status: Acute Current Visit: Yes (4) Anemia SNOMED Code(s): 676009985 Code(s): D64.9 - ANEMIA, UNSPECIFIED Status: Chronic Current Visit: Yes Qualifiers: Anemia type: other cause Other causes of anemia: antineoplastic chemotherapy Qualified Code(s): D64.81 - Anemia due to antineoplastic chemotherapy; T45.1X5A - Adverse effect of antineoplastic and immunosuppressive drugs, initial encounter; T45.1X5A - Adverse effect of antineoplastic and immunosuppressive drugs, initial encounter (5) Thrombocytopenia SNOMED Code(s): 035425828 Code(s): D69.6 - THROMBOCYTOPENIA, UNSPECIFIED Status: Acute Current Visit: No (6) Lymphoma SNOMED Code(s): 816898659 Code(s): C85.90 - NON-HODGKIN LYMPHOMA, UNSPECIFIED, UNSPECIFIED SITE Status: Chronic Current Visit: No Qualifiers: 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 - Problem List Review Problem List Initiated/Reviewed/Updated: Yes - My Orders Last 24 Hours: My Active Orders 05/08/17 09:00 Vancomycin Pharmacy to Dose [Pharmacy to Dose - Vancomycin] 1 dose .XX ASDIRECTED 05/08/17 09:48 IS (RT) [RT Incentive Spirometry] [RC] ASDIRECTED 05/08/17 10:00 CULTURE SPUTUM + SMEAR [RM] Routine 05/08/17 10:34 Communication Order [RC] ROUTINE 05/09/17 08:05 Communication Order [RC] ROUTINE 05/09/17 08:48 Transfuse Red Blood Cells [COMM] Routine 05/09/17 08:49 Verify Patient Consent Obtain [RC] ASDIRECTED 05/09/17 09:10 RED BLOOD CELLS LP [BBK] Routine TYPE AND SCREEN [BBK] Routine 05/09/17 Lunch Neutropenic [DIET] 05/10/17 05:00 BASIC METABOLIC PANEL,BMP [CHEM] DAILY CBC WITH AUTO DIFF [HEME] DAILY MAGNESIUM [CHEM] DAILY - Plan Plan:: This 86 juana old female admitted with possible pneumonia and gram negative infection 1. Gram negative roby bacteremia: Likely secondary to pneumonia. 3/4 BC positive for E coli, continue Cefepime and Levaquin. UC mixed luis<1,000 and PICC line tip culture negative for growth. Repeat BC negative for growth x 1 day. 2. Pneumonia: Sputum obtained yesterday, reveals few gram positive cocci and may gram negative rods, GILBERTO pending. Cough improving and oxygen needs increasing. Continue Vancomycin, Cefepime and Levaquin due to immunocompromised state and extent of illness. Will continue oxygen and Duonebs. Flutter valve per RT and obtain sputum culture if possible. Encourage IS use as well. 3. Afib: Continue Metoprolol, well controlled. 4. Anemia: No bleeding noted, will monitor. Hgb 6.8 today, will transfuse 2 units PRBCs and monitor. 5. Thrombocytopenia: Continue to monitor, again no bleeding noted at this time. Plt 23 today will monitor. 6. Neutropenia: ANC 400 today, WBC 1,000. Place on neutropenic precautions and diet. Monitor closely. VTE prophylaxis: Will place on SCDs only for now due to anemia and thrombocytpenia. Dispo: 3-4 days pending improvement.
[2017-05-09] MEDS ORDERED: Calcium Carbonate 500 MG Tab.Chew PO ONE (10:25)
[2017-05-09] MEDS ORDERED: Furosemide 20 MG/2 ML VIAL IVPUSH ONE (16:36)
[2017-05-09] MEDS ORDERED: Cefepime 50 ML ONE (19:37)
[2017-05-09] MEDS: Temazepam 15 MG Cap PO PRN (22:31)
[2017-05-09] MEDS: Levofloxacin/Dextrose 5%-Water 750 MG in Premix Bag 1 BAG IV SCH (23:31)
[2017-05-10] MEDS ORDERED: Furosemide 40 MG/4 ML VIAL IVPUSH STA (00:52)
[2017-05-10] MEDS: guaiFENesin/Dextromethorphan 100-10 MG/5 ML Soln 10 ML Cup PO SCH ×6 (01:05→21:25)
[2017-05-10] MEDS: Albuterol/Ipratropium 3.0-0.5 MG/3 ML Neb Soln NEB SCH ×6 (02:20→23:10)
[2017-05-10] MEDS: Cefepime 2 GM in Premix Bag 1 BAG IV SCH (08:10)
[2017-05-10 08:50] LABS: CHLORIDE,CL 100 mmol/L (98-110); SODIUM,NA 141 mmol/L (136-146)
--- NOTE | 2017-05-10 09:38 | PCM.PN ---
- General Info Date of Service: 05/10/17 Admission Dx/Problem (Free Text): Admission Diagnosis/Problem Admission Diagnosis/Problem Shortness of breath Subjective Update: Today patient appears very fatigue and has started requiring 10 L SM. I spoke with family this morning and with Mary Kay. Mary Kay is alert and oriented, asking to "go home to [facility]". She reports not wanting anymore pokes or labwork and just "wants to be comfortable." claribel Brumfield, and Ronal, son both at bedside and are in agreement with plan to withdraw antibiotics. Will consult Hospice and change code status to comfort measures only. Functional Status: Denies: Ambulating - Review of Systems General: Denies: Fever Pulmonary: Reports: Shortness of Breath, Cough Cardiovascular: Reports: No Symptoms. Denies: Chest Pain, Edema Gastrointestinal: Denies: Abdominal Pain, Nausea, Vomiting 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: Reports: No Symptoms Musculoskeletal: Reports: No Symptoms Neurological: Reports: No Symptoms. Denies: Confusion Psychiatric: Reports: No Symptoms. Denies: Confusion - Patient Data Vitals - Most Recent: Last Vital Signs Temp 98.7 F 05/10/17 08:21 Pulse 107 H 05/10/17 08:21 Resp 20 05/10/17 08:21 BP 126/78 05/10/17 08:21 Pulse Ox 96 05/10/17 02:00 Weight - Most Recent: 41.867 kg I&O - Last 24 Hours: Intake & Output 05/09/17 05/10/17 05/10/17 22:59 06:59 14:59 Intake Total 1233 350 50 Output Total 620 3750 Balance 613 -3400 50 Lab Results Last 24 Hours: Laboratory Results - last 24 hr 05/09/17 05/10/17 05/10/17 Range/Units 09:10 08:00 08:11 WBC 2.19 L (4.0-11.0) K/uL RBC 3.85 L (4.30-5.90) M/uL Hgb 12.7 (12.0-16.0) g/dL Hct 35.6 L (36.0-46.0) % MCV 92.5 (80.0-98.0) fL MCH 33.0 H (27.0-32.0) pg MCHC 35.7 (31.0-37.0) g/dL RDW Std Deviation 65.1 H (28.0-62.0) fl RDW Coeff of Monica 20 H (11.0-15.0) % Plt Count 19 L (150-400) K/uL Add Manual Diff YES Neutrophils % (Manual) 41 L (48.0-80.0) % Band Neutrophils % 15 % Lymphocytes % (Manual) 25 (16.0-40.0) % Monocytes % (Manual) 18 H (0.0-15.0) % Eosinophils % (Manual) 1 (0.0-7.0) % Nucleated RBC % 0.0 /100WBC Absolute Seg Neuts 0.9 L (1.4-5.7) Band Neutrophils # 0.3 Lymphocytes # (Manual) 0.5 L (0.6-2.4) Monocytes # (Manual) 0.4 (0.0-0.8) Eosinophils # (Manual) 0.0 (0.0-0.7) Nucleated RBCs # 0 K/uL Sodium (136-146) mmol/L Potassium (3.5-5.1) mmol/L Chloride (98-110) mmol/L Carbon Dioxide (21-31) mmol/L BUN (6.0-23.0) mg/dL Creatinine (0.6-1.5) mg/dL Est Cr Clr Drug Dosing mL/min Estimated GFR (MDRD) ml/min Glucose (60-110) mg/dL Calcium (8.8-10.8) mg/dL Magnesium (1.5-2.3) mEq/L Vancomycin Trough 14.6 (5-15) ug/mL Blood Type O POSITIVE Antibody Screen NEGATIVE Crossmatch See Detail 05/10/17 Range/Units 08:11 WBC (4.0-11.0) K/uL RBC (4.30-5.90) M/uL Hgb (12.0-16.0) g/dL Hct (36.0-46.0) % MCV (80.0-98.0) fL MCH (27.0-32.0) pg MCHC (31.0-37.0) g/dL RDW Std Deviation (28.0-62.0) fl RDW Coeff of Monica (11.0-15.0) % Plt Count (150-400) K/uL Add Manual Diff Neutrophils % (Manual) (48.0-80.0) % Band Neutrophils % % Lymphocytes % (Manual) (16.0-40.0) % Monocytes % (Manual) (0.0-15.0) % Eosinophils % (Manual) (0.0-7.0) % Nucleated RBC % /100WBC Absolute Seg Neuts (1.4-5.7) Band Neutrophils # Lymphocytes # (Manual) (0.6-2.4) Monocytes # (Manual) (0.0-0.8) Eosinophils # (Manual) (0.0-0.7) Nucleated RBCs # K/uL Sodium 141 (136-146) mmol/L Potassium 3.4 L (3.5-5.1) mmol/L Chloride 100 (98-110) mmol/L Carbon Dioxide 29 (21-31) mmol/L BUN 13 (6.0-23.0) mg/dL Creatinine 0.6 (0.6-1.5) mg/dL Est Cr Clr Drug Dosing 42.83 mL/min Estimated GFR (MDRD) > 60.0 ml/min Glucose 109 (60-110) mg/dL Calcium 8.4 L (8.8-10.8) mg/dL Magnesium 1.2 L (1.5-2.3) mEq/L Vancomycin Trough (5-15) ug/mL Blood Type Antibody Screen Crossmatch Gilberto Results Last 24 Hours: Microbiology 05/08/17 08:11 Aerobic Blood Culture - Preliminary Blood - Venous - Lab Draw NO GROWTH AFTER 2 DAYS Anaerobic Blood Culture - Preliminary NO GROWTH AFTER 2 DAYS 05/08/17 08:00 Aerobic Blood Culture - Preliminary Blood - Venous NO GROWTH AFTER 2 DAYS Anaerobic Blood Culture - Preliminary NO GROWTH AFTER 2 DAYS 05/08/17 10:00 Gram Stain - Final Sputum - Expectorated Sputum Culture - Final YEAST Normal Respiratory Shyam 05/06/17 14:20 Catheter Tip Culture - Final Catheter Tip Other - Central Line No Growth 05/06/17 20:50 Urine Culture - Final Urine, Clean Catch MIXED SHYAM <1000 CFU/ML Med Orders - Current: Current Medications Acetaminophen (Tylenol) 650 mg PO BID PRN PRN Reason: Pain Albuterol (Proventil Neb Soln) 2.5 mg NEB Q2HR PRN PRN Reason: SOB/wheezing Last Admin: 05/08/17 00:26 Dose: 2.5 mg Albuterol/Ipratropium (Duoneb 3.0-0.5 Mg/3 Ml) 3 ml NEB Q4HRRT [facility] Last Admin: 05/10/17 05:57 Dose: 3 ml Benzonatate (Tessalon Perles) 200 mg PO TID PRN PRN Reason: Cough Last Admin: 05/07/17 23:18 Dose: 200 mg Duloxetine HCl (Cymbalta) 30 mg PO DAILY [facility] Last Admin: 05/09/17 08:14 Dose: 30 mg Guaifenesin/Dextromethorphan (Robitussin Dm) 5 ml PO Q4H [facility] Last Admin: 05/10/17 05:09 Dose: Not Given Lorazepam (Ativan) 1 mg IVPUSH Q4H PRN PRN Reason: agitation/anxiety Metoprolol Succinate (Toprol Xl) 50 mg PO DAILY [facility] Last Admin: 05/09/17 08:29 Dose: 50 mg Morphine Sulfate (Morphine) 2 mg IVPUSH Q2H PRN PRN Reason: pain/agitation/SOB Temazepam (Restoril) 15 mg PO BEDTIME PRN PRN Reason: Insomnia Last Admin: 05/09/17 22:31 Dose: 15 mg Tramadol HCl (Ultram) 50 mg PO BID [facility] Last Admin: 05/09/17 20:08 Dose: 50 mg Discontinued Medications Acetaminophen (Tylenol) 650 mg PO BID [facility] Last Admin: 05/09/17 20:06 Dose: 650 mg Albuterol (Proventil Neb Soln) 2.5 mg NEB ONETIME ONE Stop: 05/05/17 20:05 Last Admin: 05/05/17 20:25 Dose: 2.5 mg Albuterol/Ipratropium (Duoneb 3.0-0.5 Mg/3 Ml) 3 ml NEB Q6HRRT [facility] Last Admin: 05/06/17 21:45 Dose: 3 ml Calcium Carbonate/Glycine (Tums) 1,000 mg PO ONETIME ONE Stop: 05/09/17 10:26 Last Admin: 05/09/17 11:06 Dose: 1,000 mg Furosemide (Lasix) 20 mg IVPUSH ONETIME ONE Stop: 05/09/17 16:37 Last Admin: 05/09/17 16:46 Dose: 20 mg Furosemide (Lasix) 40 mg IVPUSH NOW STA Stop: 05/10/17 00:53 Last Admin: 05/10/17 01:06 Dose: 40 mg Guaifenesin/Dextromethorphan (Q-Tussin Dm) 5 ml PO Q4H [facility] Last Admin: 05/06/17 05:00 Dose: Not Given Levofloxacin/Dextrose 750 mg/ (Premix) 150 mls @ 100 mls/hr IV Q48H [facility] Last Admin: 05/09/17 23:31 Dose: 100 mls/hr Cefepime HCl 1 gm/ Premix 50 mls @ 100 mls/hr IV Q8H [facility] Last Admin: 05/06/17 12:06 Dose: Not Given Cefepime HCl 2 gm/ Premix 50 mls @ 100 mls/hr IV Q12H [facility] Last Admin: 05/10/17 08:10 Dose: 100 mls/hr Magnesium Sulfate 4 gm/ Premix 100 mls @ 50 mls/hr IV ONETIME ONE Stop: 05/06/17 15:43 Last Admin: 05/06/17 14:58 Dose: 50 mls/hr Vancomycin HCl 500 mg/ Sodium (Chloride) 100 mls @ 100 mls/hr IV Q12H [facility] Last Admin: 05/09/17 22:26 Dose: 100 mls/hr Cefepime HCl (Maxipime In D5w 2 Gm/50 Ml) Confirm Administered Dose 50 mls @ as directed .ROUTE .STK-MED ONE Stop: 05/09/17 19:38 Last Admin: 05/09/17 20:05 Dose: Not Given Methylprednisolone Sodium Succinate (Solu-Medrol) 125 mg IV ONETIME ONE Stop: 05/08/17 01:20 Methylprednisolone Sodium Succinate (Solu-Medrol) 125 mg IV ONETIME ONE Stop: 05/08/17 01:31 Last Admin: 05/08/17 01:32 Dose: 125 mg Non-Formulary Medication (Acetaminophen) 650 mg PO BID [facility] Last Admin: 05/06/17 02:23 Dose: Not Given Prednisone (Prednisone) 50 mg PO WITHBREAKFAST [facility] Last Admin: 05/07/17 10:21 Dose: Not Given Vancomycin HCl (Pharmacy To Dose - Vancomycin) 1 dose .XX ASDIRECTED CATIE - Exam Quality Assessment: Supplemental Oxygen (10 L SM), Urine Catheter General: Alert, Oriented, Cooperative, No Acute Distress HEENT: Pupils Equal, Pupils Reactive, EOMI, Mucous Membr. Moist/[place] Lungs: Decreased Breath Sounds, Rhonchi Cardiovascular: Regular Rate, Regular Rhythm Extremities: Pedal Edema (+1 edema) - Problem List & Annotations (1) Gram-negative bacteremia SNOMED Code(s): 070198775636 Code(s): R78.81 - BACTEREMIA Status: Acute Current Visit: Yes (2) Pneumonia SNOMED Code(s): 547391420 Code(s): J18.9 - PNEUMONIA, UNSPECIFIED ORGANISM Status: Acute Current Visit: No Qualifiers: Pneumonia type: due to unspecified organism Laterality: unspecified laterality Lung location: unspecified part of lung Qualified Code(s): J18.9 - Pneumonia, unspecified organism (3) SOB (shortness of breath) SNOMED Code(s): 763742206 Code(s): R06.02 - SHORTNESS OF BREATH Status: Acute Current Visit: Yes (4) Anemia SNOMED Code(s): 579520502 Code(s): D64.9 - ANEMIA, UNSPECIFIED Status: Chronic Current Visit: Yes Qualifiers: Anemia type: other cause Other causes of anemia: antineoplastic chemotherapy Qualified Code(s): D64.81 - Anemia due to antineoplastic chemotherapy; T45.1X5A - Adverse effect of antineoplastic and immunosuppressive drugs, initial encounter; T45.1X5A - Adverse effect of antineoplastic and immunosuppressive drugs, initial encounter (5) Thrombocytopenia SNOMED Code(s): 939581998 Code(s): D69.6 - THROMBOCYTOPENIA, UNSPECIFIED Status: Acute Current Visit: No (6) Lymphoma SNOMED Code(s): 939979925 Code(s): C85.90 - NON-HODGKIN LYMPHOMA, UNSPECIFIED, UNSPECIFIED SITE Status: Chronic Current Visit: No Qualifiers: 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 Gram negative roby bacteremia/pneumonia: Mary Kay has decided she no longer receive treatment for infection and would like to be comfort measures only. She keeps repeating "I just want to go home to [facility], I am just so tired." She states she doesnt want any more medications or pokes. She wants to remain comfortable. At this time she is very frail and transfer to home could be fatal for her. Will Consult Hospice today and monitor. Will order Morphine for air hunger, SOB, and pain will also order Ativan PRN for anxiety or agitation.
[2017-05-10] MEDS: traMADol 50 MG Tab PO SCH ×2 (09:45→21:24)
[2017-05-10] MEDS: Acetaminophen 325 MG Tab PO PRN ×2 (09:45→21:24)
--- NOTE | 2017-05-10 09:45 | CR ---
EXAMINATION: Portable chest radiograph. HISTORY: Shortness of breath. FINDINGS: The trachea is midline. The cardiomediastinal silhouette is within normal limits. There are trace monika ateral pleural effusions with adjacent bibasilar atelectasis. Chronic interstitial prominence again n oted. 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 Otherwise the osseous structures appear osteopen ic. IMPRESSION: Grossly unchanged trace bilateral pleural effusions.
[2017-05-10] MEDS: Acetaminophen 325 MG Tab PO SCH (10:17)
[2017-05-10] MEDS: DULoxetine 30 MG Cap PO SCH (10:19)
[2017-05-10] MEDS: Metoprolol Succinate 50 MG Tab.ER PO SCH (10:19)
[2017-05-10] MEDS: Morphine 2 MG/ML Syringe IVPUSH PRN ×2 (11:19→13:34)
[2017-05-11] MEDS: guaiFENesin/Dextromethorphan 100-10 MG/5 ML Soln 10 ML Cup PO SCH ×5 (01:36→23:49)
[2017-05-11] MEDS: Albuterol/Ipratropium 3.0-0.5 MG/3 ML Neb Soln NEB SCH ×5 (03:15→23:50)
[2017-05-11] MEDS: Morphine 2 MG/ML Syringe IVPUSH PRN ×4 (06:15→12:49)
[2017-05-11] MEDS: DULoxetine 30 MG Cap PO SCH (14:38)
[2017-05-11] MEDS: LORazepam 2 MG/ML SDV IVPUSH PRN ×3 (14:40→23:50)
--- NOTE | 2017-05-11 15:12 | PCM.SN ---
- Free Text/Narrative Note: S; She is on comfort measures . she has pneumonia and lymphoma O: alert ; no acute distress no current pain complaints no respiratory distress; taking some water; family reports no other food intake. A: pneumonia B cell lymphoma gram neg bacteremia ( e coli) P: on comfort measures as appears close. Nathan Herrera MD
[2017-05-11] MEDS: Metoprolol Succinate 50 MG Tab.ER PO SCH (15:38)
[2017-05-11] MEDS: traMADol 50 MG Tab PO SCH ×2 (15:39→23:50)
[2017-05-11 15:41] VITALS: BP 00/00
[2017-05-12] MEDS: LORazepam 2 MG/ML SDV IVPUSH PRN ×3 (04:14→12:51)
[2017-05-12] MEDS: Albuterol/Ipratropium 3.0-0.5 MG/3 ML Neb Soln NEB SCH ×4 (04:14→14:06)
[2017-05-12] MEDS: guaiFENesin/Dextromethorphan 100-10 MG/5 ML Soln 10 ML Cup PO SCH ×4 (04:14→14:06)
[2017-05-12] MEDS: DULoxetine 30 MG Cap PO SCH (10:12)
[2017-05-12] MEDS: Metoprolol Succinate 50 MG Tab.ER PO SCH (10:18)
[2017-05-12] MEDS: traMADol 50 MG Tab PO SCH (10:18)
[2017-05-12] MEDS: Morphine 2 MG/ML Syringe IVPUSH PRN ×5 (10:58→23:21)
--- NOTE | 2017-05-12 14:32 | PCM.SN ---
- Free Text/Narrative Note: the patient appears to be resting peacefully. lungs: CTA some increased work of breathing negligible po intake. IMpression: e coli sepsis, pneumonia; lymphoma Plan: comfort care; oxygen only for patient comfort discontinue po medicines I had a family meeting with her children ; we discussed comfort care. As appears imminent, they prefer at this time for her to stay in the hospital. Nathan Herrera MD
[2017-05-13] MEDS: Morphine 2 MG/ML Syringe IVPUSH PRN ×8 (01:41→23:42)
--- NOTE | 2017-05-13 13:25 | PCM.PN ---
- General Info Date of Service: 05/13/17 Admission Dx/Problem (Free Text): Comfort measures. Subjective Update: Mary Kay is not alert this morning, Family reports she has not been very responsive. Oxygen is off at this time. receiving Morphine and Ativan. - Patient Data Vitals - Most Recent: Last Vital Signs Temp 97.5 F 05/10/17 20:00 Pulse 98 05/12/17 04:00 Resp 24 H 05/12/17 04:00 BP 00/00 L 05/11/17 15:38 Pulse Ox 97 05/12/17 06:00 Weight - Most Recent: 41.867 kg I&O - Last 24 Hours: Intake & Output 05/12/17 05/13/17 05/13/17 22:59 06:59 14:59 Intake Total 10 Output Total 50 10 Balance -50 0 Gilberto Results Last 24 Hours: Microbiology 05/08/17 08:11 Aerobic Blood Culture - Final Blood - Venous - Lab Draw NO GROWTH AFTER 5 DAYS Anaerobic Blood Culture - Final NO GROWTH AFTER 5 DAYS 05/08/17 08:00 Aerobic Blood Culture - Final Blood - Venous NO GROWTH AFTER 5 DAYS Anaerobic Blood Culture - Final NO GROWTH AFTER 5 DAYS Med Orders - Current: Current Medications Albuterol (Proventil Neb Soln) 2.5 mg NEB Q2HR PRN PRN Reason: SOB/wheezing Last Admin: 05/08/17 00:26 Dose: 2.5 mg Lorazepam (Ativan) 1 mg IVPUSH Q4H PRN PRN Reason: agitation/anxiety Last Admin: 05/12/17 12:51 Dose: 1 mg Morphine Sulfate (Morphine) 2 - 4 mg IVPUSH Q1H PRN PRN Reason: pain/agitation/SOB Last Admin: 05/13/17 12:50 Dose: 2 mg Discontinued Medications Acetaminophen (Tylenol) 650 mg PO BID CATIE Last Admin: 05/10/17 10:17 Dose: Not Given Acetaminophen (Tylenol) 650 mg PO BID PRN PRN Reason: Pain Last Admin: 05/10/17 21:24 Dose: 650 mg Albuterol (Proventil Neb Soln) 2.5 mg NEB ONETIME ONE Stop: 05/05/17 20:05 Last Admin: 05/05/17 20:25 Dose: 2.5 mg Albuterol/Ipratropium (Duoneb 3.0-0.5 Mg/3 Ml) 3 ml NEB Q6HRRT CATIE Last Admin: 05/06/17 21:45 Dose: 3 ml Albuterol/Ipratropium (Duoneb 3.0-0.5 Mg/3 Ml) 3 ml NEB Q4HRRT [facility]IE Last Admin: 05/12/17 14:06 Dose: Not Given Benzonatate (Tessalon Perles) 200 mg PO TID PRN PRN Reason: Cough Last Admin: 05/07/17 23:18 Dose: 200 mg Calcium Carbonate/Glycine (Tums) 1,000 mg PO ONETIME ONE Stop: 05/09/17 10:26 Last Admin: 05/09/17 11:06 Dose: 1,000 mg Duloxetine HCl (Cymbalta) 30 mg PO DAILY [facility] Last Admin: 05/12/17 10:12 Dose: Not Given Furosemide (Lasix) 20 mg IVPUSH ONETIME ONE Stop: 05/09/17 16:37 Last Admin: 05/09/17 16:46 Dose: 20 mg Furosemide (Lasix) 40 mg IVPUSH NOW STA Stop: 05/10/17 00:53 Last Admin: 05/10/17 01:06 Dose: 40 mg Guaifenesin/Dextromethorphan (Q-Tussin Dm) 5 ml PO Q4H [facility] Last Admin: 05/06/17 05:00 Dose: Not Given Guaifenesin/Dextromethorphan (Robitussin Dm) 5 ml PO Q4H [facility] Last Admin: 05/12/17 14:06 Dose: Not Given Levofloxacin/Dextrose 750 mg/ (Premix) 150 mls @ 100 mls/hr IV Q48H [facility] Last Admin: 05/09/17 23:31 Dose: 100 mls/hr Cefepime HCl 1 gm/ Premix 50 mls @ 100 mls/hr IV Q8H [facility] Last Admin: 05/06/17 12:06 Dose: Not Given Cefepime HCl 2 gm/ Premix 50 mls @ 100 mls/hr IV Q12H [facility] Last Admin: 05/10/17 08:10 Dose: 100 mls/hr Magnesium Sulfate 4 gm/ Premix 100 mls @ 50 mls/hr IV ONETIME ONE Stop: 05/06/17 15:43 Last Admin: 05/06/17 14:58 Dose: 50 mls/hr Vancomycin HCl 500 mg/ Sodium (Chloride) 100 mls @ 100 mls/hr IV Q12H [facility] Last Admin: 05/10/17 10:17 Dose: Not Given Cefepime HCl (Maxipime In D5w 2 Gm/50 Ml) Confirm Administered Dose 50 mls @ as directed .ROUTE .STK-MED ONE Stop: 05/09/17 19:38 Last Admin: 05/09/17 20:05 Dose: Not Given Methylprednisolone Sodium Succinate (Solu-Medrol) 125 mg IV ONETIME ONE Stop: 05/08/17 01:20 Methylprednisolone Sodium Succinate (Solu-Medrol) 125 mg IV ONETIME ONE Stop: 05/08/17 01:31 Last Admin: 05/08/17 01:32 Dose: 125 mg Metoprolol Succinate (Toprol Xl) 50 mg PO DAILY [facility] Last Admin: 05/12/17 10:18 Dose: Not Given Morphine Sulfate (Morphine) 2 mg IVPUSH Q2H PRN PRN Reason: pain/agitation/SOB Last Admin: 05/12/17 10:58 Dose: 2 mg Non-Formulary Medication (Acetaminophen) 650 mg PO BID [facility] Last Admin: 05/06/17 02:23 Dose: Not Given Prednisone (Prednisone) 50 mg PO WITHBREAKFAST [facility] Last Admin: 05/07/17 10:21 Dose: Not Given Temazepam (Restoril) 15 mg PO BEDTIME PRN PRN Reason: Insomnia Last Admin: 05/09/17 22:31 Dose: 15 mg Tramadol HCl (Ultram) 50 mg PO BID [facility] Last Admin: 05/12/17 10:18 Dose: Not Given Vancomycin HCl (Pharmacy To Dose - Vancomycin) 1 dose .XX ASDIRECTED [facility] - Exam Quality Assessment: No: Supplemental Oxygen General: Lethargic Lungs: Clear to Auscultation, Other (shallow breaths, with periods of apnea) Cardiovascular: Tachycardia (ausculatation reveals irregular HR and tachycardia. ) (Female) Exam: Other (scant dark/concentrated urine output. ) Extremities: Pedal Edema, Mottled, Other (edema noted to bilateral hands. ) - Problem List & Annotations (1) Gram-negative bacteremia SNOMED Code(s): 067605572876 Code(s): R78.81 - BACTEREMIA Status: Acute Current Visit: Yes (2) Pneumonia SNOMED Code(s): 193923958 Code(s): J18.9 - PNEUMONIA, UNSPECIFIED ORGANISM Status: Acute Current Visit: No Qualifiers: Pneumonia type: due to unspecified organism Laterality: unspecified laterality Lung location: unspecified part of lung Qualified Code(s): J18.9 - Pneumonia, unspecified organism (3) SOB (shortness of breath) SNOMED Code(s): 978382586 Code(s): R06.02 - SHORTNESS OF BREATH Status: Acute Current Visit: Yes (4) Anemia SNOMED Code(s): 544841666 Code(s): D64.9 - ANEMIA, UNSPECIFIED Status: Chronic Current Visit: Yes Qualifiers: Anemia type: other cause Other causes of anemia: antineoplastic chemotherapy Qualified Code(s): D64.81 - Anemia due to antineoplastic chemotherapy; T45.1X5A - Adverse effect of antineoplastic and immunosuppressive drugs, initial encounter; T45.1X5A - Adverse effect of antineoplastic and immunosuppressive drugs, initial encounter (5) Thrombocytopenia SNOMED Code(s): 801168815 Code(s): D69.6 - THROMBOCYTOPENIA, UNSPECIFIED Status: Acute Current Visit: No (6) Lymphoma SNOMED Code(s): 553818551 Code(s): C85.90 - NON-HODGKIN LYMPHOMA, UNSPECIFIED, UNSPECIFIED SITE Status: Chronic Current Visit: No Qualifiers: 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 Continue with Ativan and Morphine PRN for agitation, air hunger, and pain. imminent. No oxygen at this time. Unresponsive with very little urine output, mottling noted to legs and feet. Family remains at bedside.
[2017-05-13] MEDS ORDERED: LORazepam Conc Solution 2 MG/ML 30 ML Bottle PO PRN (14:12)
[2017-05-13] MEDS ORDERED: Atropine 1% Ophth Soln 5 ML BOTTLE SL PRN (14:16)
[2017-05-14] MEDS: Morphine 2 MG/ML Syringe IVPUSH PRN ×9 (01:48→16:19)
--- NOTE | 2017-05-14 09:10 | PCM.PN ---
- General Info Date of Service: 05/14/17 Admission Dx/Problem (Free Text): Comfort measures. Subjective Update: Family at bedside. patient unresponsive. shallow breathing noted. scant urine in baumann. - Patient Data Vitals - Most Recent: Last Vital Signs Temp 97.5 F 05/10/17 20:00 Pulse 98 05/12/17 04:00 Resp 24 H 05/12/17 04:00 BP 00/00 L 05/11/17 15:38 Pulse Ox 97 05/12/17 06:00 Weight - Most Recent: 41.867 kg I&O - Last 24 Hours: Intake & Output 05/13/17 05/14/17 05/14/17 22:59 06:59 14:59 Intake Total 10 0 Output Total 10 80 Balance 0 -80 Gilberto Results Last 24 Hours: Microbiology 05/08/17 08:11 Aerobic Blood Culture - Final Blood - Venous - Lab Draw NO GROWTH AFTER 5 DAYS Anaerobic Blood Culture - Final NO GROWTH AFTER 5 DAYS 05/08/17 08:00 Aerobic Blood Culture - Final Blood - Venous NO GROWTH AFTER 5 DAYS Anaerobic Blood Culture - Final NO GROWTH AFTER 5 DAYS Med Orders - Current: Current Medications Albuterol (Proventil Neb Soln) 2.5 mg NEB Q2HR PRN PRN Reason: SOB/wheezing Last Admin: 05/08/17 00:26 Dose: 2.5 mg Atropine Sulfate (Atropine 1% Ophth Soln) 0.5 ml SL Q2H PRN PRN Reason: secretions Lorazepam (Ativan) 1 mg IVPUSH Q4H PRN PRN Reason: agitation/anxiety Last Admin: 05/12/17 12:51 Dose: 1 mg Lorazepam (Ativan) 1 mg PO Q4H PRN PRN Reason: agitation/anxiety Morphine Sulfate (Morphine) 2 - 4 mg IVPUSH Q1H PRN PRN Reason: pain/agitation/SOB Last Admin: 05/14/17 06:59 Dose: 2 mg Morphine Sulfate (Morphine 20 Mg/Ml Soln) 10 mg SL .Q30MIN PRN PRN Reason: SOB/agitation/airhunger Discontinued Medications Acetaminophen (Tylenol) 650 mg PO BID [facility]IE Last Admin: 05/10/17 10:17 Dose: Not Given Acetaminophen (Tylenol) 650 mg PO BID PRN PRN Reason: Pain Last Admin: 05/10/17 21:24 Dose: 650 mg Albuterol (Proventil Neb Soln) 2.5 mg NEB ONETIME ONE Stop: 05/05/17 20:05 Last Admin: 05/05/17 20:25 Dose: 2.5 mg Albuterol/Ipratropium (Duoneb 3.0-0.5 Mg/3 Ml) 3 ml NEB Q6HRRT CATIE Last Admin: 05/06/17 21:45 Dose: 3 ml Albuterol/Ipratropium (Duoneb 3.0-0.5 Mg/3 Ml) 3 ml NEB Q4HRRT [facility] Last Admin: 05/12/17 14:06 Dose: Not Given Benzonatate (Tessalon Perles) 200 mg PO TID PRN PRN Reason: Cough Last Admin: 05/07/17 23:18 Dose: 200 mg Calcium Carbonate/Glycine (Tums) 1,000 mg PO ONETIME ONE Stop: 05/09/17 10:26 Last Admin: 05/09/17 11:06 Dose: 1,000 mg Duloxetine HCl (Cymbalta) 30 mg PO DAILY [facility] Last Admin: 05/12/17 10:12 Dose: Not Given Furosemide (Lasix) 20 mg IVPUSH ONETIME ONE Stop: 05/09/17 16:37 Last Admin: 05/09/17 16:46 Dose: 20 mg Furosemide (Lasix) 40 mg IVPUSH NOW STA Stop: 05/10/17 00:53 Last Admin: 05/10/17 01:06 Dose: 40 mg Guaifenesin/Dextromethorphan (Q-Tussin Dm) 5 ml PO Q4H [facility] Last Admin: 05/06/17 05:00 Dose: Not Given Guaifenesin/Dextromethorphan (Robitussin Dm) 5 ml PO Q4H [facility] Last Admin: 05/12/17 14:06 Dose: Not Given Levofloxacin/Dextrose 750 mg/ (Premix) 150 mls @ 100 mls/hr IV Q48H [facility] Last Admin: 05/09/17 23:31 Dose: 100 mls/hr Cefepime HCl 1 gm/ Premix 50 mls @ 100 mls/hr IV Q8H [facility] Last Admin: 05/06/17 12:06 Dose: Not Given Cefepime HCl 2 gm/ Premix 50 mls @ 100 mls/hr IV Q12H [facility] Last Admin: 05/10/17 08:10 Dose: 100 mls/hr Magnesium Sulfate 4 gm/ Premix 100 mls @ 50 mls/hr IV ONETIME ONE Stop: 05/06/17 15:43 Last Admin: 05/06/17 14:58 Dose: 50 mls/hr Vancomycin HCl 500 mg/ Sodium (Chloride) 100 mls @ 100 mls/hr IV Q12H [facility] Last Admin: 05/10/17 10:17 Dose: Not Given Cefepime HCl (Maxipime In D5w 2 Gm/50 Ml) Confirm Administered Dose 50 mls @ as directed .ROUTE .STK-MED ONE Stop: 05/09/17 19:38 Last Admin: 05/09/17 20:05 Dose: Not Given Methylprednisolone Sodium Succinate (Solu-Medrol) 125 mg IV ONETIME ONE Stop: 05/08/17 01:20 Methylprednisolone Sodium Succinate (Solu-Medrol) 125 mg IV ONETIME ONE Stop: 05/08/17 01:31 Last Admin: 05/08/17 01:32 Dose: 125 mg Metoprolol Succinate (Toprol Xl) 50 mg PO DAILY [facility] Last Admin: 05/12/17 10:18 Dose: Not Given Morphine Sulfate (Morphine) 2 mg IVPUSH Q2H PRN PRN Reason: pain/agitation/SOB Last Admin: 05/12/17 10:58 Dose: 2 mg Non-Formulary Medication (Acetaminophen) 650 mg PO BID [facility] Last Admin: 05/06/17 02:23 Dose: Not Given Prednisone (Prednisone) 50 mg PO WITHBREAKFAST [facility] Last Admin: 05/07/17 10:21 Dose: Not Given Temazepam (Restoril) 15 mg PO BEDTIME PRN PRN Reason: Insomnia Last Admin: 05/09/17 22:31 Dose: 15 mg Tramadol HCl (Ultram) 50 mg PO BID [facility] Last Admin: 05/12/17 10:18 Dose: Not Given Vancomycin HCl (Pharmacy To Dose - Vancomycin) 1 dose .XX ASDIRECTED [facility] - Exam General: Lethargic, Obtunded Lungs: No: Normal Respiratory Effort (shallow with periods of apnea) Cardiovascular: Tachycardia Extremities: Normal Inspection, Normal Range of Motion, Non-Tender, No Pedal Edema, Normal Capillary Refill - Problem List & Annotations (1) Comfort measures only status SNOMED Code(s): 90228367321701 Code(s): Z51.5 - ENCOUNTER FOR PALLIATIVE CARE Status: Acute Current Visit: Yes (2) Gram-negative bacteremia SNOMED Code(s): 852374310651 Code(s): R78.81 - BACTEREMIA Status: Acute Current Visit: Yes (3) Pneumonia SNOMED Code(s): 842792009 Code(s): J18.9 - PNEUMONIA, UNSPECIFIED ORGANISM Status: Acute Current Visit: No Qualifiers: Pneumonia type: due to unspecified organism Laterality: unspecified laterality Lung location: unspecified part of lung Qualified Code(s): J18.9 - Pneumonia, unspecified organism (4) SOB (shortness of breath) SNOMED Code(s): 268340893 Code(s): R06.02 - SHORTNESS OF BREATH Status: Acute Current Visit: Yes (5) Anemia SNOMED Code(s): 331702679 Code(s): D64.9 - ANEMIA, UNSPECIFIED Status: Chronic Current Visit: Yes Qualifiers: Anemia type: other cause Other causes of anemia: antineoplastic chemotherapy Qualified Code(s): D64.81 - Anemia due to antineoplastic chemotherapy; T45.1X5A - Adverse effect of antineoplastic and immunosuppressive drugs, initial encounter; T45.1X5A - Adverse effect of antineoplastic and immunosuppressive drugs, initial encounter (6) Thrombocytopenia SNOMED Code(s): 575131171 Code(s): D69.6 - THROMBOCYTOPENIA, UNSPECIFIED Status: Acute Current Visit: No (7) Lymphoma SNOMED Code(s): 490564572 Code(s): C85.90 - NON-HODGKIN LYMPHOMA, UNSPECIFIED, UNSPECIFIED SITE Status: Chronic Current Visit: No Qualifiers: 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 Unresponsive with scant urine output. Continue with Morphine and Ativan. Imminent Family remains at bedside.
[2017-05-14] MEDS: Morphine Oral Concentrate 20 MG/ML 30 ML Bottle SL PRN ×9 (18:35→23:42)
[2017-05-15] MEDS: Morphine Oral Concentrate 20 MG/ML 30 ML Bottle SL PRN ×5 (00:14→02:59)
--- NOTE | 2017-05-15 11:27 | PCM.DCSUM1 ---
Discharge Summary - Hospital Course Brief History: This 86 year old female with omh of B cell lymphoma, afib and arthiritis presented to the ED with concerns of worsening SOB. Her daughter Brissa reported some cold symptoms, such as cough and URI symptoms. She gave some over the counter cold medicine and she felt slightly better. She then received her chemo dosing on with Neupogen and Prednisone therapy the following day. She started coughing more and more and with worsening SOB, she denies any fevers at home, no chest pain, no urinary symptoms and no abdominal pain. No black or bloody BMs. In the ED leukocytosis noted at 55,240, hgb 9.4 and platelets 88, BMP was WNL. CXR negative, BC were obtained. She was noted to be hypertensive, tachycardic and hypoxic on RA at 88%. She was treated with Levaquin and Cefepime and admitted with possible pneumonia and gram negative roby infection. - Discharge Data Discharge Date: 05/15/17 Discharge Disposition: 20 Condition: - Discharge Diagnosis/Problem(s) (1) Comfort measures only status SNOMED Code(s): 17192457335408 ICD Code: Z51.5 - ENCOUNTER FOR PALLIATIVE CARE Status: Acute (2) Gram-negative bacteremia SNOMED Code(s): 709335355074 ICD Code: R78.81 - BACTEREMIA Status: Acute (3) Pneumonia SNOMED Code(s): 714796144 ICD Code: J18.9 - PNEUMONIA, UNSPECIFIED ORGANISM Status: Acute Qualifiers: Pneumonia type: due to unspecified organism Laterality: unspecified laterality Lung location: unspecified part of lung Qualified Code(s): J18.9 - Pneumonia, unspecified organism (4) SOB (shortness of breath) SNOMED Code(s): 620072330 ICD Code: R06.02 - SHORTNESS OF BREATH Status: Acute (5) Anemia SNOMED Code(s): 136941181 ICD Code: D64.9 - ANEMIA, UNSPECIFIED Status: Chronic Qualifiers: Anemia type: other cause Other causes of anemia: antineoplastic chemotherapy Qualified Code(s): D64.81 - Anemia due to antineoplastic chemotherapy; T45.1X5A - Adverse effect of antineoplastic and immunosuppressive drugs, initial encounter; T45.1X5A - Adverse effect of antineoplastic and immunosuppressive drugs, initial encounter (6) Thrombocytopenia SNOMED Code(s): 083182401 ICD Code: D69.6 - THROMBOCYTOPENIA, UNSPECIFIED Status: Acute (7) Lymphoma SNOMED Code(s): 863884907 ICD Code: C85.90 - NON-HODGKIN LYMPHOMA, UNSPECIFIED, UNSPECIFIED SITE Status: Chronic Qualifiers: 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 - Patient Summary/Data Consults: Consultations 05/10/17 09:31 Consult to Hospice [CONS] Routine - Discharge Plan Home Medications: Home Meds Omeprazole 20 mg PO ACBREAKFAST 11/03/13 [History] Calcium Phosphate Trib/Vit D3 [Calcium Adult Gummies] 500 mg CHEW BID 02/01/17 [ History] Docusate Sodium [Stool Softener] 100 mg PO BID 02/01/17 [History] Ferrous Sulfate [Iron] 3 tab PO WEEKLY 02/01/17 [History] Fish Oil/[place]-3 Fatty Acids [Fish Oil 1,000 MG] 1 gm PO BEDTIME 02/01/17 [ History] Folic Acid 1 mg PO DAILY 02/01/17 [History] Multivitamin [Multivitamins] 1 tab PO DAILY 02/01/17 [History] Acetaminophen [Tylenol Arthritis] 650 mg PO BID 03/06/17 [History] Melatonin 3 mg PO BEDTIME 03/06/17 [History] Vit C/E/Zn/Coppr/Lutein/Zeaxan [Preservision Areds 2 Softgel] 1 cap PO DAILY [History] traMADol [Ultram] 50 mg PO BID 03/06/17 [History] Metoprolol Succinate [Toprol XL] 50 mg PO DAILY #30 tab.er 03/09/17 [Rx] Ondansetron HCl [Ondansetron] 8 mg PO Q8HR PRN 03/25/17 [History] Prochlorperazine [Compazine] 1 tab PO Q6HR PRN 03/25/17 [History] predniSONE [predniSONE] 2.5 tab PO ASDIRECTED 03/25/17 [History] DULoxetine [Cymbalta] 30 mg PO DAILY 05/05/17 [History] Forms: ED Department Discharge Referrals: PCP,None [Primary Care Provider] - - Discharge Summary/Plan Comment DC Time >30 min.: No Discharge Summary/Plan Comment: Admission diagnoses: Gram negative infection Pneumonia HTN Afib B cell lymphoma Immunocomprised secondary to chemotherapy Discharge diagnoses/Cause of : Gram negative pneumonia Gram negative bacteremia Protein malnutrition B cell lymphoma Immunocompromised secondary to chemotherapy Comfort measures HTN Afib Advanced age Mary Kay was admitted with possible gram negative roby infection with source initially unclear. BC returned very quickly with gram negative rods. She was continued on Levaquin and Cefepime. PICC line was removed due to positive BC. UA clear, and catheter tip returned with no growth. Due to cough and hypoxia, gram negative roby pneumonia thought to be likely source. Sputum culture returned with normal resp luis and yeast. BC returned 3/4 with E. Coli. During her stay Mary Kay's condition continued to worsen. Pancytopenia was noted. She was given 2 units PRBCs for hgb 6.8 on 05/09/2017. Middle of the night that night she started requiring 10 L SM and continued to become more weak and lethargic. I spoke with Mary Kay and family regarding decline and poor prognosis. Mary Kay decided she was ready to "go home to [facility]", and wanted all treatment to be stopped and to be made comfortable during her last days. She was at that time, 2016, made comfort measures. She continued to decline and was given Morphine PRN for air hunger and pain as well as Ativan for anxiety. Family called nursing into room at 0330 05/15/2017 for patient not breathing. No pulse or HR were detected, time of 0330. Famly at bedside. Dr. Aleman notified of . Today I notified PCP, Dr. Buck Evans of . - Patient Data Vitals - Most Recent: Last Vital Signs Temp 97.5 F 05/10/17 20:00 Pulse 98 05/12/17 04:00 Resp 24 H 05/12/17 04:00 BP 00/00 L 05/11/17 15:38 Pulse Ox 97 05/12/17 06:00 Weight - Most Recent: 41.867 kg I&O - Last 24 hours: Intake & Output 05/14/17 05/15/17 05/15/17 22:59 06:59 14:59 Intake Total 0 0 Output Total 50 25 Balance -50 -25 Med Orders - Current: Current Medications Discontinued Medications Acetaminophen (Tylenol) 650 mg PO BID [facility] Last Admin: 05/10/17 10:17 Dose: Not Given Acetaminophen (Tylenol) 650 mg PO BID PRN PRN Reason: Pain Last Admin: 05/10/17 21:24 Dose: 650 mg Albuterol (Proventil Neb Soln) 2.5 mg NEB ONETIME ONE Stop: 05/05/17 20:05 Last Admin: 05/05/17 20:25 Dose: 2.5 mg Albuterol (Proventil Neb Soln) 2.5 mg NEB Q2HR PRN PRN Reason: SOB/wheezing Last Admin: 05/08/17 00:26 Dose: 2.5 mg Albuterol/Ipratropium (Duoneb 3.0-0.5 Mg/3 Ml) 3 ml NEB Q6HRRT [facility] Last Admin: 05/06/17 21:45 Dose: 3 ml Albuterol/Ipratropium (Duoneb 3.0-0.5 Mg/3 Ml) 3 ml NEB Q4HRRT [facility] Last Admin: 05/12/17 14:06 Dose: Not Given Atropine Sulfate (Atropine 1% [facility] Soln) 0.5 ml SL Q2H PRN PRN Reason: secretions Last Admin: 05/15/17 02:43 Dose: 0.5 ml Benzonatate (Tessalon Perles) 200 mg PO TID PRN PRN Reason: Cough Last Admin: 05/07/17 23:18 Dose: 200 mg Calcium Carbonate/Glycine (Tums) 1,000 mg PO ONETIME ONE Stop: 05/09/17 10:26 Last Admin: 05/09/17 11:06 Dose: 1,000 mg Duloxetine HCl (Cymbalta) 30 mg PO DAILY [facility] Last Admin: 05/12/17 10:12 Dose: Not Given Furosemide (Lasix) 20 mg IVPUSH ONETIME ONE Stop: 05/09/17 16:37 Last Admin: 05/09/17 16:46 Dose: 20 mg Furosemide (Lasix) 40 mg IVPUSH NOW STA Stop: 05/10/17 00:53 Last Admin: 05/10/17 01:06 Dose: 40 mg Guaifenesin/Dextromethorphan (Q-Tussin Dm) 5 ml PO Q4H [facility] Last Admin: 05/06/17 05:00 Dose: Not Given Guaifenesin/Dextromethorphan (Robitussin Dm) 5 ml PO Q4H [facility] Last Admin: 05/12/17 14:06 Dose: Not Given Levofloxacin/Dextrose 750 mg/ (Premix) 150 mls @ 100 mls/hr IV Q48H [facility] Last Admin: 05/09/17 23:31 Dose: 100 mls/hr Cefepime HCl 1 gm/ Premix 50 mls @ 100 mls/hr IV Q8H [facility] Last Admin: 05/06/17 12:06 Dose: Not Given Cefepime HCl 2 gm/ Premix 50 mls @ 100 mls/hr IV Q12H [facility] Last Admin: 05/10/17 08:10 Dose: 100 mls/hr Magnesium Sulfate 4 gm/ Premix 100 mls @ 50 mls/hr IV ONETIME ONE Stop: 05/06/17 15:43 Last Admin: 05/06/17 14:58 Dose: 50 mls/hr Vancomycin HCl 500 mg/ Sodium (Chloride) 100 mls @ 100 mls/hr IV Q12H [facility] Last Admin: 05/10/17 10:17 Dose: Not Given Cefepime HCl (Maxipime In D5w 2 Gm/50 Ml) Confirm Administered Dose 50 mls @ as directed .ROUTE .STK-MED ONE Stop: 05/09/17 19:38 Last Admin: 05/09/17 20:05 Dose: Not Given Lorazepam (Ativan) 1 mg IVPUSH Q4H PRN PRN Reason: agitation/anxiety Last Admin: 05/12/17 12:51 Dose: 1 mg Lorazepam (Ativan) 1 mg PO Q4H PRN PRN Reason: agitation/anxiety Last Admin: 05/15/17 01:15 Dose: 1 mg Methylprednisolone Sodium Succinate (Solu-Medrol) 125 mg IV ONETIME ONE Stop: 05/08/17 01:20 Methylprednisolone Sodium Succinate (Solu-Medrol) 125 mg IV ONETIME ONE Stop: 05/08/17 01:31 Last Admin: 05/08/17 01:32 Dose: 125 mg Metoprolol Succinate (Toprol Xl) 50 mg PO DAILY [facility] Last Admin: 05/12/17 10:18 Dose: Not Given Morphine Sulfate (Morphine) 2 mg IVPUSH Q2H PRN PRN Reason: pain/agitation/SOB Last Admin: 05/12/17 10:58 Dose: 2 mg Morphine Sulfate (Morphine) 2 - 4 mg IVPUSH Q1H PRN PRN Reason: pain/agitation/SOB Last Admin: 05/14/17 16:19 Dose: 2 mg Morphine Sulfate (Morphine 20 Mg/Ml Soln) 10 mg SL .Q30MIN PRN PRN Reason: SOB/agitation/airhunger Last Admin: 05/15/17 02:59 Dose: 0.5 ml Non-Formulary Medication (Acetaminophen) 650 mg PO BID [facility] Last Admin: 05/06/17 02:23 Dose: Not Given Prednisone (Prednisone) 50 mg PO WITHBREAKFAST [facility] Last Admin: 05/07/17 10:21 Dose: Not Given Temazepam (Restoril) 15 mg PO BEDTIME PRN PRN Reason: Insomnia Last Admin: 05/09/17 22:31 Dose: 15 mg Tramadol HCl (Ultram) 50 mg PO BID [facility] Last Admin: 05/12/17 10:18 Dose: Not Given Vancomycin HCl (Pharmacy To Dose - Vancomycin) 1 dose .XX ASDIRECTED [facility] *Q Meaningful Use (DIS) - VTE *Q VTE Criteria *Q: - Stroke *Q Stroke Criteria *Q: - AMI *Q AMI Criteria *Q:
== END 2017-05-15 04:45 | disposition expired | DRG 871 ==
LOC: MW.ED 19:39 → MW.MS 21:50
PROVIDERS: ADMIT Internal Medicine; ATTEND Internal Medicine
PROC: 30233N1 Transfusion of Nonautologous Red Blood Cells into Peripheral Vein, Percutaneous Approach (ICD-10-PCS; principal; 2017-05-09)
DX: A41.9 Sepsis, unspecified organism (principal); J15.6 Pneumonia due to other Gram-negative bacteria; C85.90 Non-Hodgkin lymphoma, unspecified, unspecified site; F32.9 Major depressive disorder, single episode, unspecified; Z85.028 Personal history of other malignant neoplasm of stomach; Z87.891 Personal history of nicotine dependence; C83.30 Diffuse large B-cell lymphoma, unspecified site; E46 Unspecified protein-calorie malnutrition; D61.818 Other pancytopenia; B96.20 Unspecified Escherichia coli [E. coli] as the cause of diseases classified elsewhere; I48.91 Unspecified atrial fibrillation; M19.90 Unspecified osteoarthritis, unspecified site; R06.02 Shortness of breath; R09.02 Hypoxemia; R00.0 Tachycardia, unspecified; I10 Essential (primary) hypertension; D64.81 Anemia due to antineoplastic chemotherapy; T45.1X5A Adverse effect of antineoplastic and immunosuppressive drugs, initial encounter; Y92.019 Unspecified place in single-family (private) house as the place of occurrence of the external cause; D69.6 Thrombocytopenia, unspecified; Z51.5 Encounter for palliative care; Z79.899 Other long term (current) drug therapy
CPT/HCPCS: 36415; 36430; 51702; 71010; 71010-26; 71020; 71020-26; 80048; 80053; 80202; 81001; 83605; 83735; 85025; 86850; 86900; 86901; 86920; 86921; 86922; 87040; 87070; 87077; 87086; 87186; 87205; 94640; 99282; 99285-25; A9270-GY; J0692; J1940; J1956; J2060; J2270; J2930; J3370; J3475; J7030; P9016